=== PATIENT | female | born 1950 | race Caucasian/White ===

== ENCOUNTER 2018-07-02 11:46 | Inpatient (IN) ==
--- NOTE | 2018-07-02 12:27 | Emergency Department Note ---
Addendum entered and electronically signed by Reji Chopra DO 07/02/18 14:26: EKG #1 12:14 Heart rate 74 bpm, WI interval 132 ms, QRS duration 82 ms, QTC 44 ms, normal axi s. Sinus rhythm ventricular rate of 74 beats for minute. No evidence of any ischemic ST changes. Original Note: Disposition Clinical Impression: Anemia Qualifiers: Anemia type: unspecified type Qualified Code(s): D64.9 - Anemia, unspecified Disposition: Home, Self-Care Condition: Fair General Adult HPI - General Chief complaint: ED Recheck/Abnormal Lab/Rx Stated complaint: Low Hemoglobin Time Seen by Provider: 07/02/18 12:01 Source: patient Mode of arrival: ambulatory Limitations: no limitations Nursing Notes Reviewed: Yes Vital Signs Reviewed: Yes - History of Present Illness HPI Narrative: 67-year-old female presents emergency department with concern for low hemoglobin. Patient states that she has had recent blood transfusion last few months. She is following oncology for low hemoglobin. Was told by her physician to come into the emergency department as her hemoglobin was low. Patient reporting weakness. Reporting any bleeding. Denies any chest pain, pressure, tightness, nausea, vomiting. Pain Scale: 0 - Related Data Home Medications Medication Instructions Recorded Confirmed Levothyroxine [Synthroid] 50 mcg PO DAILY 09/04/15 05/04/18 Aspirin [Lo-Dose Aspirin EC] 81 mg PO DAILY 10/20/17 05/04/18 Atorvastatin Calcium [Lipitor] 80 mg PO HS 10/20/17 05/04/18 Cholecalciferol (Vitamin D3) 2,000 unit PO DAILY 10/20/17 05/04/18 [Vitamin D3] Metoprolol Succinate [Toprol Xl] 25 mg PO DAILY 01/26/18 05/04/18 Nitroglycerin [Nitrostat] 0.4 mg SL PRN PRN 05/04/18 05/04/18 Previous Rx's Medication Instructions Recorded Pyridoxine (B-6) [Vitamin B-6] 50 mg PO DAILY #30 tablet 05/04/18 Allergies Allergy/AdvReac Type Severity Reaction Status Date / Time No Known Allergies Allergy Verified 05/04/18 09:24 All systems ED: reviewed and negative except as stated. Review of Systems: As Per HPI Constitutional: Denies: fever Cardiovascular: Denies: chest pain, palpitations, syncope Respiratory: Denies: cough, dyspnea, hemoptysis Gastrointestinal: Denies: abdominal pain, nausea, vomiting, hematemesis, melena, hematochezia Genitourinary: Denies: hematuria Musculoskeletal: Denies: back pain Neurological: Reports: weakness Hematological/Lymphatic: Denies: easy bleeding Past Medical History - Past Medical History Medical history: Reports: thyroid disease Surgical history: Reports: cataract Psychiatric history: Reports: depression - Social History Smoking Status: Current every day smoker Smokeless Tobacco Status: No Alcohol use: Reports: none Drug use: Reports: none Physical Exam - General Limitations: no limitations General appearance: alert, in no apparent distress - Head Head exam: normocephalic - Eye Eye exam: Present: other (Conjunctival pallor) - ENT ENT exam: mucous membranes moist - Neck Neck exam: Present: trachea midline - Chest Chest inspection: Present: symmetric chest wall rise - Respiratory Respiratory exam: Present: normal lung sounds bilaterally. Absent: respiratory distress, accessory muscle use - Cardiovascular Cardiovascular exam: Present: regular rate, normal rhythm, normal heart sounds - Abdominal Exam Abdominal exam: Present: soft, Non-Tender. Absent: distention, guarding - Extremities Exam Extremities exam: Present: normal capillary refill - Back Exam Back exam: Present: full ROM - Neurological Exam Neurological exam: Present: alert, oriented X3 - Psychiatric Psychiatric exam: Present: normal affect, normal mood - Skin Skin exam: Present: warm, dry, intact, pallor. Absent: rash Course Vital Signs Temperature 98.6 F 07/02/18 11:52 Pulse Rate 90 07/02/18 11:52 Respiratory Rate 16 07/02/18 11:52 Blood Pressure 107/52 07/02/18 11:52 O2 Sat by Pulse Oximetry 100 07/02/18 11:52 Temperature 98.6 F 07/02/18 11:52 Pulse Rate 90 07/02/18 11:52 Respiratory Rate 16 07/02/18 11:52 Blood Pressure 107/52 07/02/18 11:52 O2 Sat by Pulse Oximetry 100 07/02/18 11:52 Oxygen Delivery Oxygen Delivery Room Air Medical Decision Making - MDM Narrative Medical decision making narrative: 67-year-old female presented to emergency department with concern for anemia. On physical exam, patient conjunctival pallor, was pale. She was reporting weakness as her symptoms. Hemoglobin here 4.4. I spoke with the shake feeder oncologist, Dr. Trinidad. He requested that I place an LDH, haptoglobin, reticulo cyte count. These results are pending. Patient to be admitted. I ordered 3 units of blood. Spoke with the patient bedside she agrees with the plan. Patient currently even though severely anemic, is hemodynamically stable not in any acute distress. Vital Signs Temperature 98.6 F 07/02/18 11:52 Pulse Rate 90 07/02/18 11:52 Respiratory Rate 16 07/02/18 11:52 Blood Pressure 107/52 07/02/18 11:52 O2 Sat by Pulse Oximetry 100 07/02/18 11:52 Temperature 98.6 F 07/02/18 11:52 Pulse Rate 90 07/02/18 11:52 Respiratory Rate 16 07/02/18 11:52 Blood Pressure 107/52 07/02/18 11:52 O2 Sat by Pulse Oximetry 100 07/02/18 11:52 Oxygen Delivery Oxygen Delivery Room Air - Lab Data Result diagrams: 07/02/18 12:26 07/02/18 12:26 Lab Results 07/02/18 07/02/18 07/02/18 Range/Units 12:26 12:26 12:26 WBC 3.0 L (4.3-11.1) K/mcL RBC 1.23 L (3.82-4.97) M/mcL Hgb 4.4 L* (11.5-15.4) g/dL Hct 13.6 L* (35.3-44.9) % MCV 110.6 H (83.0-100.0) fL MCH 35.8 H (28.0-33.3) pg MCHC 32.4 (31.6-35.5) g/dL RDW TNP Plt Count 207 (140-400) K/mcL MPV 12.4 (9.4-12.4) fL Reticulocyte # (0.05-0.10) M/mcL Immature Gran % 0.7 (0-4) % Seg Neutrophils % 33.6 % Lymphocytes % 55.3 % Monocytes % 5.0 % Eosinophils % 4.7 % Basophils % 0.7 % Neutrophils # 1.0 L (1.6-8.9) K/mcL Lymphocytes # 1.7 (0.6-4.6) K/mcL Monocytes # 0.2 (0.0-1.3) K/mcL Eosinophils # 0.1 (0.0-0.6) K/mcL Basophils # 0.0 (0.0-0.2) K/mcL Nucleated RBCs/100 WBC 0.7 H (0) /100 WBC Percent Retic (1.6-2.8) % Immature Retic Fraction (11.0-38.0) % Retic Hgb Equivalent (28.61-36.33) pg PT 13.1 H (9.4-12.1) Seconds INR 1.2 APTT 26.8 (26.0-36.0) Seconds Sodium 135 L (136-145) mEq/L Potassium 4.0 (3.5-5.1) mEq/L Chloride 106 (98-107) mEq/L Carbon Dioxide 24 (23-29) mEq/L BUN 9 (8-23) mg/dL Creatinine 0.80 (0.60-1.20) mg/dL Est GFR ( Amer) > 60 (> 60) Est GFR (Non-Af Amer) > 60 (> 60) BUN/Creatinine Ratio 11 (6-26) Glucose 103 (70-105) mg/dL Calculated Osmolality 279 L (280-300) Calcium 9.2 (8.6-10.3) mg/dL Blood Type Antibody Screen Crossmatch 07/02/18 07/02/18 Range/Units 12:26 13:06 WBC (4.3-11.1) K/mcL RBC (3.82-4.97) M/mcL Hgb (11.5-15.4) g/dL Hct (35.3-44.9) % MCV (83.0-100.0) fL MCH (28.0-33.3) pg MCHC (31.6-35.5) g/dL RDW Plt Count (140-400) K/mcL MPV (9.4-12.4) fL Reticulocyte # 0.02 L (0.05-0.10) M/mcL Immature Gran % (0-4) % Seg Neutrophils % % Lymphocytes % % Monocytes % % Eosinophils % % Basophils % % Neutrophils # (1.6-8.9) K/mcL Lymphocytes # (0.6-4.6) K/mcL Monocytes # (0.0-1.3) K/mcL Eosinophils # (0.0-0.6) K/mcL Basophils # (0.0-0.2) K/mcL Nucleated RBCs/100 WBC (0) /100 WBC Percent Retic 1.7 (1.6-2.8) % Immature Retic Fraction 35.2 (11.0-38.0) % Retic Hgb Equivalent 39.9 H (28.61-36.33) pg PT (9.4-12.1) Seconds INR APTT (26.0-36.0) Seconds Sodium (136-145) mEq/L Potassium (3.5-5.1) mEq/L Chloride (98-107) mEq/L Carbon Dioxide (23-29) mEq/L BUN (8-23) mg/dL Creatinine (0.60-1.20) mg/dL Est GFR ( Amer) (> 60) Est GFR (Non-Af Amer) (> 60) BUN/Creatinine Ratio (6-26) Glucose (70-105) mg/dL Calculated Osmolality (280-300) Calcium (8.6-10.3) mg/dL Blood Type O POSITIVE Antibody Screen NEGATIVE Crossmatch See Detail Attestation Statement - Attestation Attestation: I, Rob Basurto, examined this patient and my medical decision-making was reviewed with the AUTO HIKER/PA/Advanced Practice Nurse/Resident Physician. I agree with the documented findings, disposition and treatment plan as described except to the extent set forth below. 67-year-old female presents emergency Department with concerns of possible anemia. Patient states she has a history of anemia and follows Dr. Raza for further evaluation. Patient states she has had multiple scans and biopsies looking for source of her anemia without obvious etiology. Patient has required multiple transfusions in the past. She is felt weak and fatigued over the past 4 days. Denies recent fevers, chest pain, syncope, hematochezia, melena. We will obtain CBC and type and screen. Patient will likely require transfusion as she is pale on exam. EKG showed normal sinus rhythm with a rate of 74 without evidence of STEMI or other dysrhythmia. Laboratory evaluation and disposition pending at this time.
[2018-07-02 12:40] LABS: Platelet Count 207 K/mcL (140-400)
[2018-07-02 12:42] LABS: Basophils % 0.7 %; Eosinophils # 0.1 K/mcL (0.0-0.6); Eosinophils % 4.7 %; Immature Granulocytes % 0.7 % (0-4); Lymphocytes # 1.7 K/mcL (0.6-4.6); Lymphocytes % 55.3 %; Mean Corpuscular HGB Conc 32.4 g/dL (31.6-35.5); Mean Corpuscular Hemoglobin 35.8 pg (28.0-33.3); Mean Corpuscular Volume 110.6 fL (83.0-100.0); Mean Platelet Volume 12.4 fL (9.4-12.4); Monocytes # 0.2 K/mcL (0.0-1.3); Nucleated Red Blood Cells 0.7 /100 WBC (0); Red Blood Count 1.23 M/mcL (3.82-4.97); Segmented Neutrophils % 33.6 %
[2018-07-02 12:50] LABS: Hemoglobin 4.4 g/dL (11.5-15.4)
[2018-07-02 12:51] LABS: Hematocrit 13.6 % (35.3-44.9)
[2018-07-02 12:55] LABS: INR 1.2; Prothrombin Time 13.1 Seconds (9.4-12.1)
[2018-07-02 12:56] LABS: BUN/Creatinine Ratio 11 (6-26); Blood Urea Nitrogen 9 mg/dL (8-23); Calcium 9.2 mg/dL (8.6-10.3); Carbon Dioxide 24 mEq/L (23-29); Chloride 106 mEq/L (98-107); Glucose 103 mg/dL (70-105); Osmolality,Calculated 279 (280-300); Sodium 135 mEq/L (136-145); eGFR For Non-African Americans > 60 (> 60)
[2018-07-02 12:57] LABS: Activated Partial Thrombo Time 26.8 Seconds (26.0-36.0)
[2018-07-02 13:26] LABS: Immature Reticulocyte % 35.2 % (11.0-38.0); Retculocyte # 0.02 M/mcL (0.05-0.10); Reticulocyte % 1.7 % (1.6-2.8)
--- NOTE | 2018-07-02 15:05 | Oncology Inp Consult Note ---
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 This is most clinically c/w MDS with ringed sideroblasts. In preparation for erythropoietin stimulating agents, will assess baseline erythropoietin level. Aranesp to be arranged as an outpatient pending insurance approval. Agree with transfusion of 3 U PRBC. Will repeat CBC in AM. [place] for H/H to be at a minimum of 7, preferably 8, at discharge. Will write for Lasix 40 mg po x 1 between unit 2 and 3 Will write for normal diet. May d/c tomorrow if H/H at goal. I will arrange f/u with Dr. Mendoza next week. - Data of Consult Patient: known to practice within the last 3 years Requesting Physician: Sushant Valencia MD Primary Care Provider: Marcela Gonsales MD - Consult Narrative Reason for consult: Anemia History of present illness: Ms. Olguin is a 67 year old female who is under the care of my partner, Dr. Bullock, with newly diagnosed MDS. She presented with worsening macrocytic anemia over the past year. Bone marrow aspirate and biopsy December 2016 revealed a normal cellular marrow with adequate iron. Cytogenetics were normal. Fish was not performed. Iron stores were adequate. Patient was hospitalized April 02 [id number] with a hemoglobin of 5. She received 2 units packed red blood cells. Hemoglobin was 8.4 at her last visit in this office May 04.. Repeat bone ma rrow aspirate and biopsy April 2018 revealed a normocellular bone marrow with increased ring sideroblasts, mild relative erythroid hyperplasia with mild megaloblastic/ megaloblastoid change. Aranesp was recommended but not approved by her insurance. Pyridoxine initiated. Molecular analysis shows an SF3B1 mutation. She presented emergency department with profound fatigue, REDDY and labs by Dr. Teran with a hemoglobin of 4.4, MCV 110.6, MCH 35.8, white blood cell count 3000 with 1000 neutrophils and platelet count of 207,000. 3 units of packed blood cells have been arranged by the emergency department attending. Currently, she feels well. No angina/chest pain or resting SOB. No lower extremity swelling. Just worn out and hungry. Denies any bleeding symptoms including epistaxis, hemoptysis, hematemesis, melena or hematochezia. Past Med Surg Social Fam HX - Past Medical History Medical history: thyroid disease, other Additional medical history: heart murmur. SMOKER. HIGH CHOLESTEROL. HYPOTHYROIDISM. MDS Psychiatric history: depression - Past Surgical History Surgical History: cataract Additional surgical history: BRAIN SURGERY. TUBAL LIGATION. D & C - Social History Smoking Status: Current every day smoker Smokeless Tobacco Status: No Alcohol use: none Drug use: none Medications and Allergies Levothyroxine [Synthroid] 50 mcg PO DAILY 09/04/15 [History] Aspirin [Lo-Dose Aspirin EC] 81 mg PO DAILY 10/20/17 [History] Atorvastatin Calcium [Lipitor] 80 mg PO HS 10/20/17 [History] Cholecalciferol (Vitamin D3) [Vitamin D3] 2,000 unit PO DAILY 10/20/17 [History] Metoprolol Succinate [Toprol Xl] 25 mg PO DAILY 01/26/18 [History] Nitroglycerin [Nitrostat] 0.4 mg SL PRN PRN 05/04/18 [History] Pyridoxine (B-6) [Vitamin B-6] 50 mg PO DAILY #30 tablet 05/04/18 [Rx] Allergy/AdvReac Type Severity Reaction Status Date / Time No Known Allergies Allergy Verified 05/04/18 09:24 All systems: reviewed and no additional remarkable complaints except as stated Constitutional: Present: fatigue, lethargy, malaise, weakness Eyes: Present: as per HPI Ears: Present: as per HPI Nose, mouth and throat: Present: as per HPI Cardiovascular: Present: dyspnea on exertion Respiratory: Present: as per HPI Gastrointestinal: Present: as per HPI Oncology - Exam - Constitutional Vitals: Temp Pulse Resp BP Pulse Ox 98.6 F 90 16 108/48 100 07/02/18 13:50 07/02/18 13:50 07/02/18 13:50 07/02/18 13:50 07/02/18 13:50 General appearance: average body habitus, no acute distress, thin - Head Head exam: Present: atraumatic, normal inspection, normocephalic - Eye Eye exam: Present: normal appearance, sclera anicteric Additional comments: Conjuctiva pale - ENT ENT exam: Present: mucous membranes moist, normal exam, normal oropharynx - Neck Neck exam: Present: full ROM, normal inspection - Respiratory Respiratory exam: Present: CTAB - Cardiovascular Cardiovascular exam: Present: RRR, systolic murmur - GI/Abdominal GI/Abdominal exam: Present: normal bowel sounds, soft - Extremities Exam Extremities exam: Present: normal inspection - Back Exam Back exam: Present: normal inspection - Neurological Exam Neurological exam: Present: alert, CN II-XII intact, normal gait, oriented X3, no focal deficits - Skin Skin exam: Present: pallor Oncology - Results Labs: 07/02/18 07/02/18 07/02/18 13:06 12:26 12:26 WBC RBC Hgb Hct MCV MCH MCHC RDW Plt Count MPV Reticulocyte # 0.02 L Immature Gran % Seg Neutrophils % Lymphocytes % Monocytes % Eosinophils % Basophils % Neutrophils # Lymphocytes # Monocytes # Eosinophils # Basophils # Nucleated RBCs/100 WBC Percent Retic 1.7 Immature Retic Fraction 35.2 Retic Hgb Equivalent 39.9 H PT INR APTT Sodium 135 L Potassium 4.0 Chloride 106 Carbon Dioxide 24 BUN 9 Creatinine 0.80 Est GFR ( Amer) > 60 Est GFR (Non-Af Amer) > 60 BUN/Creatinine Ratio 11 Glucose 103 Calculated Osmolality 279 L Calcium 9.2 Blood Type O POSITIVE Antibody Screen NEGATIVE Crossmatch See Detail 07/02/18 07/02/18 12:26 12:26 WBC 3.0 L RBC 1.23 L Hgb 4.4 L* Hct 13.6 L* MCV 110.6 H MCH 35.8 H MCHC 32.4 RDW TNP Plt Count 207 MPV 12.4 Reticulocyte # Immature Gran % 0.7 Seg Neutrophils % 33.6 Lymphocytes % 55.3 Monocytes % 5.0 Eosinophils % 4.7 Basophils % 0.7 Neutrophils # 1.0 L Lymphocytes # 1.7 Monocytes # 0.2 Eosinophils # 0.1 Basophils # 0.0 Nucleated RBCs/100 WBC 0.7 H Percent Retic Immature Retic Fraction Retic Hgb Equivalent PT 13.1 H INR 1.2 APTT 26.8 Sodium Potassium Chloride Carbon Dioxide BUN Creatinine Est GFR ( Amer) Est GFR (Non-Af Amer) BUN/Creatinine Ratio Glucose Calculated Osmolality Calcium Blood Type Antibody Screen Crossmatch Consult Discharge Plan - Plan Referrals: Marcela Gonsales MD [Primary Care Provider] - Inpatient Charges Provider: Dr. Radha Trinidad Consult - Observation: [id number]
[2018-07-02 15:29] LABS: Lactate Dehydrogenase 228 Units/L (140-271)
[2018-07-02] MEDS ORDERED: 0.9 % Sodium Chloride 250 ML ONE ×2 (17:26→21:40)
[2018-07-02] MEDS ORDERED: Naloxone 0.4 MG/ML INJ IVP PRN (18:34)
[2018-07-02] MEDS ORDERED: Nitroglycerin 0.4 MG TAB.SUBL SL PRN (18:39)
--- NOTE | 2018-07-02 18:41 | Internal Med History&Physical ---
Date of Encounter: 07/02/18 Time of Encounter: 18:41 Internal Medicine - H&P: HPI Chief complaint: I might have anemia Admitted From: Home Plans for Post Hospital Care: Home History of present illness: Ms. Olguin is a 67 year old female with PMH of HTN, HLD, Chronic anemia, MDS , tobacco abuse, who follows up with hematology and has had multiple admissions in the past She reports having gone to Dr. Teran for a regular follow up and complained of flu-like symptoms, and weakness and easy fatigability. Dr. Teran checked her Hb and called her from home to present to the ER due to anemia At my time of review, she has no new complains and is asynptomatic She had been ordered 3 units of blood and is currently receiving transfusion No angina/chest pain or resting SOB. No lower extremity swelling. Just worn out and hungry. Denies any bleeding symptoms including epistaxis, hemoptysis, hematemesis, melena or hematochezia. Sinus rhythm ventricular rate of 74 beats for minute. No evidence of any ischemic ST changes. Hb on arrival 4.4, PLT WNL, WBC 3.0, Coag panel WNL, Chem WNL, LDH 228, She is currently hemodynamically stable, and has been reviewed by oncology Past Med Surg Social Fam HX - Past Medical History Medical history: hypertension, thyroid disease, other Additional medical history: heart murmur. SMOKER. HIGH CHOLESTEROL. HYPOTHYROIDISM. MDS Psychiatric history: depression - Past Surgical History Surgical History: cataract Additional surgical history: BRAIN SURGERY. TUBAL LIGATION. D & C - Social History Smoking Status: Current every day smoker Smokeless Tobacco Status: No Alcohol use: none Drug use: none - Family History Mother Age: 79 Family Member Ethnicity: Non- Living Status: Age at : 79 Cause of : cancer Hx Family Cancer: Yes Internal Medicine - H&P: Meds Aspirin [Lo-Dose Aspirin EC] 81 mg PO DAILY 10/20/17 [History] Atorvastatin Calcium [Lipitor] 80 mg PO HS 10/20/17 [History] Cholecalciferol (Vitamin D3) [Vitamin D3] 2,000 unit PO DAILY 10/20/17 [History] Metoprolol Succinate [Toprol Xl] 25 mg PO DAILY 01/26/18 [History] Nitroglycerin [Nitrostat] 0.4 mg SL PRN PRN 05/04/18 [History] Pyridoxine (B-6) [Vitamin B-6] 50 mg PO DAILY #30 tablet 05/04/18 [Rx] Levothyroxine [Synthroid] 75 mcg PO QAM 07/02/18 [History] Allergy/AdvReac Type Severity Reaction Status Date / Time No Known Allergies Allergy Verified 05/04/18 09:24 All Systems PM: A 10-system review of systems was performed and is negative for pertinent findings except as documented above in the HPI. - Constitutional Constitutional: as per HPI, malaise, no chills, no fever(s), no night sweats - EENT Eyes: no change in vision, no discharge, no pain, no photophobia Ears: no ear discharge, no ear pain, no tinnitus Nose, mouth and throat: no dysphagia, no nasal discharge, no neck pain, no sore throat - Cardiovascular Cardiovascular ROS IM: no chest pain, no diaphoresis, no dyspnea, no lightheadedness, no palpitations, no syncope - Respiratory Respiratory: no cough, no dyspnea, no wheezing, no excessive phlegm production - Gastrointestinal Gastrointestinal: no abdominal pain, no diarrhea, no hematemesis, no hematochezia, no melena, no nausea, no vomiting - Genitourinary Genitourinary: no change in urinary stream, no dysuria, no flank pain, no hematuria - Musculoskeletal Musculoskeletal ROS IM: no numbness, no tingling - Integumentary Integumentary IM: no rash, no unusual bruising - Neurological Neurological ROS: no confusion, no convulsions, no focal weakness, no numbness, no tingling, no tremor(s) - Hematologic/Lymphatic Hematologic/Lymphatic: no easy bruising - Constitutional Vitals: Temp Pulse Resp BP Pulse Ox 98.4 F 79 16 92/46 100 07/02/18 17:50 07/02/18 17:50 07/02/18 17:50 07/02/18 17:50 07/02/18 17:35 General appearance: Present: A&O X 3, pleasant, no acute distress Exam: see below - Head Head exam: Present: atraumatic, normocephalic - Eye Eye exam: Present: PERRL, conjuntiva pink, sclera anicteric Pupils: Present: PERRL - Neck Neck exam general surgery: Present: supple, trachea midline. Absent: lymphadenopathy - Respiratory Respiratory exam: Present: CTAB. Absent: accessory muscle use, rales, rhonchi, wheezes - Cardiovascular Cardiovascular exam: Present: RRR, +S1, +S2, systolic murmur. Absent: diastolic murmur, gallop, rubs - GI/Abdominal GI/Abdominal exam: Present: normal bowel sounds, soft, no peritoneal signs. Absent: distended, tenderness - Extremities Exam Extremities exam: Present: warm, radial pulses palpable and symmetrical. Absent: calf tenderness, cyanotic, pedal edema - Neurological Exam Neurological exam: Present: CN II-XII intact, oriented X3, no focal deficits. Absent: pronater drift, facial droop, speech deficit - Skin Skin exam: Present: dry, intact Internal Med - H&P Results - Labs CBC & Chem 7: 07/02/18 12:26 07/02/18 12:26 Labs: Short CBC 07/02/18 Range/Units 12:26 WBC 3.0 L (4.3-11.1) K/mcL Hgb 4.4 L* (11.5-15.4) g/dL Hct 13.6 L* (35.3-44.9) % Plt Count 207 (140-400) K/mcL Neutrophils # 1.0 L (1.6-8.9) K/mcL BMP 07/02/18 12:26 Sodium 135 L Potassium 4.0 Chloride 106 Carbon Dioxide 24 BUN 9 Creatinine 0.80 Glucose 103 Calcium 9.2 - Assessment and plan (1) Anemia Current Visit: Yes Status: Acute Assessment and plan: Continue RBC transfusion X3 lasix inbetween doses Hold metoprolol, blood pressure is soft No evidence of bleeding Continue home multivitamins Onc eval noted Qualifiers: Anemia type: unspecified type Qualified Code(s): D64.9 - Anemia, unspecified (2) HTN (hypertension) Current Visit: Yes Status: Chronic Assessment and plan: Hold metoprolol Qualifiers: Hypertension type: essential hypertension Qualified Code(s): I10 - Essential (primary) hypertension (3) HLD (hyperlipidemia) Current Visit: Yes Status: Acute Qualifiers: Hyperlipidemia type: unspecified Qualified Code(s): E78.5 - Hyperlipidemia, unspecified (4) Myelodysplasia (myelodysplastic syndrome) Current Visit: Yes Status: Chronic Assessment and plan: Karl blevins noted, appreciated, follow recs (5) Tobacco abuse Current Visit: Yes Status: Chronic Assessment and plan: encourage cessation - Time Spent With Patient Total time spent is greater than 50% in coordination of care (as documented) at patient's floor/unit and/or counseling patient:
[2018-07-02] MEDS ORDERED: Furosemide 40 MG TABLET PO ONE (20:00)
[2018-07-03] MEDS ORDERED: 0.9 % Sodium Chloride 250 ML ONE (02:47)
[2018-07-03 06:50] LABS: Basophils # 0.1 K/mcL (0.0-0.2); Basophils % 1.9 %; Eosinophils # 0.2 K/mcL (0.0-0.6); Eosinophils % 5.2 %; Hematocrit 22.6 % (35.3-44.9); Hemoglobin 7.7 g/dL (11.5-15.4); Immature Granulocytes % 0.6 % (0-4); Lymphocytes # 1.6 K/mcL (0.6-4.6); Lymphocytes % 52.6 %; Mean Corpuscular HGB Conc 34.1 g/dL (31.6-35.5); Mean Corpuscular Hemoglobin 32.4 pg (28.0-33.3); Mean Platelet Volume 12.3 fL (9.4-12.4); Monocytes # 0.1 K/mcL (0.0-1.3); Monocytes % 4.5 %; Neutrophils # 1.1 K/mcL (1.6-8.9); Nucleated Red Blood Cells 0.6 /100 WBC (0); Platelet Count 170 K/mcL (140-400); Red Blood Count 2.38 M/mcL (3.82-4.97); Red Cell Distribution Width 22.9 % (11.5-14.5); Segmented Neutrophils % 35.2 %
[2018-07-03 07:10] LABS: Alanine Aminotransferase 12 Units/L (7-52); Albumin 3.7 g/dL (3.5-5.7); Albumin/Globulin Ratio 1.7 (1.1-2.2); Alkaline Phosphatase 67 Units/L (34-104); Aspartate Amino Transferase 18 Units/L (13-39); BUN/Creatinine Ratio 15 (6-26); Bilirubin,Total 2.7 mg/dL (0.3-1.0); Blood Urea Nitrogen 11 mg/dL (8-23); Calcium 8.9 mg/dL (8.6-10.3); Carbon Dioxide 22 mEq/L (23-29); Chloride 110 mEq/L (98-107); Globulin 2.2 g/dL (2.4-3.5); Glucose 88 mg/dL (70-105); Osmolality,Calculated 283 (280-300); Potassium 4.1 mEq/L (3.5-5.1); Sodium 137 mEq/L (136-145); Total Protein 5.9 g/dL (6.4-8.9); eGFR For Non-African Americans > 60 (> 60)
[2018-07-03 07:54] VITALS: BP 107/47
[2018-07-03] MEDS ORDERED: Aspirin Enteric Coated 81 MG Tablet PO SCH (09:00)
[2018-07-03] MEDS ORDERED: Cholecalciferol (D-3) 1,000 UNIT TABLET PO SCH (09:00)
[2018-07-03] MEDS ORDERED: Pyridoxine (B-6) 50 MG TABLET PO SCH (09:00)
[2018-07-03] MEDS ORDERED: Metoprolol XL (24 HR) Succ 25 MG TAB.ER.24H PO SCH (09:00)
--- NOTE | 2018-07-03 10:07 | Discharge Summary ---
- NOTES TO OUTPATIENT PROVIDER Notes to Outpatient Provider: 67 F with MDS who presented with symptomatic anemia due to progression of disease, no bleeding, Hb 4.4 on arrival, no source of bleeding, received 3 untis RBCs, Hb improved to 7.7 this a.m, patient is asymptomatic and hemodynamically stable. Blood pressure is low normal and patient's home dose of metoprolol has been decreased to 12.5mg daily. Oncology saw patient in admission and recommended follow up within the week. Smoking cessation encouraged. Plan of care discussed, verbalized understanding Orders not resulted at time of discharge: Pending orders 07/02/18 13:06 Haptoglobin Stat 07/03/18 06:23 Erythropoietin AM 0400 Date of Encounter: 07/03/18 Time of Encounter: 10:06 - Discharge Diagnosis (1) Anemia Priority: Primary Status: Acute Qualifiers: Anemia type: unspecified type Qualified Code(s): D64.9 - Anemia, unspecified (2) HTN (hypertension) Priority: Secondary Status: Chronic Qualifiers: Hypertension type: essential hypertension Qualified Code(s): I10 - Essential (primary) hypertension (3) HLD (hyperlipidemia) Priority: Secondary Status: Chronic Qualifiers: Hyperlipidemia type: unspecified Qualified Code(s): E78.5 - Hyperlipidemia, unspecified (4) Myelodysplasia (myelodysplastic syndrome) Priority: Secondary Status: Chronic (5) Tobacco abuse Priority: Secondary Status: Chronic Hospital course: Ms. Olguin is a 67 year old female with PMH of HTN, HLD, Chronic anemia, MDS , tobacco abuse, who follows up with hematology and has had multiple admissions in the past 67 F with MDS who presented with symptomatic anemia due to progression of disease, no bleeding, Hb 4.4 on arrival, no source of bleeding, No angina/chest pain or resting SOB. No lower extremity swelling. Just worn out and hungry. Denies any bleeding symptoms including epistaxis, hemoptysis, hematemesis, melena or hematochezia. Sinus rhythm ventricular rate of 74 beats for minute. No evidence of any ischemic ST changes. Hb on arrival 4.4, PLT WNL, WBC 3.0, Coag panel WNL, Chem WNL, LDH 228, She is currently hemodynamically stable, and has been reviewed by oncology She received 3 untis RBCs, Hb improved to 7.7 this a.m, patient is asymptomatic and hemodynamically stable. Blood pressure is low normal and patient's home dose of metoprolol has been decreased to 12.5mg daily. Oncology saw patient in admission and recommended follow up within the week. Also, patient has follow up with PCP 07/09 Smoking cessation encouraged, counselled for 3 mins Plan of care discussed, verbalized understanding Discharge discussed with: patient, nurse Time spent discussing smoking cessation with patient: 3 to 10 minutes - Time Spent with Patient Total time spent providing and/or coordinating discharge services: Less than 30 minutes - Discharge Medications Prescriptions: Metoprolol XL (24 HR) Succ [Toprol XL] 12.5 mg PO DAILY #30 tab.er.24h Home Medications: Aspirin [Lo-Dose Aspirin EC] 81 mg PO DAILY 10/20/17 [History] Atorvastatin Calcium [Lipitor] 80 mg PO HS 10/20/17 [History] Cholecalciferol (Vitamin D3) [Vitamin D3] 2,000 unit PO DAILY 10/20/17 [History] Nitroglycerin [Nitrostat] 0.4 mg SL PRN PRN 05/04/18 [History] Pyridoxine (B-6) [Vitamin B-6] 50 mg PO DAILY #30 tablet 05/04/18 [Rx] Levothyroxine [Synthroid] 75 mcg PO QAM 07/02/18 [History] Metoprolol XL (24 HR) Succ [Toprol XL] 12.5 mg PO DAILY #30 tab.er.24h 07/03/18 [Rx] Allergies/Adverse Reactions: Allergy/AdvReac Type Severity Reaction Status Date / Time No Known Allergies Allergy Verified 05/04/18 09:24 Date of admission: 07/02/18 19:09 Primary care physician: Marcela Gonsales MD Consults: 07/02/18 13:06 Consult to Oncology Hematology [CONS] Stat Consulting Provider: Mykel Trinidad Reason for Consult: hemoglobin 4.4 Time Notified: 13:07 Call Completed: Yes Discharging clinician: Rubio Cheng Anticipated date of discharge: 07/03/18 - Constitutional Vitals: Temp Pulse Resp BP Pulse Ox 98.1 F 67 16 107/47 96 07/03/18 07:52 07/03/18 07:52 07/03/18 07:52 07/03/18 07:52 07/03/18 07:52 General appearance: Present: A&O X 3, pleasant, no acute distress Exam: see below - Head Head exam: Present: atraumatic, normocephalic - Eye Eye exam: Present: PERRL, conjuntiva pink, sclera anicteric Pupils: Present: PERRL - Neck Neck exam general surgery: Present: supple, trachea midline. Absent: lymphadenopathy - Respiratory Respiratory exam: Present: CTAB. Absent: accessory muscle use, rales, rhonchi, wheezes - Cardiovascular Cardiovascular exam: Present: RRR, +S1, +S2, systolic murmur. Absent: diastolic murmur, gallop, rubs - GI/Abdominal GI/Abdominal exam: Present: normal bowel sounds, soft, no peritoneal signs. Absent: distended, tenderness - Extremities Exam Extremities exam: Present: warm, radial pulses palpable and symmetrical. Absent: calf tenderness, cyanotic, pedal edema - Neurological Exam Neurological exam: Present: CN II-XII intact, oriented X3, no focal deficits. Absent: pronater drift, facial droop, speech deficit - Skin Skin exam: Present: dry, intact - Patient Status Disposition: Home, Self-Care Condition: Fair Functional capacity at discharge: independent ambulation Overall status at discharge: patient is back to baseline - Discharge Instructions Follow Up With: Marcela Gonsales MD [Primary Care Provider] - - Diet and Activity Activity: resume usual activities as tolerated Diet: low fat, low cholesterol, low salt diet
--- NOTE | 2018-07-03 19:07 | Electrocardiograph Report ---
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
== END 2018-07-03 12:29 | disposition home or self-care (01) | DRG 812 ==
LOC: EMEROOARM 11:46 → 2NENU 11:46 → SUATTDRO 13:24 → 2NENU 14:36
PROVIDERS: ADMIT Internal Medicine; ATTEND Internal Medicine

== ENCOUNTER 2018-07-30 09:55 | Observation (INO) ==
[2018-07-30] MEDS ORDERED: 0.9 % Sodium Chloride 1,000 ML IVC ONE (10:12)
--- NOTE | 2018-07-30 10:51 | Emergency Department Note ---
Disposition Clinical Impression: Hypotension Qualifiers: Hypotension type: other hypotension type Qualified Code(s): I95.89 - Other hypotension Anemia Qualifiers: Anemia type: other cause Disposition: Still a Patient Condition: Fair Referrals: NONE,PCP [Primary Care Provider] - General Adult HPI - General Chief complaint: ED Weakness Stated complaint: "low BP sent from " Time Seen by Provider: 07/30/18 10:01 Nursing Notes Reviewed: Yes Vital Signs Reviewed: Yes - History of Present Illness HPI Narrative: ED ATTESTATION NOTE: I examined this patient and my medical decision-making was reviewed with the Resident Physician/MELTER SUPERVISOR/PA/Student. I have personally performed a face to face evaluation on this patient & I agree with the documented findings, disposition and treatment plan as described except to the extent set forth below. Patient was seen with emergency medicine resident Rhona Meza please see copy of her note for details of this encounter Briefly: 67-year-old female history of anemia in the past with a hemoglobin levels for comes in with low blood pressure lightheadedness she appears very pale including conjunctival paleness. Denies any black stools. Is not on blood thinners. Patient is getting IV fluids screening labs. Type and cross. Disposition pending with admission anticipated possibly transfusion. Providing 30 minutes critical care service this patient. Pain Scale: 0 - Related Data Home Medications Medication Instructions Recorded Confirmed Aspirin [Lo-Dose Aspirin EC] 81 mg PO DAILY 10/20/17 07/13/18 Atorvastatin Calcium [Lipitor] 80 mg PO HS 10/20/17 07/13/18 Cholecalciferol (Vitamin D3) 2,000 unit PO DAILY 10/20/17 07/13/18 [Vitamin D3] Nitroglycerin [Nitrostat] 0.4 mg SL PRN PRN 05/04/18 07/13/18 Levothyroxine [Synthroid] 75 mcg PO QAM 07/02/18 07/13/18 Previous Rx's Medication Instructions Recorded Pyridoxine (B-6) [Vitamin B-6] 50 mg PO DAILY #30 tablet 05/04/18 Metoprolol XL (24 HR) Succ [Toprol 12.5 mg PO DAILY #30 tab.er.24h 07/03/18 XL] Allergies Allergy/AdvReac Type Severity Reaction Status Date / Time No Known Allergies Allergy Verified 07/13/18 10:15 Past Medical History - Past Medical History Medical history: Reports: hypertension, thyroid disease, other Surgical history: Reports: cataract Psychiatric history: Reports: depression 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
[2018-07-30 11:23] LABS: Basophils # 0.1 K/mcL (0.0-0.2); Basophils % 2.1 %; Eosinophils # 0.2 K/mcL (0.0-0.6); Immature Granulocytes % 0.3 % (0-4); Lymphocytes # 1.5 K/mcL (0.6-4.6); Lymphocytes % 45.4 %; Mean Corpuscular HGB Conc 32.8 g/dL (31.6-35.5); Mean Corpuscular Hemoglobin 33.1 pg (28.0-33.3); Mean Corpuscular Volume 101.1 fL (83.0-100.0); Monocytes # 0.2 K/mcL (0.0-1.3); Monocytes % 4.8 %; Neutrophils # 1.4 K/mcL (1.6-8.9); Nucleated Red Blood Cells 0.6 /100 WBC (0); Platelet Count 185 K/mcL (140-400); Red Blood Count 1.78 M/mcL (3.82-4.97); Segmented Neutrophils % 41.4 %
[2018-07-30 11:35] LABS: Hemoglobin 5.9 g/dL (11.5-15.4)
[2018-07-30 11:42] LABS: Troponin I < 0.03 ng/mL (< 0.04)
[2018-07-30 11:44] LABS: Anisocytosis 2+ (Not Present); Macrocytosis Present (Not Present); Platelet Estimate Normal (Normal)
[2018-07-30 11:54] LABS: Alanine Aminotransferase 19 Units/L (7-52); Albumin 3.9 g/dL (3.5-5.7); Albumin/Globulin Ratio 1.6 (1.1-2.2); Alkaline Phosphatase 80 Units/L (34-104); Aspartate Amino Transferase 19 Units/L (13-39); BUN/Creatinine Ratio 16 (6-26); Bilirubin,Total 1.8 mg/dL (0.3-1.0); Blood Urea Nitrogen 11 mg/dL (8-23); Calcium 8.8 mg/dL (8.6-10.3); Carbon Dioxide 25 mEq/L (23-29); Chloride 109 mEq/L (98-107); Globulin 2.5 g/dL (2.4-3.5); Glucose 95 mg/dL (70-105); Osmolality,Calculated 287 (280-300); Potassium 4.2 mEq/L (3.5-5.1); Sodium 139 mEq/L (136-145); Total Protein 6.4 g/dL (6.4-8.9); eGFR For Non-African Americans > 60 (> 60)
--- NOTE | 2018-07-30 12:01 | Emergency Department Note ---
Disposition Clinical Impression: Hypotension Qualifiers: Hypotension type: other hypotension type Qualified Code(s): I95.89 - Other hypotension Anemia Qualifiers: Anemia type: other cause Other causes of anemia: other cause, not classified Qualified Code(s): D64.89 - Other specified anemias GI bleed Qualifiers: GI bleed type/associated pathology: unspecified gastrointestinal hemorrhage type Qualified Code(s): K92.2 - Gastrointestinal hemorrhage, unspecified Disposition: Admitted As Inpatient Condition: Fair Forms: ED Satisfaction Letter Time of Disposition: 12:49 General Adult HPI - General Chief complaint: ED Weakness Stated complaint: "low BP sent from " Time Seen by Provider: 07/30/18 10:01 Source: patient Mode of arrival: ambulatory Limitations: no limitations Nursing Notes Reviewed: Yes Vital Signs Reviewed: Yes - History of Present Illness HPI Narrative: 67-year-old female with significant past medical history of myelodysplastic syndrome presenting to the emergency department chief complaint of weakness and low blood pressure. Patient states for the past 2 days she has had worsening weakness and some increased shortness of breath. She denies any fevers, chest pain or abdominal pain. She states this feels similar to the last time she was seen and needed a blood transfusion. She also states her diastolic blood pressure has been low in the 40s. She spoke with her primary care physician today who was concerned and told her to come to the emergency department for further evaluation. Patient denies any rectal bleeding, hematuria or any obvious source of bleeding at this time. Pain Scale: 0 - Related Data Home Medications Medication Instructions Recorded Confirmed Aspirin [Lo-Dose Aspirin EC] 81 mg PO DAILY 10/20/17 07/13/18 Atorvastatin Calcium [Lipitor] 80 mg PO HS 10/20/17 07/13/18 Cholecalciferol (Vitamin D3) 2,000 unit PO DAILY 10/20/17 07/13/18 [Vitamin D3] Nitroglycerin [Nitrostat] 0.4 mg SL PRN PRN 05/04/18 07/13/18 Levothyroxine [Synthroid] 75 mcg PO QAM 07/02/18 07/13/18 Metoprolol XL (24 HR) Succ [Toprol 12.5 mg PO HS 07/30/18 07/30/18 XL] Previous Rx's Medication Instructions Recorded Pyridoxine (B-6) [Vitamin B-6] 50 mg PO DAILY #30 tablet 05/04/18 Allergies Allergy/AdvReac Type Severity Reaction Status Date / Time No Known Allergies Allergy Verified 07/30/18 12:34 All systems ED: reviewed and negative except as stated. Constitutional: Reports: weakness. Denies: fever, chills Eyes: Reports: as per HPI ENT ED: Reports: as per HPI Cardiovascular: Reports: dyspnea on exertion. Denies: chest pain, palpitations Respiratory: Reports: dyspnea. Denies: cough, wheezes, hemoptysis Gastrointestinal: Denies: abdominal pain, nausea, vomiting Genitourinary: Reports: as per HPI Musculoskeletal: Reports: as per HPI Integumentary: Reports: as per HPI Neurological: Reports: weakness. Denies: numbness, paresthesias Psychiatric: Reports: as per HPI Endocrine: Reports: as per HPI Hematological/Lymphatic: Reports: as per HPI Allergic/Immunologic: Reports: as per HPI Past Medical History - Past Medical History Attestation: Yes The following information was validated with the patient. 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 Absent: scleral icterus, conjunctival injection - ENT ENT exam: normal exam, mucous membranes moist - Neck Neck exam: Present: normal inspection, full ROM. Absent: tenderness, meningismus - Chest Chest inspection: Present: normal inspection, symmetric chest wall rise. Absent: tenderness, rash - Respiratory Respiratory exam: Present: normal lung sounds bilaterally. Absent: respiratory distress, wheezes - Cardiovascular Cardiovascular exam: Present: regular rate, normal rhythm, normal heart sounds - Abdominal Exam Abdominal exam: Present: soft, Non-Tender. Absent: distention, guarding, rebound - Extremities Exam Extremities exam: Present: normal inspection, full ROM - Neurological Exam Neurological exam: Present: alert, oriented X3 - Psychiatric Psychiatric exam: Present: normal affect, normal mood - Skin Skin exam: Present: pallor Course Course Narrative: 67-year-old female presenting for weakness. In the room patient is alert and oriented 3 and hemodynamically stable. Physical exam shows pallor but otherwise benign. At this time will perform basic laboratory analysis including CBC, BMP and type and cross. Concern for patient's anemia being symptomatic at this time. Disposition pending results. Patient agrees with this plan. - Reevaluation(s) Reevaluation #1: Patient's hemoglobin 5.9. At this time we will order 2 packed red blood cell units. Stool occult also positive. Concern for GI bleed leading to patient's worsening anemia. Patient has remained alert and oriented 3 and hemodynamically stable throughout her stay. At this time will plan to admit her for further evaluation. Patient agrees with this plan. I spoke with the hospitalist non destructive testing specialist Dr. Cheng who agrees to accept the patient at this time. Vital Signs Temperature 99.6 F 07/30/18 10:04 Pulse Rate 76 07/30/18 10:04 Respiratory Rate 16 07/30/18 10:04 Blood Pressure 102/57 07/30/18 10:04 O2 Sat by Pulse Oximetry 100 07/30/18 10:04 Temperature 99.6 F 07/30/18 10:45 Pulse Rate 91 07/30/18 10:57 Respiratory Rate 16 07/30/18 10:57 Blood Pressure 106/51 07/30/18 10:57 O2 Sat by Pulse Oximetry 100 07/30/18 10:57 Oxygen Delivery Oxygen Delivery Room Air Medical Decision Making - Lab Data Result diagrams: 07/30/18 11:09 07/30/18 11:09 Lab Results 07/30/18 07/30/18 07/30/18 Range/Units 11:02 11:09 11:09 WBC 3.4 L (4.3-11.1) K/mcL RBC 1.78 L (3.82-4.97) M/mcL Hgb 5.9 L* (11.5-15.4) g/dL Hct 18.0 L (35.3-44.9) % MCV 101.1 H D (83.0-100.0) fL MCH 33.1 (28.0-33.3) pg MCHC 32.8 (31.6-35.5) g/dL RDW 23.0 H (11.5-14.5) % Plt Count 185 (140-400) K/mcL MPV 12.0 (9.4-12.4) fL Immature Gran % 0.3 (0-4) % Seg Neutrophils % 41.4 % Lymphocytes % 45.4 % Monocytes % 4.8 % Eosinophils % 6.0 % Basophils % 2.1 % Neutrophils # 1.4 L (1.6-8.9) K/mcL Lymphocytes # 1.5 (0.6-4.6) K/mcL Monocytes # 0.2 (0.0-1.3) K/mcL Eosinophils # 0.2 (0.0-0.6) K/mcL Basophils # 0.1 (0.0-0.2) K/mcL Nucleated RBCs/100 WBC 0.6 H (0) /100 WBC Platelet Estimate Normal (Normal) Anisocytosis 2+ A (Not Present) Macrocytosis Present A (Not Present) Sodium 139 (136-145) mEq/L Potassium 4.2 (3.5-5.1) mEq/L Chloride 109 H (98-107) mEq/L Carbon Dioxide 25 (23-29) mEq/L BUN 11 (8-23) mg/dL Creatinine 0.67 (0.60-1.20) mg/dL Est GFR ( Amer) > 60 (> 60) Est GFR (Non-Af Amer) > 60 (> 60) BUN/Creatinine Ratio 16 (6-26) Glucose 95 (70-105) mg/dL Calculated Osmolality 287 (280-300) Calcium 8.8 (8.6-10.3) mg/dL Total Bilirubin 1.8 H (0.3-1.0) mg/dL AST 19 (13-39) Units/L ALT 19 (7-52) Units/L Alkaline Phosphatase 80 (34-104) Units/L Troponin I < 0.03 (< 0.04) ng/mL Serum Total Protein 6.4 (6.4-8.9) g/dL Albumin 3.9 (3.5-5.7) g/dL Globulin 2.5 (2.4-3.5) g/dL Albumin/Globulin Ratio 1.6 (1.1-2.2) Stool Occult Bld Scrn Positive A (Negative) - EKG Data EKG #1 EKG attestation: Yes I reviewed and interpreted this EKG. EKG results narrative: Sinus rhythm. 72 beats for minute. MD interval 131, QRS 103, QTC 448. No sign of acute ST segment elevation or ischemia. Compared to previous EKG completed on 07/02/2018 no significant changes noted
[2018-07-30] MEDS ORDERED: Naloxone 0.4 MG/ML INJ IVP PRN (12:39)
[2018-07-30] MEDS ORDERED: Nitroglycerin 0.4 MG TAB.SUBL SL PRN (12:58)
[2018-07-30] MEDS ORDERED: 0.9 % Sodium Chloride 250 ML ONE ×2 (13:12→16:11)
--- NOTE | 2018-07-30 13:27 | Internal Med History&Physical ---
Date of Encounter: 07/30/18 Time of Encounter: 13:22 Internal Medicine - H&P: HPI Chief complaint: Fatigue, low blood pressures Admitted From: Home Plans for Post Hospital Care: Home History of present illness: Ms. Olguin is a 67 year old female with PMH of HTN, HLD, Chronic anemia, MDS , tobacco abuse, who follows up with hematology and has had multiple admissions in the past for anemia, most recent admission 06/2018 during which she was given blood transfusion She reports she had been in her usual state of health 6till about 2-3 days ago when she developed fatigue and generalized weakness. She also noted her blood pressure has been on the lower side, her diastolic blood pressure has been in the 40s. She denies nausea, vomiting, diarrhea, urinary symptoms, she denies SOB, Chest pain, leg edema, palpitations, dizziness, confusion or headaches. She has chronic cough due to tobacco abuse but this has not been above her baseline. She denies any changes in her stool color or consistency She has had no trauma and has no other symptoms She denies any changes to her medications since last admission. She is not on any blood thinners, but takes a baby ASA daily She smokes daily and has been doing so for >50 yrs, she denies illicit drug use Work up in the ER showed a myoglobin of 5.9, chronic stable leukopenia, platelet count is within normal limits, chemistry LFT are unremarkable. Physical cord blood test was positive. CXR was unremarkable She has no advance directives and is full code Past Med Surg Social Fam HX - Past Medical History Medical history: hypertension, thyroid disease, other Additional medical history: heart murmur. SMOKER. HIGH CHOLESTEROL. HYPOTHYROIDISM. ANEMIA. MDS Psychiatric history: depression - Past Surgical History Surgical History: cataract Additional surgical history: BRAIN SURGERY. TUBAL LIGATION. D & C - Social History Smoking Status: Current every day smoker Smokeless Tobacco Status: No Alcohol use: none Drug use: none - Family History Mother Family Member Ethnicity: Non- Living Status: Hx Family Cancer: Yes Internal Medicine - H&P: Meds Aspirin [Lo-Dose Aspirin EC] 81 mg PO HS 10/20/17 [History] Atorvastatin Calcium [Lipitor] 80 mg PO HS 10/20/17 [History] Cholecalciferol (Vitamin D3) [Vitamin D3] 2,000 unit PO DAILY 10/20/17 [History] Nitroglycerin [Nitrostat] 0.4 mg SL Q5M PRN 05/04/18 [History] Pyridoxine (B-6) [Vitamin B-6] 50 mg PO DAILY #30 tablet 05/04/18 [Rx] Levothyroxine [Synthroid] 75 mcg PO QAM 07/02/18 [History] Metoprolol XL (24 HR) Succ [Toprol XL] 12.5 mg PO HS 07/30/18 [History] Allergy/AdvReac Type Severity Reaction Status Date / Time No Known Allergies Allergy Verified 07/30/18 12:34 All Systems PM: A 10-system review of systems was performed and is negative for pertinent findings except as documented above in the HPI. - Constitutional Constitutional: as per HPI - EENT Eyes: as per HPI Ears: as per HPI Nose, mouth and throat: as per HPI - Cardiovascular Cardiovascular ROS IM: as per HPI - Respiratory Respiratory: as per HPI - Gastrointestinal Gastrointestinal: as per HPI - Genitourinary Genitourinary: as per HPI - Musculoskeletal Musculoskeletal ROS IM: as per HPI - Integumentary Integumentary IM: as per HPI - Neurological Neurological ROS: as per HPI - Hematologic/Lymphatic Hematologic/Lymphatic: as per HPI - Constitutional Vitals: Temp Pulse Resp BP Pulse Ox 98.3 F 73 15 121/70 98 07/30/18 12:57 07/30/18 12:57 07/30/18 12:57 07/30/18 12:57 07/30/18 12:57 General appearance: Present: A&O X 3, pleasant, no acute distress Exam: See below - Head Head exam: Present: atraumatic, normocephalic - Eye Eye exam: Present: PERRL, sclera anicteric. Absent: conjuntiva pink (clinically pale looking) Pupils: Present: PERRL - Neck Neck exam general surgery: Present: supple, trachea midline. Absent: lymphadenopathy - Respiratory Respiratory exam: Present: CTAB. Absent: accessory muscle use, rales, rhonchi, wheezes - Cardiovascular Cardiovascular exam: Present: RRR, +S1, +S2. Absent: diastolic murmur, gallop, rubs, systolic murmur - GI/Abdominal GI/Abdominal exam: Present: normal bowel sounds, soft, no peritoneal signs. Absent: distended, tenderness - Extremities Exam Extremities exam: Present: warm, radial pulses palpable and symmetrical. Absent: calf tenderness, cyanotic, pedal edema - Neurological Exam Neurological exam: Present: CN II-XII intact, oriented X3, no focal deficits. Absent: pronater drift, facial droop, speech deficit - Skin Skin exam: Present: dry, intact Internal Med - H&P Results - Labs CBC & Chem 7: 07/30/18 11:09 07/30/18 11:09 Labs: Short CBC 07/30/18 Range/Units 11:09 WBC 3.4 L (4.3-11.1) K/mcL Hgb 5.9 L* (11.5-15.4) g/dL Hct 18.0 L (35.3-44.9) % Plt Count 185 (140-400) K/mcL Neutrophils # 1.4 L (1.6-8.9) K/mcL BMP 07/30/18 11:09 Sodium 139 Potassium 4.2 Chloride 109 H Carbon Dioxide 25 BUN 11 Creatinine 0.67 Glucose 95 Calcium 8.8 Cardiac Enzymes 07/30/18 Range/Units 11:09 Troponin I < 0.03 (< 0.04) ng/mL Liver Function 07/30/18 Range/Units 11:09 Total Bilirubin 1.8 H (0.3-1.0) mg/dL AST 19 (13-39) Units/L ALT 19 (7-52) Units/L Alkaline Phosphatase 80 (34-104) Units/L Albumin 3.9 (3.5-5.7) g/dL - Impressions ITS Impressions Chest X-Ray 07/30/18 10:12 IMPRESSION: Emphysema without acute cardiopulmonary process. D/ / Scott Rawls MD / Scott Rawls MD Interpreting Provider: Scott Rawls MD - Assessment and plan (1) Anemia Current Visit: Yes Status: Acute Assessment and plan: Patient with suspected MDS, following up with oncology, unable to get erythropoietin due to insurance issues Patient has had multiple episodes of anemia in the past requiring transfusion This time, she presents with dizziness and fatigue and hemoglobin is 5.9. She is currently hemodynamically stable. Colonoscopy done in 2014 showed diverticulosis in the sigmoid and descending colon, and polyps that where resected. EGD done in June 2015 was unremarkable for any evidence of bleeding, no gross lesions were noted in the entire esophagus stomach or duodenum. She also had a capsular endoscopy which was done in this facility and was reported as a normal study. It was on 07/04/2015. FOBT is positive this time Surgery has been consulted for possible endoscopy NPO except medications and clear liquid diet Transfused 2 units of blood Repeat hemoglobin p.m. every 12 hours Hold home aspirin and hold her metoprolol. Qualifiers: Anemia type: other cause Other causes of anemia: other cause, not classified Qualified Code(s): D64.89 - Other specified anemias (2) GI bleed Current Visit: Yes Status: Suspected Assessment and plan: Suspected Prior endoscopies in 2014-EGD/Colonosocpy and Capsule endoscopy were unremarkable for source of bleed Qualifiers: GI bleed type/associated pathology: unspecified gastrointestinal hemorrhage type Qualified Code(s): K92.2 - Gastrointestinal hemorrhage, unspecified (3) HLD (hyperlipidemia) Current Visit: Yes Status: Chronic Assessment and plan: continue home meds Qualifiers: Hyperlipidemia type: unspecified Qualified Code(s): E78.5 - Hyperlipidemia, unspecified (4) HTN (hypertension) Current Visit: Yes Status: Chronic Assessment and plan: Hold home metoprolol for now Qualifiers: Hypertension type: essential hypertension Qualified Code(s): I10 - Essential (primary) hypertension (5) Myelodysplasia (myelodysplastic syndrome) Current Visit: Yes Status: Chronic Assessment and plan: Per Oncology Most recently discharged oncology 07/13/2018 Follow up with Oncology as out-patient Continue Pyridoxine (6) Tobacco abuse Current Visit: Yes Status: Chronic Assessment and plan: Encouraged cessation Declined NRT - Time Spent With Patient Total time spent is greater than 50% in coordination of care (as documented) at patient's floor/unit and/or counseling patient:
[2018-07-30 14:15] LABS: Bilirubin,Urine Negative (Negative); Blood,Urine Negative (Negative); Clarity,Urine Clear (Clear); Color,Urine Yellow (Yellow); Glucose,Urine (UA) Normal (Normal); Ketones,Urine Negative (Negative); Leukocyte Esterase,Urine Negative (Negative); Nitrite,Urine Negative (Negative); Protein,Urine Negative (Neg-Trace); Specific Gravity,Urine < 1.005 (1.010-1.025); Urobilinogen,Urine Normal (Normal)
--- NOTE | 2018-07-30 16:45 | Electrocardiograph Report ---
[employer] Test Date: 2018-07-30 Pat Name: Karina Olguin Department: EXAM10 Room: 2A11 Gender: F Hat Marker: : 1950 Requested By: Zheng Hopkins Order Number: [id number] Reading MD: Mak Costa Measurements Intervals [place] Rate: 72 P: 49 MT: 131 QRS: 25 QRSD: 103 T: -1 QT: 409 QTc: 448 Interpretive Statements Sinus rhythm Low voltage, precordial leads Borderline T abnormalities, anterior leads Electronically Signed On 07-30-2018 16:43:55 EST by Mak Costa
--- NOTE | 2018-07-30 18:22 | General Surgery Consult Note ---
Date of Encounter: 07/30/18 Time of Encounter: 17:00 History of Present Illness Consult date: 07/30/18 Requesting physician: Rubio Cheng History of present illness: General Surgery - GI coverage 67-year-old female referred by Dr. Cheng for further evaluation and treatment of recurrent anemia. The patient has a known history of myelodysplastic disorder with recurring anemia requiring repeated hospitalization and transfusions. The patient describes most recent transfusion of 2 units packed red blood cells 07/03/18, after presenting to the emergency department with a hemoglobin of 4.4, hematocrit 13.6. The patient also describes are going EGD, colonoscopy, and capsule endoscopy by Dr Perales [facility], 06/2017. The patient reported no significant findings. Patient returns to the emergency department today with a hemoglobin of 5.9, hematocrit 18. The patient describes feeling somewhat weak and dizzy in the prior 24 hours consistent with this severe anemia. Additional past medical history: Hypertension, hyperlipidemia, and long-standing tobacco use - up to 1-1/2 packs a day for 45 years. Surgical history: Includes herniotomy for a meningioma, tubal ligation and D&C. Allergies: No known drug allergies Medications: Aspirin 81 mg by mouth every 6 hours per historical data dated 10/20/17 Atorvastatin 80 mg by mouth daily at bedtime per historical data dated 10/20/17 Cholecalciferol 2000 units by mouth daily per historical data dated 10/20/17 Nitroglycerin 0.4 mg sublingually every 5 minutes as needed for chest pain per historical detail 05/04/18 Pyridoxine 50 mg by mouth daily per historical data 05/04/18 Levothyroxine 75 g every morning per data from 11/02/17 Metoprolol 12.5 mg by mouth daily at bedtime per data 07/30/18. The patient denies any abdominal pain, nausea, vomiting, or diarrhea. Patient has detected no blood per rectum nor did noted any melena. Hemoccult positive stool is reported. On physical examination The patient appears older than her stated age but no acute distress Skin is warm without obvious jaundice Lungs are clear to auscultation; no obvious abdominal pain with deep inspiration Abdomen soft, nontender. No detected intra-abdominal masses or obvious he patosplenomegaly. No rebound. Normal bowel sounds. Impression: 67-year-old female with a known history of myelodysplastic disorder returns to [facility] with recurrent anemia, hemoglobin 5.9, hematocrit 18. She is presently undergoing transfusion. The patient describes a pending appointment with Dr Perales 08/09/2018. She expressed a preference to see him again and it may be possible to move that appointment to 08/02/2018. I have discussed this extensively with the patient and and will honor her preference. The patient is aware that if the GI blood losses increase her become much more severe, I will be available until Dr Perales is available to assume care. Recommendation: Transfuse 4 units of blood (packed red blood cells) rather than 2. Contact Dr Perales to see patient 08/02/2018. I will be available should the need arise. Call as needed. Past Med Surg Social Fam HX - Past Medical History Medical history: hypertension, thyroid disease, other Additional medical history: heart murmur. SMOKER. HIGH CHOLESTEROL. HYPOTHYROIDISM. ANEMIA. MDS Psychiatric history: depression - Past Surgical History Surgical History: cataract Additional surgical history: BRAIN SURGERY. TUBAL LIGATION. D & C - Social History Smoking Status: Current every day smoker Packs per day: 1/2 Smokeless Tobacco Status: No Alcohol use: none Drug use: none - Family History Mother History Unknown: Yes Name: Joi Johnson Age: 79 Family Member Ethnicity: Non- Living Status: Age at : 79 Cause of : Widespread cancer Hx Family Cardiac Disorders: No Hx Family Respiratory Disorders: No Hx Family Cancer: Yes Hx Family GI Disorders: No Hx Family Genitourinary Disorders: No Hx Family Endocrine Disorder: Yes (diabetes) Hx Family Musculoskeletal Disorders: No Hx Family Neuromuscular Disorders: No Hx Family Neurologic Disorders: No Hx Family HEENT Disorders: No Hx Family Autoimmune Disorders: No Hx Family Reproductive Disorders: Yes (71 full hysterectomy) Hx Family Psychosocial Disorders: No Hx Family Medical Disorders: No Medications and Allergies Aspirin [Lo-Dose Aspirin EC] 81 mg PO HS 10/20/17 [History] Atorvastatin Calcium [Lipitor] 80 mg PO HS 10/20/17 [History] Cholecalciferol (Vitamin D3) [Vitamin D3] 2,000 unit PO DAILY 10/20/17 [History] Nitroglycerin [Nitrostat] 0.4 mg SL Q5M PRN 05/04/18 [History] Pyridoxine (B-6) [Vitamin B-6] 50 mg PO DAILY #30 tablet 05/04/18 [Rx] Levothyroxine [Synthroid] 75 mcg PO QAM 07/02/18 [History] Metoprolol XL (24 HR) Succ [Toprol XL] 12.5 mg PO HS 07/30/18 [History] Allergy/AdvReac Type Severity Reaction Status Date / Time No Known Allergies Allergy Verified 07/30/18 12:34 Review of Systems All systems PM: The remainder of the systems were reviewed and are negative General Surgery Exam Initial Vital Signs Temp Pulse Resp BP Pulse Ox 99.6 F 76 16 102/57 100 07/30/18 10:04 07/30/18 10:04 07/30/18 10:04 07/30/18 10:04 07/30/18 10:04 Exam Initial Vital Signs Temp Pulse Resp BP Pulse Ox 99.6 F 76 16 102/57 100 07/30/18 10:04 07/30/18 10:04 07/30/18 10:04 07/30/18 10:04 07/30/18 10:04 Results - Labs 07/30/18 11:09 07/30/18 11:09 Abnormal lab results WBC 3.4 K/mcL (4.3-11.1) L 07/30/18 11:09 RBC 1.78 M/mcL (3.82-4.97) L 07/30/18 11:09 Hgb 5.9 g/dL (11.5-15.4) L* 07/30/18 11:09 Hct 18.0 % (35.3-44.9) L 07/30/18 11:09 MCV 101.1 fL (83.0-100.0) H D 07/30/18 11:09 RDW 23.0 % (11.5-14.5) H 07/30/18 11:09 Neutrophils # 1.4 K/mcL (1.6-8.9) L 07/30/18 11:09 Nucleated RBCs/100 WBC 0.6 /100 WBC (0) H 07/30/18 11:09 Anisocytosis 2+ (Not Present) A 07/30/18 11:09 Macrocytosis Present (Not Present) A 07/30/18 11:09 Chloride 109 mEq/L (98-107) H 07/30/18 11:09 Total Bilirubin 1.8 mg/dL (0.3-1.0) H 07/30/18 11:09 Ur Specific [place] < 1.005 (1.010-1.025) L 07/30/18 14:00 Stool Occult Bld Scrn Positive (Negative) A 07/30/18 11:02 Diabetes panel 07/30/18 Range/Units 11:09 Sodium 139 (136-145) mEq/L Potassium 4.2 (3.5-5.1) mEq/L Chloride 109 H (98-107) mEq/L Carbon Dioxide 25 (23-29) mEq/L BUN 11 (8-23) mg/dL Creatinine 0.67 (0.60-1.20) mg/dL Glucose 95 (70-105) mg/dL Calcium 8.8 (8.6-10.3) mg/dL AST 19 (13-39) Units/L ALT 19 (7-52) Units/L Alkaline Phosphatase 80 (34-104) Units/L Albumin 3.9 (3.5-5.7) g/dL Calcium panel 07/30/18 Range/Units 11:09 Calcium 8.8 (8.6-10.3) mg/dL Albumin 3.9 (3.5-5.7) g/dL Pituitary panel 07/30/18 Range/Units 11:09 Sodium 139 (136-145) mEq/L Potassium 4.2 (3.5-5.1) mEq/L Chloride 109 H (98-107) mEq/L Carbon Dioxide 25 (23-29) mEq/L BUN 11 (8-23) mg/dL Creatinine 0.67 (0.60-1.20) mg/dL Glucose 95 (70-105) mg/dL Calcium 8.8 (8.6-10.3) mg/dL Adrenal panel 07/30/18 Range/Units 11:09 Sodium 139 (136-145) mEq/L Potassium 4.2 (3.5-5.1) mEq/L Chloride 109 H (98-107) mEq/L Carbon Dioxide 25 (23-29) mEq/L BUN 11 (8-23) mg/dL Creatinine 0.67 (0.60-1.20) mg/dL Glucose 95 (70-105) mg/dL Calcium 8.8 (8.6-10.3) mg/dL Total Bilirubin 1.8 H (0.3-1.0) mg/dL AST 19 (13-39) Units/L ALT 19 (7-52) Units/L Alkaline Phosphatase 80 (34-104) Units/L Albumin 3.9 (3.5-5.7) g/dL All other labs normal. Consult Discharge Plan - Plan Referrals: NONE,PCP [Primary Care Provider] -
[2018-07-30] MEDS ORDERED: Metoprolol XL (24 HR) Succ 25 MG TAB.ER.24H PO SCH (21:00)
[2018-07-30 21:41] LABS: Hematocrit 24.1 % (35.3-44.9)
[2018-07-30 21:45] LABS: Hemoglobin 7.9 g/dL (11.5-15.4)
[2018-07-30 21:48] LABS: INR 1.2; Prothrombin Time 13.2 Seconds (9.4-12.1)
[2018-07-31 05:30] LABS: Basophils # 0.1 K/mcL (0.0-0.2); Basophils % 2.4 %; Eosinophils # 0.3 K/mcL (0.0-0.6); Eosinophils % 6.2 %; Hematocrit 25.3 % (35.3-44.9); Hemoglobin 8.2 g/dL (11.5-15.4); Immature Granulocytes % 0.5 % (0-4); Lymphocytes # 1.9 K/mcL (0.6-4.6); Lymphocytes % 44.5 %; Mean Corpuscular HGB Conc 32.4 g/dL (31.6-35.5); Mean Corpuscular Hemoglobin 31.5 pg (28.0-33.3); Mean Corpuscular Volume 97.3 fL (83.0-100.0); Mean Platelet Volume 11.5 fL (9.4-12.4); Monocytes # 0.3 K/mcL (0.0-1.3); Monocytes % 5.9 %; Neutrophils # 1.7 K/mcL (1.6-8.9); Nucleated Red Blood Cells 0.5 /100 WBC (0); Platelet Count 157 K/mcL (140-400); Red Cell Distribution Width 19.8 % (11.5-14.5); Segmented Neutrophils % 40.5 %
[2018-07-31 05:57] LABS: BUN/Creatinine Ratio 14 (6-26); Blood Urea Nitrogen 10 mg/dL (8-23); Carbon Dioxide 24 mEq/L (23-29); Chloride 111 mEq/L (98-107); Glucose 87 mg/dL (70-105); Osmolality,Calculated 290 (280-300); Sodium 141 mEq/L (136-145); eGFR For Non-African Americans > 60 (> 60)
[2018-07-31] MEDS ORDERED: Pyridoxine (B-6) 50 MG TABLET PO SCH (09:00)
[2018-07-31] MEDS ORDERED: Cholecalciferol (D-3) 1,000 UNIT TABLET PO SCH (09:00)
[2018-07-31] MEDS ORDERED: 0.9 % Sodium Chloride 250 ML ONE ×2 (10:18→13:49)
--- NOTE | 2018-07-31 11:25 | Discharge Summary ---
- NOTES TO OUTPATIENT PROVIDER Notes to Outpatient Provider: She was known history of MDS was admitted for symptomatic anemia. Hb 5.9 with FOBT +ve. Transfused 2U with appropriate Hb response to 8.2. Surgery evaluated the patient and was recommended to follow up with Dr. Perales earlier than her scheduled date. Additional 2U of pRBC was given along with the script for CBC on Thursday. ASA to remain on hold till GI eval. Orders not resulted at time of discharge: Pending orders 07/30/18 11:09 Hold Sample For Possible T&C [BBK] Stat Red Blood Cells [BBK] Stat Type and Screen [BBK] Stat Date of Encounter: 07/31/18 Time of Encounter: 08:00 - Discharge Diagnosis (1) Anemia Priority: Primary Status: Acute Qualifiers: Anemia type: other cause Other causes of anemia: other cause, not classified Qualified Code(s): D64.89 - Other specified anemias (2) Myelodysplasia (myelodysplastic syndrome) Priority: Secondary Status: Chronic (3) HTN (hypertension) Priority: Secondary Status: Chronic Qualifiers: Hypertension type: essential hypertension Qualified Code(s): I10 - Essential (primary) hypertension (4) HLD (hyperlipidemia) Priority: Secondary Status: Chronic Qualifiers: Hyperlipidemia type: unspecified Qualified Code(s): E78.5 - Hyperlipidemia, unspecified (5) Tobacco abuse Priority: Secondary Status: Chronic (6) GI bleed Priority: Secondary Status: Suspected Qualifiers: GI bleed type/associated pathology: unspecified gastrointestinal hemorrhage type Qualified Code(s): K92.2 - Gastrointestinal hemorrhage, unspecified Hospital course: Ms. Olguin is a 67 year old female with known history of MDS requiring frequent transfusion was admitted for symptomatic anemia. Hb 5.9 with FOBT +ve. Transfused 2U with appropriate Hb response to 8.2 and remained hemodynamically stable throughout her stay. Surgery evaluated the patient and was recommended to follow up with Dr. Perales earlier than her scheduled date. She was expressed her clear wish to return home wth close GI follow-up. Additional 2U of pRBC was given along with the script for CBC on Thursday. ASA to remain on hold till GI eval. Discharge discussed with: patient, family, nurse - Time Spent with Patient Total time spent providing and/or coordinating discharge services: 32 mins - Discharge Medications Home Medications: Atorvastatin Calcium [Lipitor] 80 mg PO HS 10/20/17 [History] Cholecalciferol (Vitamin D3) [Vitamin D3] 2,000 unit PO DAILY 10/20/17 [History] Nitroglycerin [Nitrostat] 0.4 mg SL Q5M PRN 05/04/18 [History] Pyridoxine (B-6) [Vitamin B-6] 50 mg PO DAILY #30 tablet 05/04/18 [Rx] Levothyroxine [Synthroid] 75 mcg PO QAM 07/02/18 [History] Metoprolol XL (24 HR) Succ [Toprol Xl] 12.5 mg PO HS 07/30/18 [History] Allergies/Adverse Reactions: Allergy/AdvReac Type Severity Reaction Status Date / Time No Known Allergies Allergy Verified 07/30/18 12:34 Date of admission: 07/30/18 12:06 Primary care physician: PCP NONE Consults: 07/30/18 12:57 Consult to Surgery [CONS] Routine Consulting Provider: Surgery [facility] Reason for Consult: acute on chronic anemia, with positive occult blood Call Completed: Yes - Constitutional Vitals: Temp Pulse Resp BP Pulse Ox 98.2 F 70 16 103/52 97 07/31/18 11:02 07/31/18 11:02 07/31/18 11:02 07/31/18 11:02 07/31/18 11:02 General appearance: Present: A&O X 3, pleasant, no acute distress Exam: General: Alert and oriented, not in acute distress. Cardiovascular:Normal S1 & S2, No JVD. Pulse regular. Lungs: clear to auscultation, no wheezes/rales Abdomen:Soft, non-tender, no rigidity. Extremities:No deformity or swelling Neurological:Normal cognition and motor skills. Non-focal - Patient Status Disposition: Home, Self-Care Condition: Fair Functional capacity at discharge: independent ambulation Overall status at discharge: patient is progressing back to baseline - Discharge Instructions Instructions: Anemia (GEN), Chronic Hypertension (DC) Follow Up With: NONE,PCP [Primary Care Provider] - Chuck Perales MD [Partnered Physician] - Additional Instructions: Follow up on 08/02/2018 H&H on Thursday - Diet and Activity Activity: resume usual activities as tolerated Diet: advance to your usual diet
[2018-07-31 16:20] VITALS: BP 131/59
== END 2018-07-31 17:16 | disposition home or self-care (01) ==
LOC: EMEROOARM 09:55 → 2ANU 09:55 → SUATTDRO 12:06 → 2ANU 12:26
PROVIDERS: ADMIT Internal Medicine; ATTEND Internal Medicine

== ENCOUNTER 2018-10-14 10:13 | Observation (INO) ==
--- NOTE | 2018-10-14 10:41 | Anesthesia Evaluation PreOp ---
Date of Encounter: 10/14/18 Time of Encounter: 10:38 - Past History Planned Operation: push enteroscopy Cardiac History: HTN, Hyperlipidemia, Other (anemia Hgb 5.1 and now s/p 2 units PRBC, carotid stenosis) Pulmonary History: Smoker (1 ppd) FR[employer]CH LECT[employer]ER History: Denies Any Significant HX Other Medical History: Thyroid (hypo) Anesthesia History: No Prior Anesthetic Complications, Past Anesthesia : No Alcohol Use: none Drug use: none Medications and Allergies Atorvastatin Calcium [Lipitor] 80 mg PO HS 10/20/17 [History] Cholecalciferol (Vitamin D3) [Vitamin D3] 2,000 unit PO DAILY 10/20/17 [History] Nitroglycerin [Nitrostat] 0.4 mg SL Q5M PRN 05/04/18 [History] Pyridoxine (B-6) [Vitamin B-6] 50 mg PO DAILY #30 tablet 05/04/18 [Rx] Levothyroxine [Synthroid] 75 mcg PO QAM 07/02/18 [History] Metoprolol XL (24 HR) Succ [Toprol Xl] 12.5 mg PO HS 07/30/18 [History] Allergy/AdvReac Type Severity Reaction Status Date / Time No Known Allergies Allergy Verified 10/08/18 08:57 - Meds/Allergy Pre-op Review Medications Reviewed: Yes Allergies Reviewed: Yes Beta Blockers on Current Med List: Yes (metoprolol) If Beta Blockers taken, Date/Time (Last Dose taken): 10/13/2018 Anesthesia Results - Labs Laboratory Tests 10/08/18 08:49 WBC 2.7 L Hgb 5.1 L* Hct 15.7 L Plt Count 164 - Imaging EKG: report reviewed Additional studies: echo 09/2018 Impressions: LVEF 70%. Normal LV chamber size, wall thickness and function. Moderate left ventricular diastolic dysfunction. Normal right ventricular structure and function. No evidence of pulmonary hypertension. No significant valvular dysfunction. stress test 09/2017 Impression: Perfusion imaging was negative for ischemia or infarct. Pharmacologic stress ECG is non diagnostic for ischemia due to baseline non-specific ST and T changes. Gated EF > 70%. Carotid U/S Impressions: Findings: Right proximal ICA has a severe, 60-79% stenosis. Findings: Left distal ICA has a severe, 60-79% stenosis. Anesthesia Exam BP 115/46 HR 84 RR 18 spO2 99% Weight: 64 kg NPO (# of Hours): > 8 hr - HEENT Pupil (Motor): Pupils equal Mallampati: II Teeth: Edentulous - [employer]ER LOC: Oriented [employer]ER Motor: Normal RUE, Normal LUE, Normal RLE, Normal LLE, Normal Face [employer]ER Sensory: Normal: RUE, LUE, RLE, LLE, Face - Cardiac Rhythm: Regular Murmur: None - Pulmonary Breath Sounds: bilateral Clear Respiratory Effort: Symmetrical Anesthesia Assess/Plan ASA Score: 3 Level of consciousness: Cooperative, Oriented Anesthetic Plan: MAC Monitoring Plan: Standard Monitors Recovery Plan: PACU
[2018-10-14] MEDS: 0.9 % Sodium Chloride 1,000 ML IVC SCH (11:20)
[2018-10-14] MEDS ORDERED: *HR* EPINEPHrine 1 MG/10 ML SYRINGE INTRATRACH PRN (11:47)
[2018-10-14] MEDS ORDERED: *HR* EPINEPHrine 1 MG/10 ML SYRINGE ONE (11:47)
--- NOTE | 2018-10-14 12:32 | Anesthesia Evaluation Post Op ---
Date of Encounter: 10/14/18 Time of Encounter: 14:54 - Discharge PostOp Status: Discharge Patient to home (Patient's vital signs have been reviewed. Patient is stable postoperatively and has adequately recovered from anesthesia. Patient is determined to have stable airway patency and respiratory function including respiratory rate and oxygen saturation. Patient has a stable heart rate, blood pressure and adequate hydration. Patients mental status is acceptable. Patients temperature is appropriate. Pain and nausea are adequately controlled.)
[2018-10-14 13:33] LABS: Basophils % 0.3 %; Eosinophils # 0.1 K/mcL (0.0-0.6); Eosinophils % 1.6 %; Hematocrit 22.5 % (35.3-44.9); Hemoglobin 7.2 g/dL (11.5-15.4); Immature Granulocytes % 0.6 % (0-4); Lymphocytes # 0.9 K/mcL (0.6-4.6); Lymphocytes % 14.6 %; Mean Platelet Volume 12.9 fL (9.4-12.4); Monocytes # 0.2 K/mcL (0.0-1.3); Monocytes % 2.7 %; Neutrophils # 5.1 K/mcL (1.6-8.9); Nucleated Red Blood Cells 0.3 /100 WBC (0); Platelet Count 163 K/mcL (140-400); Red Blood Count 2.25 M/mcL (3.82-4.97); Red Cell Distribution Width 20.9 % (11.5-14.5); Segmented Neutrophils % 80.2 %
[2018-10-14] MEDS ORDERED: Naloxone 0.4 MG/ML INJ IVP PRN (16:02)
--- NOTE | 2018-10-14 16:06 | Internal Med History&Physical ---
Date of Encounter: 10/14/18 Time of Encounter: 15:10 Internal Medicine - H&P: HPI Chief complaint: anemia, s/p duodenal polyp removal Admitted From: Direct Admit History of present illness: Ms. Olguin is a 68 year old female with past medical history of hypothyroidism, myelodysplastic syndrome, hypertension, was directly admitted to the floor post EGD/small bowel enteroscopy. Patient has long-standing history of transfusion dependent anemia. Patient reports that she had capsule endoscopy previously which showed multiple AVMs and was scheduled for EGD/small bowel enteroscopy today. During the procedure today, she was found to have single duodenal, sessile polyp in the 3rd portion of duodenum with active oozing. Removed using a hot snare and 4 hemostatic clips were placed. Also injected with epinephrine. Hb post-procedure was 7.2 and she was admitted for pRBC transfusion as well as post-procedural monitoring. Currently complains of bloatedness but otherwise no nausea/vomiting or abdominal pain. Denies chest pain, shortness of breath, palpitation, or lightheadedness. She has appointment with oncology tomorrow afternoon for Procrit infusion. On arrival to the floor, she was afebrile and hemodynamically stable. Past Med Surg Social Fam HX - Past Medical History Medical history: hyperlipidemia, hypertension, thyroid disease, other Additional medical history: heart murmur. SMOKER. HIGH CHOLESTEROL. HYPOTHYROIDISM. ANEMIA. diverticulosis. MDS Psychiatric history: depression - Past Surgical History Surgical History: cataract Additional surgical history: BRAIN SURGERY. TUBAL LIGATION. D & C. colonoscopy - egd - Social History Smoking Status: Never smoker Smokeless Tobacco Status: No Alcohol use: none Drug use: none - Family History Mother Family Member Ethnicity: Non- Living Status: Hx Family Cardiac Disorders: No Hx Family Respiratory Disorders: No Hx Family Cancer: Yes Hx Family GI Disorders: No Hx Family Endocrine Disorder: Yes (diabetes) Hx Family Neuromuscular Disorders: No Hx Family Neurologic Disorders: No Hx Family HEENT Disorders: No Hx Family Autoimmune Disorders: No Internal Medicine - H&P: Meds Atorvastatin Calcium [Lipitor] 80 mg PO HS 10/20/17 [History] Cholecalciferol (Vitamin D3) [Vitamin D3] 2,000 unit PO DAILY 10/20/17 [History] Nitroglycerin [Nitrostat] 0.4 mg SL Q5M PRN 05/04/18 [History] Pyridoxine (B-6) [Vitamin B-6] 50 mg PO DAILY #30 tablet 05/04/18 [Rx] Levothyroxine [Synthroid] 75 mcg PO QAM 07/02/18 [History] Metoprolol XL (24 HR) Succ [Toprol Xl] 12.5 mg PO HS 07/30/18 [History] 3 Allergy/AdvReac Type Severity Reaction Status Date / Time No Known Allergies Allergy Verified 10/08/18 08:57 All Systems PM: A 10-system review of systems was performed and is negative for pertinent findings except as documented above in the HPI. - Constitutional Vitals: Temp Pulse Resp BP Pulse Ox 97.8 F 88 16 105/43 97 10/14/18 12:22 10/14/18 12:22 10/14/18 12:22 10/14/18 12:22 10/14/18 12:22 Exam: General: Alert and oriented, not in acute distress. HEENT:EOMI, pupils equal, round and reactive. Cardiovascular:Normal S1 & S2, No JVD. Pulse regular. Lungs: clear to auscultation, no wheezes/rales Abdomen:Soft, non-tender, no rebound/guarding/rigidity Extremities:No deformity or swelling Neurological:Normal cognition and motor skills. Non-focal Skin:Normal color, no rash, no lesions. Pulses:Carotid and radial pulses normal +2. Rest of the physical exam is non contributory Internal Med - H&P Results - Labs CBC & Chem 7: 10/14/18 12:31 Labs: Short CBC 10/14/18 Range/Units 12:31 WBC 6.3 D (4.3-11.1) K/mcL Hgb 7.2 L D (11.5-15.4) g/dL Hct 22.5 L (35.3-44.9) % Plt Count 163 (140-400) K/mcL Neutrophils # 5.1 (1.6-8.9) K/mcL - Assessment and plan (1) GI bleed Current Visit: Yes Status: Acute Assessment and plan: Chronic history of transfusion-dependent anemia with myelodysplastic syndrome Underwent capsule endoscopy recently which reportedly showed mutiple AVMs had EGD/small bowel enterscopy today. 1 duodenal polyp in D3 s/p hot snare removal. 4 clips placed and EP injection as well Post-op Hb 7.2 transfuse 1U pRBC, monitor H&H Qualifiers: GI bleed type/associated pathology: unspecified gastrointestinal hemorrhage type Qualified Code(s): K92.2 - Gastrointestinal hemorrhage, unspecified (2) Hypothyroidism Current Visit: Yes Status: Chronic Assessment and plan: Resume home meds once reconciled Qualifiers: Hypothyroidism type: unspecified Qualified Code(s): E03.9 - Hypothyroidism, unspecified (3) HLD (hyperlipidemia) Current Visit: No Status: Chronic Assessment and plan: Resume home meds once reconciled Qualifiers: Hyperlipidemia type: unspecified Qualified Code(s): E78.5 - Hyperlipidemia, unspecified (4) HTN (hypertension) Current Visit: No Status: Chronic Assessment and plan: hold off on bb Qualifiers: Hypertension type: essential hypertension Qualified Code(s): I10 - Essential (primary) hypertension (5) Myelodysplasia (myelodysplastic syndrome) Current Visit: No Status: Chronic Assessment and plan: mx for anemia as above Resume home meds once reconciled (6) DVT prophylaxis Current Visit: Yes Status: Acute Assessment and plan: EPCD - Time Spent With Patient Total time spent is greater than 50% in coordination of care (as documented) at patient's floor/unit and/or counseling patient:
[2018-10-14] MEDS ORDERED: Lidocaine 2% Syringe 100 MG/5 ML IV ONE (16:11)
[2018-10-14] MEDS ORDERED: *HR* Propofol 500 MG/50 ML BOTTLE IVC ONE (16:11)
[2018-10-14] MEDS ORDERED: 0.9 % Sodium Chloride 500 ML ONE (19:39)
[2018-10-15 01:28] LABS: Hematocrit 21.5 % (35.3-44.9); Hemoglobin 7.1 g/dL (11.5-15.4)
[2018-10-15] MEDS: 0.9 % Sodium Chloride 1,000 ML IVC SCH (04:47)
[2018-10-15 05:46] LABS: Hematocrit 21.6 % (35.3-44.9); Hemoglobin 7.3 g/dL (11.5-15.4)
--- NOTE | 2018-10-15 10:27 | Discharge Summary ---
- NOTES TO OUTPATIENT PROVIDER Notes to Outpatient Provider: Pt with known MDS, hypothyrodism, was directly admitted after EGD/small bowel enteroscopy during wich she had a removal of duodenal polyp, hemostatic clip placement, and EP injection. Received 2U pRBC and discharged home after overnight monitoring. To follow up with GI and h ematology as scheduled. Orders not resulted at time of discharge: Pending orders 10/14/18 12:02 Surgical Pathology [PTH] Routine 10/14/18 16:15 Red Blood Cells [BBK] Stat Type and Screen [BBK] Stat Date of Encounter: 10/15/18 Time of Encounter: 08:30 - Discharge Diagnosis (1) GI bleed Priority: Primary Status: Acute Qualifiers: GI bleed type/associated pathology: unspecified gastrointestinal hemorrhage type Qualified Code(s): K92.2 - Gastrointestinal hemorrhage, unspecified (2) Hypothyroidism Priority: Secondary Status: Chronic Qualifiers: Hypothyroidism type: unspecified Qualified Code(s): E03.9 - Hypothyroidism, unspecified (3) HLD (hyperlipidemia) Priority: Secondary Status: Chronic Qualifiers: Hyperlipidemia type: unspecified Qualified Code(s): E78.5 - Hyperlipidemia, unspecified (4) HTN (hypertension) Priority: Secondary Status: Chronic Qualifiers: Hypertension type: essential hypertension Qualified Code(s): I10 - Essential (primary) hypertension (5) Myelodysplasia (myelodysplastic syndrome) Priority: Secondary Status: Chronic (6) DVT prophylaxis Priority: Secondary (c) Status: Acute Hospital course: Ms. Olguin is a 68 year old female with known MDS, hypothyrodism, who was directly admitted after EGD/small bowel enteroscopy during wich she had a removal of duodenal polyp, hemostatic clip placement, and EP injection. Received 2U pRBC and discharged home after overnight monitoring. To follow up with GI and hematology as scheduled. Discharge discussed with: patient, nurse - Time Spent with Patient Total time spent providing and/or coordinating discharge services: 23 mins - Discharge Medications Home Medications: Atorvastatin Calcium [Lipitor] 80 mg PO QPM 10/20/17 [History] Cholecalciferol (Vitamin D3) [Vitamin D3] 2,000 unit PO Q48H 10/20/17 [History] Nitroglycerin [Nitrostat] 0.4 mg SL Q5M PRN 05/04/18 [History] Pyridoxine (B-6) [Vitamin B-6] 50 mg PO DAILY #30 tablet 05/04/18 [Rx] Levothyroxine [Synthroid] 75 mcg PO DAILY 07/02/18 [History] Metoprolol XL (24 HR) Succ [Toprol Xl] 12.5 mg PO HS 07/30/18 [History] Allergies/Adverse Reactions: Allergy/AdvReac Type Severity Reaction Status Date / Time No Known Allergies Allergy Verified 10/15/18 08:45 Date of admission: 10/14/18 15:39 Primary care physician: Dennys Sabillon DO - Constitutional Vitals: Temp Pulse Resp BP Pulse Ox 98.2 F 72 15 91/51 96 10/15/18 10:19 10/15/18 10:19 10/15/18 10:19 10/15/18 10:19 10/15/18 10:19 Exam: General: Alert and oriented, not in acute distress. Cardiovascular:Normal S1 & S2, No JVD. Pulse regular. Lungs: clear to auscultation, no wheezes/rales Abdomen:Soft, non-tender, no rebound/guarding/rigidity Extremities:No deformity or swelling Neurological:Normal cognition and motor skills. Non-focal - Patient Status Disposition: Home, Self-Care Condition: Fair Functional capacity at discharge: independent ambulation Overall status at discharge: patient is back to baseline - Discharge Instructions Instructions: Hypothyroidism (DC), Anemia (GEN) Follow Up With: Dennys Sabillon DO [Primary Care Provider] - Additional Instructions: Follow up with GI and Hematology as scheduled - Diet and Activity Activity: resume usual activities as tolerated Diet: advance to your usual diet
[2018-10-15] MEDS ORDERED: 0.9 % Sodium Chloride 250 ML ONE (10:34)
[2018-10-15 11:45] VITALS: BP 107/62
[2018-10-15] MEDS ORDERED: Epoetin Alfa 40,000 UNIT/ML VIAL SQ ONE (14:51)
== END 2018-10-15 16:12 | disposition home or self-care (01) ==
LOC: ENDPAV 10:13 → 3ANU 10:13 → ENDPAV 14:54 → SUATTDRO 15:39
PROVIDERS: ADMIT Student in an Organized Health Care Education/Training Program; ATTEND Internal Medicine

== ENCOUNTER 2019-01-13 09:59 | Inpatient (IN) ==
[2019-01-13 11:11] LABS: Lymphocytes # 0.5 K/mcL (0.6-4.6); Mean Corpuscular HGB Conc 33.6 g/dL (31.6-35.5); Mean Corpuscular Hemoglobin 29.6 pg (28.0-33.3); Mean Corpuscular Volume 88.2 fL (83.0-100.0); Mean Platelet Volume 14.1 fL (9.4-12.4); Red Blood Count 1.69 M/mcL (3.82-4.97); Red Cell Distribution Width 14.2 % (11.5-14.5)
[2019-01-13 11:17] LABS: Hematocrit 14.9 % (35.3-44.9); Platelet Count 26 K/mcL (140-400)
[2019-01-13 11:20] LABS: Albumin 2.7 g/dL (3.5-5.7); Albumin/Globulin Ratio 0.8 (1.1-2.2); Calcium 7.7 mg/dL (8.6-10.3); Globulin 3.2 g/dL (2.4-3.5); INR 1.3; Potassium 3.6 mEq/L (3.5-5.1); Prothrombin Time 15.1 Seconds (9.4-12.1); Total Protein 5.9 g/dL (6.4-8.9)
[2019-01-13 11:23] LABS: Activated Partial Thrombo Time 30.9 Seconds (26.0-36.0)
[2019-01-13 11:36] LABS: Platelet Estimate Marked Decrease (Normal)
[2019-01-13 11:37] LABS: Anisocytosis 1+ (Not Present); Large Platelets Present (Not Present); Poikilocytosis 1+ (Not Present)
--- NOTE | 2019-01-13 11:48 | Emergency Department Note ---
Disposition Clinical Impression: Myelodysplasia (myelodysplastic syndrome), Anemia Disposition: Admitted As Inpatient Condition: Fair Referrals: Dennys Sabillon DO [Primary Care Provider] - Time of Disposition: 11:48 General Adult HPI - General Chief complaint: ED Recheck/Abnormal Lab/Rx Stated complaint: low Hgb Time Seen by Provider: 01/13/19 10:18 Source: patient, family Limitations: no limitations - History of Present Illness HPI Narrative: Patient is a 68-year-old female with history of myelodysplasia disorder that presents to the emergency department with chief complaint of anemia. Patient reports that they checked her hemoglobin today was 4.7. The patient states she is feeling weak and tired and run down. The patient states on 426 she had a hemoglobin of 6.7. The patient has been transfused in the last week with 2 units. The patient denies fever. The patient was sent to the emergency department by her oncologist for transfusion. Pain Scale: 0 - Related Data Home Medications Medication Instructions Recorded Confirmed Atorvastatin Calcium [Lipitor] 80 mg PO QPM 10/20/17 12/20/18 Cholecalciferol (Vitamin D3) 2,000 unit PO Q48H 10/20/17 12/20/18 [Vitamin D3] Nitroglycerin [Nitrostat] 0.4 mg SL Q5M PRN 05/04/18 12/20/18 Levothyroxine [Synthroid] 75 mcg PO DAILY 07/02/18 12/20/18 Metoprolol XL (24 HR) Succ [Toprol 12.5 mg PO HS 07/30/18 12/20/18 Xl] Previous Rx's Medication Instructions Recorded Pyridoxine (B-6) [Vitamin B-6] 50 mg PO DAILY #30 tablet 05/04/18 Ciprofloxacin [Cipro] 500 mg PO BID #10 tablet 12/27/18 Magic Mouthwash [Magic Mouthwash 10 ml PO QID PRN #240 ml 01/11/19 BLM] Allergies Allergy/AdvReac Type Severity Reaction Status Date / Time No Known Allergies Allergy Verified 12/20/18 13:36 All systems ED: reviewed and negative except as stated. Past Medical History - Past Medical History Attestation: Yes The following information was validated with the patient. 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 Head: Normocephalic/atraumatic Eyes:PERRLA, EOMI, no conjunctivitis Nares: Without d/c. Ears: No erythema or d/c noted. Oralpharnyx: P&MMM noted, Neck: Supple, no JVD or DIRECTOR OF INFECTION CONTROL noted. Cardovascular: regular rate and rhythm without murmur, brisk capillary refill, no peripheral edema. Lungs: Clear to ascultation bilaterally, non-labored Abd: Soft nontender, Non Distended, no guarding, no rebound. : Defered Extremities: moves all extremities equally Neuro: AOx3, no obvious gross neuro deficit Psych: Normal Affect Derm: No rash noted there is pallor and mild icteric nature to the skin - General Limitations: no limitations General appearance: alert, in no apparent distress Course Vital Signs Temperature 98.4 F 01/13/19 10:01 Pulse Rate 124 01/13/19 10:01 Respiratory Rate 18 01/13/19 10:01 Blood Pressure 99/63 01/13/19 10:01 O2 Sat by Pulse Oximetry 96 01/13/19 10:01 Temperature 98.4 F 01/13/19 10:15 Pulse Rate 115 01/13/19 11:09 Respiratory Rate 18 01/13/19 11:09 Blood Pressure 105/47 01/13/19 11:09 O2 Sat by Pulse Oximetry 100 01/13/19 11:09 Oxygen Delivery Oxygen Delivery Room Air Medical Decision Making - Lab Data Result diagrams: 01/13/19 10:26 01/13/19 10:26 Lab Results 01/13/19 01/13/19 01/13/19 Range/Units 10:26 10:26 10:26 WBC 0.5 L* (4.3-11.1) K/mcL RBC 1.69 L (3.82-4.97) M/mcL Hgb 5.0 L* (11.5-15.4) g/dL Hct 14.9 L* (35.3-44.9) % MCV 88.2 (83.0-100.0) fL MCH 29.6 (28.0-33.3) pg MCHC 33.6 (31.6-35.5) g/dL RDW 14.2 (11.5-14.5) % Plt Count 26 L* (140-400) K/mcL MPV 14.1 H (9.4-12.4) fL Immature Gran % 0.0 (0-4) % Seg Neutrophils % 4.0 % Lymphocytes % 92.0 % Monocytes % 4.0 % Eosinophils % 0.0 % Basophils % 0.0 % Neutrophils # 0.0 L (1.6-8.9) K/mcL Lymphocytes # 0.5 L (0.6-4.6) K/mcL Monocytes # 0.0 (0.0-1.3) K/mcL Eosinophils # 0.0 (0.0-0.6) K/mcL Basophils # 0.0 (0.0-0.2) K/mcL Platelet Estimate Marked Decrease L (Normal) Large Platelets Present A (Not Present) Poikilocytosis 1+ A (Not Present) Anisocytosis 1+ A (Not Present) PT 15.1 H (9.4-12.1) Seconds INR 1.3 APTT 30.9 (26.0-36.0) Seconds Sodium (136-145) mEq/L Potassium (3.5-5.1) mEq/L Chloride (98-107) mEq/L Carbon Dioxide (23-29) mEq/L BUN (8-23) mg/dL Creatinine (0.60-1.20) mg/dL Est GFR ( Amer) (> 60) Est GFR (Non-Af Amer) (> 60) BUN/Creatinine Ratio (6-26) Glucose (70-105) mg/dL Calculated Osmolality (280-300) Calcium (8.6-10.3) mg/dL Total Bilirubin (0.3-1.0) mg/dL AST (13-39) Units/L ALT (7-52) Units/L Alkaline Phosphatase (34-104) Units/L Serum Total Protein (6.4-8.9) g/dL Albumin (3.5-5.7) g/dL Globulin (2.4-3.5) g/dL Albumin/Globulin Ratio (1.1-2.2) Blood Type O POSITIVE Antibody Screen POSITIVE 01/13/19 Range/Units 10:26 WBC (4.3-11.1) K/mcL RBC (3.82-4.97) M/mcL Hgb (11.5-15.4) g/dL Hct (35.3-44.9) % MCV (83.0-100.0) fL MCH (28.0-33.3) pg MCHC (31.6-35.5) g/dL RDW (11.5-14.5) % Plt Count (140-400) K/mcL MPV (9.4-12.4) fL Immature Gran % (0-4) % Seg Neutrophils % % Lymphocytes % % Monocytes % % Eosinophils % % Basophils % % Neutrophils # (1.6-8.9) K/mcL Lymphocytes # (0.6-4.6) K/mcL Monocytes # (0.0-1.3) K/mcL Eosinophils # (0.0-0.6) K/mcL Basophils # (0.0-0.2) K/mcL Platelet Estimate (Normal) Large Platelets (Not Present) Poikilocytosis (Not Present) Anisocytosis (Not Present) PT (9.4-12.1) Seconds INR APTT (26.0-36.0) Seconds Sodium 134 L (136-145) mEq/L Potassium 3.6 (3.5-5.1) mEq/L Chloride 103 (98-107) mEq/L Carbon Dioxide 19 L (23-29) mEq/L BUN 41 H (8-23) mg/dL Creatinine 1.25 H (0.60-1.20) mg/dL Est GFR ( Amer) 52 L (> 60) Est GFR (Non-Af Amer) 43 L (> 60) BUN/Creatinine Ratio 33 H (6-26) Glucose 238 H (70-105) mg/dL Calculated Osmolality 296 (280-300) Calcium 7.7 L (8.6-10.3) mg/dL Total Bilirubin 1.0 (0.3-1.0) mg/dL AST 38 (13-39) Units/L ALT 40 (7-52) Units/L Alkaline Phosphatase 60 (34-104) Units/L Serum Total Protein 5.9 L (6.4-8.9) g/dL Albumin 2.7 L (3.5-5.7) g/dL Globulin 3.2 (2.4-3.5) g/dL Albumin/Globulin Ratio 0.8 L (1.1-2.2) Blood Type Antibody Screen
[2019-01-13 12:38] LABS: % Iron Saturation 34 % (15-50); Bilirubin,Direct 0.3 mg/dL (0.0-0.2); Bilirubin,Indirect 0.5 mg/dL (0.0-1.2); Bilirubin,Total 0.8 mg/dL (0.3-1.0); Iron 44 mcg/dL (50-170); Lactate Dehydrogenase 139 Units/L (140-271); Transferrin 92 mg/dL (203-362)
[2019-01-13 12:57] LABS: Ferritin > 1500 ng/mL (10-120)
--- NOTE | 2019-01-13 13:19 | Internal Med History&Physical ---
<Vince Frias - Last Filed: 01/13/19 15:55> Date of Encounter: 01/13/19 Time of Encounter: 14:12 Internal Medicine - H&P: HPI Chief complaint: Abnormal labs Admitted From: Emergency Dept Plans for Post Hospital Care: Home History of present illness: Ms. Olguin is a 68 year old female with PMH of HTN, HLD, MDS, former tobacco abuse, who follows up with [facility] and has had multiple admissions in the past for anemia, most recent admission 07/2018, when she received 4 units. Patient was at [facility] today and her Hcg is 4.7. She was feeling weak and tired and [facility] sent her here for blood transfusion. The patient states on 01/07 she had a hemoglobin of 6.7 and she received 3 units of blood and 2 units of platelets. Her fatigue and weakness did not improve with the transfusion. She also received Epogen therapy in 10/2018 without improvement. She did test weakly positive for direct antiglob test. The patient denies fever, chills, nausea or vomiting. Denies noticing any blood per rectum. Denies hematuria, hematochezia or melena. Denies hemoptysis. Past Med Surg Social Fam HX - Past Medical History Medical history: hyperlipidemia, hypertension, thyroid disease, other Additional medical history: heart murmur. SMOKER. HIGH CHOLESTEROL. HYPOTHYROIDISM. ANEMIA. diverticulosis. MDS Psychiatric history: depression - Past Surgical History Surgical History: cataract Additional surgical history: BRAIN SURGERY. TUBAL LIGATION. D & C. colonoscopy - egd - Social History Smoking Status: Former smoker Smokeless Tobacco Status: No Alcohol use: none Drug use: none - Family History Mother Family Member Ethnicity: Non- Living Status: Hx Family Cardiac Disorders: No Hx Family Respiratory Disorders: No Hx Family Cancer: Yes Hx Family GI Disorders: No Hx Family Endocrine Disorder: Yes (diabetes) Hx Family Neuromuscular Disorders: No Hx Family Neurologic Disorders: No Hx Family HEENT Disorders: No Hx Family Autoimmune Disorders: No Internal Medicine - H&P: Meds Atorvastatin Calcium [Lipitor] 80 mg PO QPM 10/20/17 [History] Cholecalciferol (Vitamin D3) [Vitamin D3] 2,000 unit PO Q48H 10/20/17 [History] Nitroglycerin [Nitrostat] 0.4 mg SL Q5M PRN 05/04/18 [History] Pyridoxine (B-6) [Vitamin B-6] 50 mg PO DAILY #30 tablet 05/04/18 [Rx] Levothyroxine [Synthroid] 75 mcg PO QAM 07/02/18 [History] Metoprolol XL (24 HR) Succ [Toprol Xl] 12.5 mg PO HS 07/30/18 [History] Magic Mouthwash [Magic Mouthwash BLM] 10 ml PO QID PRN #240 ml 01/11/19 [Rx] Allergy/AdvReac Type Severity Reaction Status Date / Time No Known Allergies Allergy Verified 01/13/19 17:39 All Systems PM: A 10-system review of systems was performed and is negative for pertinent findings except as documented above in the HPI. - Constitutional Constitutional: anorexia, weakness, no chills, no fever(s), no night sweats - EENT Eyes: no change in vision, no discharge, no pain, no photophobia Ears: no ear discharge, no ear pain, no tinnitus Nose, mouth and throat: no dysphagia, no nasal discharge, no neck pain, no sore throat - Cardiovascular Cardiovascular ROS IM: no chest pain, no diaphoresis, no dyspnea, no lightheadedness, no palpitations, no syncope - Respiratory Respiratory: no cough, no wheezing, no excessive phlegm production - Gastrointestinal Gastrointestinal: no abdominal pain, no diarrhea, no hematemesis, no hematochezia, no melena, no nausea, no vomiting - Genitourinary Genitourinary: no change in urinary stream, no dysuria, no flank pain, no hematuria - Musculoskeletal Musculoskeletal ROS IM: no numbness, no tingling - Integumentary Integumentary IM: no rash, no unusual bruising - Neurological Neurological ROS: no confusion, no convulsions, no focal weakness, no numbness, no tingling, no tremor(s) - Hematologic/Lymphatic Hematologic/Lymphatic: no easy bruising - Constitutional Vitals: Temp Pulse Resp BP Pulse Ox 98.4 F 109 18 107/52 100 01/13/19 10:15 01/13/19 12:36 01/13/19 12:36 01/13/19 12:36 01/13/19 12:36 General appearance: Present: A&O X 3 Exam: as below - Head Head exam: Present: atraumatic, normocephalic - Eye Eye exam: Present: PERRL, scleral icterus Pupils: Present: PERRL - Neck Neck exam general surgery: Present: supple, trachea midline. Absent: lymphadenopathy - Respiratory Respiratory exam: Present: CTAB. Absent: accessory muscle use, rales, rhonchi, wheezes Additional comments: decreased breath sounds - Cardiovascular Cardiovascular exam: Present: +S1, +S2, tachycardia. Absent: diastolic murmur, gallop, rubs, systolic murmur - GI/Abdominal GI/Abdominal exam: Present: hypoactive bowel sounds, soft, no peritoneal signs. Absent: distended, tenderness - Extremities Exam Extremities exam: Present: warm, radial pulses palpable and symmetrical. Abs ent: calf tenderness, cyanotic, pedal edema - Neurological Exam Neurological exam: Present: oriented X3, no focal deficits. Absent: pronater drift, facial droop, speech deficit - Skin Skin exam: Present: dry, intact Additional comments: jaundice Internal Med - H&P Results - Labs CBC & Chem 7: 01/13/19 10:26 01/13/19 10:26 Labs: Short CBC 01/13/19 Range/Units 10:26 WBC 0.5 L* (4.3-11.1) K/mcL Hgb 5.0 L* (11.5-15.4) g/dL Hct 14.9 L* (35.3-44.9) % Plt Count 26 L* (140-400) K/mcL Neutrophils # 0.0 L (1.6-8.9) K/mcL BMP 01/13/19 10:26 Sodium 134 L Potassium 3.6 Chloride 103 Carbon Dioxide 19 L BUN 41 H Creatinine 1.25 H Glucose 238 H Calcium 7.7 L Liver Function 01/13/19 01/13/19 Range/Units 10:26 12:05 Total Bilirubin 1.0 0.8 (0.3-1.0) mg/dL Direct Bilirubin 0.3 H (0.0-0.2) mg/dL AST 38 (13-39) Units/L ALT 40 (7-52) Units/L Alkaline Phosphatase 60 (34-104) Units/L Albumin 2.7 L (3.5-5.7) g/dL - Assessment and Plan (1) Anemia Current Visit: Yes Status: Acute Assessment and plan: 68F with known MDS presents from [facility] for hcg < 5.0. Multiple blood transfusions in the last 3 months. Last transfusion was last week. Anemia of chronic disease Katiana Zuniga CNP, consulted. Recommendations appreciated. Bili total and indirect are unremarkable Ferritin > 1500, transferrin 92, Fe 44 suggest anemia of chronic disease, MDS Lactate dehydogenase unremarkable Pending blood smear Vitamin B12 low, Folate WNL. likely macrocytic anemia is contributing to her anemia from vitamin B12 deficiency. Will supplement with Vitamin B12 Recheck CBC tomorrow morning. H/H check q8 hours after her 4 units RBCs Qualifiers: Anemia type: B12 deficiency Vitamin B12 deficiency anemia type: unspecified B12 deficiency Qualified Code(s): D51.9 - Vitamin B12 deficiency anemia, unspecified (2) Myelodysplasia (myelodysplastic syndrome) Current Visit: Yes Status: Chronic Assessment and plan: pancytopenia and severe neutropenia in the setting of myelodysplastic syndrome Will screen for acute infection Pending RIP, strep throat culture, UA CXR with RYAN consolidation. Will obtain CT chest. Continue management for anemia per above. Hemoch recommendations appreciated. (3) Severe neutropenia Current Visit: Yes Status: Acute Assessment and plan: Treat per above (4) Hypotension Current Visit: No Status: Acute Assessment and plan: Hold BP medications for now. IVFs and Blood transfusion. Expect this to improve Qualifiers: Hypotension type: other hypotension type Qualified Code(s): I95.89 - Other hypotension (5) Hypothyroidism Current Visit: No Status: Chronic Assessment and plan: Recheck TSH tomorrow morning. Continue with home synthroid. Qualifiers: Hypothyroidism type: unspecified Qualified Code(s): E03.9 - Hypothyroidism, unspecified (6) Tobacco abuse Current Visit: No Status: Chronic Assessment and plan: Consider nicoderm patches. (7) DVT prophylaxis Current Visit: No Status: Acute Assessment and plan: SCDs (8) Tachycardia Current Visit: Yes Status: Acute - Time Spent With Patient Total time spent is greater than 50% in coordination of care (as documented) at patient's floor/unit and/or counseling patient: Greater than 35 minutes <Jadon French - Last Filed: 01/14/19 08:37> Date of Encounter: 01/13/19 Internal Medicine - H&P: HPI History of present illness: Ms. Olguin is a 68 year old female All Systems PM: A 10-system review of systems was performed and is negative for pertinent findings except as documented above in the HPI. - Constitutional Vitals: Temp Pulse Resp BP Pulse Ox 99.5 F 112 16 91/53 94 01/13/19 13:59 01/13/19 13:59 01/13/19 13:59 01/13/19 13:59 01/13/19 13:59 Internal Med - H&P Results - Labs CBC & Chem 7: 01/14/19 00:24 01/14/19 00:24 Labs: Short CBC 01/13/19 Range/Units 10:26 WBC 0.5 L* (4.3-11.1) K/mcL Hgb 5.0 L* (11.5-15.4) g/dL Hct 14.9 L* (35.3-44.9) % Plt Count 26 L* (140-400) K/mcL Neutrophils # 0.0 L (1.6-8.9) K/mcL BMP 01/13/19 10:26 Sodium 134 L Potassium 3.6 Chloride 103 Carbon Dioxide 19 L BUN 41 H Creatinine 1.25 H Glucose 238 H Calcium 7.7 L Liver Function 01/13/19 01/13/19 Range/Units 10:26 12:05 Total Bilirubin 1.0 0.8 (0.3-1.0) mg/dL Direct Bilirubin 0.3 H (0.0-0.2) mg/dL AST 38 (13-39) Units/L ALT 40 (7-52) Units/L Alkaline Phosphatase 60 (34-104) Units/L Albumin 2.7 L (3.5-5.7) g/dL - Impressions ITS Impressions Chest X-Ray 01/13/19 14:35 IMPRESSION: Left upper lobe consolidation. RECOMMENDATION: Follow-up imaging to ensure resolution and exclude pulmonary mass. D/ / 01/13/2019 14:59:14 Duane Jorgensen MD / [facility] Interpreting Provider: Duane Jorgensen MD - Time Spent With Patient Total time spent is greater than 50% in coordination of care (as documented) at patient's floor/unit and/or counseling patient: - Attending Attestation I examined this patient and my medical decision-making was reviewed with the Resident Physician Dr. Frias. I agree with the documented findings, disposition and treatment plan as described except to the extent set forth below. Ms. Olguin is a 68 y/o F with known PMH of MDS, Severe anemia, thrombocytopenia and pancytopenia who gets frequent blood transfusion and platelet transfusion from [facility] now she was sent to our ER for worsening anemia with Hb @ 4.7. She also c/o SOB and REDDY. Pt looks very pale and lethargic. She denied any GI bleed. Denied any fever / chills. She did c/o sore throat. Gen: very pale.. A, A, O x 4 Chest: Diminished BS b/l, No crackles, no rales Heart: S1S2+ Tachycardia, No murmur a/p 1. Acute sever symptomatic anemia due to MDS 2. Severe neutropenia 3. Severe thrombocytopenia 4. Pancytopenia due to MDS 5. Sore throat admit the pt into tele Blood transfusions PRBC x 2 now and hold 2 more close monitoring of H/H IV hydration CXR and UA to r.o inf Neutropenia precautions Heme Onc consulted check resp viral panel, strep PNA
[2019-01-13 14:37] LABS: Folate 11.3 ng/mL (3.0-16.0)
--- NOTE | 2019-01-13 14:42 | Oncology Inp Consult Note ---
<Vince Frias - Last Filed: 01/13/19 15:01> Date of Encounter: 01/13/19 Time of Encounter: 15:01 - Data of Consult Requesting Physician: Caryn Luna MD Primary Care Provider: Dennys Sabillon DO Medications and Allergies Atorvastatin Calcium [Lipitor] 80 mg PO QPM 10/20/17 [History] Cholecalciferol (Vitamin D3) [Vitamin D3] 2,000 unit PO Q48H 10/20/17 [History] Nitroglycerin [Nitrostat] 0.4 mg SL Q5M PRN 05/04/18 [History] Pyridoxine (B-6) [Vitamin B-6] 50 mg PO DAILY #30 tablet 05/04/18 [Rx] Levothyroxine [Synthroid] 75 mcg PO QAM 07/02/18 [History] Metoprolol XL (24 HR) Succ [Toprol Xl] 12.5 mg PO HS 07/30/18 [History] Magic Mouthwash [Magic Mouthwash BLM] 10 ml PO QID PRN #240 ml 01/11/19 [Rx] Allergy/AdvReac Type Severity Reaction Status Date / Time No Known Allergies Allergy Verified 01/13/19 17:39 Consult Discharge Plan - Plan Referrals: Dennys Sabillon DO [Primary Care Provider] - <Katiana Zuniga - Last Filed: 01/14/19 11:56> Date of Encounter: 01/13/19 Assessment and Plan (1) Anemia Status: Acute Assessment and plan: Normocytic,Normochromic anemia in the setting of MDS s/p decitabine Not responding well to outpatient PRBC transfusion Denies s/s bleeding No evidence of hemolysis given low LDH and normal indirect bili, apple 1+ B12 severely deficient at 105, s/p B12, started oral supplementation Folate/Iron replete Plan: PRBC x4 units ordered Monitor for response to PRBC Blood smear pending Qualifiers: Anemia type: B12 deficiency Vitamin B12 deficiency anemia type: unspecified B12 deficiency Qualified Code(s): D51.9 - Vitamin B12 deficiency anemia, unspecified (2) Myelodysplasia (myelodysplastic syndrome) Status: Chronic Assessment and plan: Anemia, macrocytosis ringed sideroblasts, suspected MDS. Progressive pancytopenia, started decitabine, d1-d5 q 28 day schedule start C1 12/20/18 (3) Severe neutropenia Status: Acute Assessment and plan: ANC 0 Plan: CXR/Chest CT/Panculture Monitor for sepsis/fever Panculture for fever, maintain high suspicion for infection Neutropenic precautions - Data of Consult Patient: known to practice within the last 3 years Consult date: 01/13/19 Requesting Physician: Caryn Luna MD Primary Care Provider: Dennys Sabillon, - Consult Narrative Reason for consult: MDS History of present illness: This is a 68-year-old female with medical history significant for hypothyroidism hypercholesterolemia who underwent workup for anemia. patient had ferritin drawn which is around 297 in March 2015, within normal limits. Thyroid function is being closely monitored as she is on levothyroxine and has been within normal limits. She had hematuria and had undergone a cystoscopy by urology as well as a CT scan of abdomen and pelvis to look at the kidneys which showed atherosclerosis otherwise negative study. She had also undergone colonoscopy and endoscopy capsule study which colonoscopy showed polyps hyperplastic Patient had needed repeated transfusions support. Her iron was low which was replenished. Bone marrow x 12/29--normocellular marrow with adequate iron store. Dyspoesis. Cyto nl, FISH not sent. She underwent a repeat bone marrow aspiration biopsy April 2018 which showed a normocellular bone marrow with increased ring sideroblasts mild relative erythroid hyperplasia with mild megaloblastic and megaloblastoid change. Unclear if she has refractory anemia with ringed sideroblasts. She had developed progressive cytopenia and decision was made to start decitabine cycle 1 on 12/20/2018. Ms. Olguin was asked to present to ER after appointment today with Dr. Mendoza with symptomatic anemia Hgb 4.7. She denies any s/s bleeding. She has been admitted for PRBC transfusion support. Past Med Surg Social Fam HX - Past Medical History Medical history: hyperlipidemia, hypertension, thyroid disease, other Additional medical history: heart murmur. SMOKER. HIGH CHOLESTEROL. HYPOTHYROIDISM. ANEMIA. diverticulosis. MDS Psychiatric history: depression - Past Surgical History Surgical History: cataract Additional surgical history: BRAIN SURGERY. TUBAL LIGATION. D & C. colonoscopy - egd - Social History Smoking Status: Former smoker Packs per day: less than 1/2 pack Smokeless Tobacco Status: No Alcohol use: none Drug use: none - Family History Mother Family Member Ethnicity: Non- Living Status: Hx Family Cardiac Disorders: No Hx Family Respiratory Disorders: No Hx Family Cancer: Yes Hx Family GI Disorders: No Hx Family Endocrine Disorder: Yes (diabetes) Hx Family Neuromuscular Disorders: No Hx Family Neurologic Disorders: No Hx Family HEENT Disorders: No Hx Family Autoimmune Disorders: No Oncology - Exam - Constitutional General appearance: cooperative, no acute distress, thin, no febrile - Head Head exam: Present: atraumatic - ENT ENT exam: Present: mucous membranes moist, normal oropharynx - Respiratory Respiratory exam: Present: decreased breath sounds, wheezes. Absent: respiratory distress - Cardiovascular Cardiovascular exam: Present: RRR, tachycardia - GI/Abdominal GI/Abdominal exam: Present: normal bowel sounds, soft. Absent: tenderness - Extremities Exam Extremities exam: Present: normal inspection. Absent: calf tenderness - Neurological Exam Neurological exam: Present: alert, oriented X3, no focal deficits, strengths equal and symetr throughout - Psychiatric Psychiatric exam: Present: normal affect, normal mood - Skin Skin exam: Present: dry, intact, pallor, warm Inpatient Charges Provider: Dr. Radha Duenas <Anca Duenas - Last Filed: 01/14/19 15:20> Date of Encounter: 01/14/19 - Data of Consult Requesting Physician: Caryn Luna MD Primary Care Provider: Dennys Sabillon DO - Attending Attestation Weakness, pallor. Hemoglobin was reported to be at 4.7 patient denied any bleeding she was hospitalized for blood transfusion. Patient was seen yesterday in the hospital. Lab data reviewed no signs of hemolysis, bleeding. She has a cough with some congestion phlegm production. Her sore throat is improving. She denied any pain. Myelodysplastic syndrome status post first cycle of decitabine with pancytopenia possibly related to MDS, treatment, status post platelet transfusion, PRBC 2 days before indicating refractoriness to transfusion. Inpatient records reviewed she has gram negative rods and CT finding showing possible pneumonia. She is moving to intensive care unit for hypotension/sepsis when she developed overnight. On Omnicef/ceftazidine. I examined this patient and my medical decision-making was reviewed with the Advanced Practice Nurse, Katiana Zuniga CNP. I agree with the documented findings, disposition and treatment plan as described except to the extent set forth below. Inpatient Charges Provider: Dr. Radha Duenas Consult - Inpatient: [id number]
[2019-01-13] MEDS ORDERED: Cyanocobalamin (B-12) 1,000 MCG/ML VIAL IM ONE (15:08)
[2019-01-13] MEDS ORDERED: Nitroglycerin 0.4 MG TAB.SUBL SL PRN (15:22)
[2019-01-13] MEDS ORDERED: 0.9 % Sodium Chloride 1,000 ML IVC ONE (15:44)
[2019-01-13 16:39] LABS: Hematocrit 14.2 % (35.3-44.9); Hemoglobin 4.8 g/dL (11.5-15.4)
[2019-01-13] MEDS ORDERED: 0.9 % Sodium Chloride 250 ML ONE ×2 (17:12→19:55)
[2019-01-13] MEDS ORDERED: CEFTAZIDIME IVP SCH (18:00)
[2019-01-13] MEDS ORDERED: WATER FOR INJ IVP SCH (18:00)
[2019-01-13] MEDS ORDERED: Acetaminophen 325 MG TABLET PO PRN (18:20)
[2019-01-13] MEDS ORDERED: 0.9 % Sodium Chloride 250 ML IVC ONE (19:51)
[2019-01-13] MEDS ORDERED: Cefdinir 300 MG CAPSULE PO SCH (21:00)
[2019-01-13] MEDS ORDERED: 0.9 % Sodium Chloride 500 ML IVC ONE ×2 (21:03→22:32)
[2019-01-13] MEDS ORDERED: Levofloxacin 500 MG/100 ML 500 MG/100 ML BAG IVPB SCH (23:45)
[2019-01-14 00:15] LABS: Bilirubin,Urine Small (Negative); Blood,Urine Trace (Negative); Clarity,Urine Turbid (Clear); Color,Urine Dark Yellow (Yellow); Glucose,Urine (UA) Normal (Normal); Ketones,Urine Negative (Negative); Leukocyte Esterase,Urine Negative (Negative); Nitrite,Urine Negative (Negative); Protein,Urine 30 mg/dL (Neg-Trace); Specific Gravity,Urine 1.017 (1.010-1.025); Urobilinogen,Urine Normal (Normal)
[2019-01-14 00:16] LABS: RBC,Urine 0-3 per hpf (0-3); Squamous Epithelial Cell,Urine Many per lpf (None-Few)
--- NOTE | 2019-01-14 00:18 | Event Note ---
Date of Encounter: 01/13/19 Time of Encounter: 19:36 Notified by nurse of patient transferring from after spiking fever during blood transfusion. Day team ordered tylenol for fever. Heart rate elevated and hypotensive on arrival to . Repeat type and screen being performed and blood from transfusion being tested prior to continuing additional transfusions. 250ml bolus ordered due to history of CHF. Unclear if reaction to blood or sepsis. Blood cultures and antibiotics started by day team, UA pending. Heart rate improved, fever improved, blood pressure remained same. Second bolus ordered, 500ml. Heart rate and fever continued to improve, blood pressure slightly improved, lung sounds remained clear. Third bolus ordered, 500ml, prior to administration patient developed respiratory distress with decreased oxygen saturations suspected fluid overload, placed on oxygen mask and chest xray ordered. Blood pressure and pulse ox initially improved, to 105 systolic, saturations in low 90's on 15lpm, and then started to drop again. Briefly seen at bedside with Dr Tran, will facilitate transfer to higher level of care. Antibiotic coverage broadened, repeat labs ordered, UA obtained by straight cath and pending. Transferring to ICU.
[2019-01-14 00:26] LABS: Amorphous Sediment,Urine Many (Few); Bacteria,Urine Moderate per hpf (None-Few)
[2019-01-14 00:35] LABS: Immature Granulocytes % 4.3 % (0-4); Lymphocytes # 0.2 K/mcL (0.6-4.6); Lymphocytes % 78.3 %; Mean Corpuscular HGB Conc 34.1 g/dL (31.6-35.5); Mean Corpuscular Hemoglobin 29.9 pg (28.0-33.3); Mean Corpuscular Volume 87.5 fL (83.0-100.0); Mean Platelet Volume 13.6 fL (9.4-12.4); Monocytes % 8.7 %; Red Blood Count 1.44 M/mcL (3.82-4.97); Red Cell Distribution Width 14.2 % (11.5-14.5); Segmented Neutrophils % 8.7 %
[2019-01-14 00:38] LABS: Hematocrit 12.6 % (35.3-44.9); Hemoglobin 4.3 g/dL (11.5-15.4); Platelet Count 24 K/mcL (140-400)
[2019-01-14 00:44] LABS: INR 1.6; Prothrombin Time 18.1 Seconds (9.4-12.1)
[2019-01-14] MEDS ORDERED: Acetaminophen 325 MG TABLET PO PRN (00:51)
[2019-01-14] MEDS ORDERED: Nitroglycerin 0.4 MG TAB.SUBL SL PRN (00:51)
[2019-01-14 00:54] LABS: Albumin 2.3 g/dL (3.5-5.7); Albumin/Globulin Ratio 0.7 (1.1-2.2); Calcium 7.3 mg/dL (8.6-10.3); Globulin 3.1 g/dL (2.4-3.5); Potassium 3.5 mEq/L (3.5-5.1); Total Protein 5.4 g/dL (6.4-8.9)
[2019-01-14 01:10] LABS: Clarity,Urine Turbid (Clear); Color,Urine Dark Yellow (Yellow); Glucose,Urine (UA) Normal (Normal)
[2019-01-14 01:11] LABS: Bilirubin,Urine Small (Negative); Blood,Urine Trace (Negative); Ketones,Urine Negative (Negative); Specific Gravity,Urine 1.017 (1.010-1.025)
[2019-01-14 01:12] LABS: Protein,Urine 30 mg/dL (Neg-Trace)
[2019-01-14 01:13] LABS: Leukocyte Esterase,Urine Negative (Negative); Nitrite,Urine Negative (Negative); RBC,Urine 0-3 per hpf (0-3); Urobilinogen,Urine Normal (Normal)
[2019-01-14 01:14] LABS: Amorphous Sediment,Urine Many (Few); Bacteria,Urine Moderate per hpf (None-Few); Squamous Epithelial Cell,Urine Many per lpf (None-Few)
[2019-01-14 01:39] LABS: Hypochromasia Present (Not Present); Large Platelets Present (Not Present); Platelet Estimate Marked Decrease (Normal)
[2019-01-14 01:40] LABS: Burr Cells 1+ (Not Present)
[2019-01-14] MEDS ORDERED: Lidocaine -MPF 2% 5 ML VIAL ONE (01:41)
[2019-01-14] MEDS: Piperacillin/Tazobactam 3.375 GM in 0.9 % Sodium Chloride Mini Bag 100 ML IVPB SCH ×3 (01:56→20:26)
--- NOTE | 2019-01-14 02:02 | Procedure Note ---
Date of procedure: 01/14/19 Pre-op diagnosis: septic shock Post-op diagnosis: same Procedure: Right Femoral CVC After obtaining informed consent from patient verbally and as witnessed by her primary nurse, I prepped and draped her right femoral groin area in sterile fashion. After appropriate timeout procedure, I proceeded to locally anesthetize her right groin area with 1% lidocaine. Using Seldinger technique, I proceeded to successfully aspirate and cannulate the femoral vein on the first attempt. I threaded the guidewire through large-bore needle and then removed the needle. I made a small incision at the skin site and then used the dilator over the guidewire to dilate the skin and femoral vein. I removed the dilator then. At that point, I threaded the triple-lumen catheter over the guidewire and removed the guidewire intact. All 3 ports were successfully aspirated of blood and flushed all 3 ports with normal saline. I then sutured the triple lumen catheter in place with the provided silk suture. I use an Arrows 20 cm triple lumen CVC kit for the procedure and use the provided supplies within the kit. Patient tolerated procedure well with minimal blood loss of roughly 2 mL. Indication for CVC was septic shock with need for pressure support, rapid blood product transfusion, and further hemodynamic stabilization. Anesthesia: local Surgeon: Julio Morales Was there an zoning assistant present: No Estimated blood loss (cc): 2 Specimen: none Pathology: none sent Condition: critical Disposition: ICU
[2019-01-14] MEDS: Norepinephrine 4 MG in D5% in Water 250 ML IVC SCH ×2 (03:08→08:20)
[2019-01-14 04:02] LABS: Adenovirus Not Detected (Not Detect); Bordetella Pertussis Not Detected (Not Detect); Chlamydophila pneumoniae Not Detected (Not Detect); Coronavirus 229E Not Detected (Not Detect); Coronavirus HKU1 Not Detected (Not Detect); Coronavirus NL63 Not Detected (Not Detect); Coronavirus OC43 Not Detected (Not Detect); Human Metapneumovirus Not Detected (Not Detect); Human Rhinovirus/Enterovirus Not Detected (Not Detect); Influenza A Subtype 2009 H1 Not Detected (Not Detect); Influenza A Untypeable Not Detected (Not Detect); Influenza B Not Detected (Not Detect); Mycoplasma pneumoniae Not Detected (Not Detect); Parainfluenza Virus 1 Not Detected (Not Detect); Parainfluenza Virus 2 Not Detected (Not Detect); Parainfluenza Virus 3 Not Detected (Not Detect); Parainfluenza Virus 4 Not Detected (Not Detect); Respiratory Syncytial Virus Not Detected (Not Detect)
--- NOTE | 2019-01-14 07:18 | Pulmonology Consult Note ---
<Jimmy Newberry - Last Filed: 01/14/19 10:31> Date of Encounter: 01/14/19 Time of Encounter: 07:18 Assessment and Plan (1) Septic shock Current Visit: Yes Status: Acute Patient has evidence of septic shock requiring pressor support. Patient is on 20 of Levophed. Patient's blood culture positive for Escherichia coli. Patient will be switched from Zosyn to meropenem. We will continue the vancomycin and Levaquin at this time. Patient's antibiotic regimen will be re-addressed tomorrow. We will continue to monitor the patient's vital signs and respiratory status. Should the patient's respiratory status continued to worsen she has s tated that she does not want to be on BiPAP. Patient is okay with being intubated. Patient will require intubation if her respiratory status does decline. Patient is currently on an oxygen mask. (2) Anemia Current Visit: Yes Status: Acute Patient has a profound anemia of 4.3 on this morning's lab and improved to 7.0. Patient has been transfused with 1 platelets and 2.5 PRBC. Patient will recieve an additional 1 unit prbc. Patient's hemoglobin will be trended and will be transfused as necessary. Oncology has been consult and is following the patient. Qualifiers: Anemia type: B12 deficiency Vitamin B12 deficiency anemia type: unspecified B12 deficiency Qualified Code(s): D51.9 - Vitamin B12 deficiency anemia, unspecified (3) Myelodysplasia (myelodysplastic syndrome) Current Visit: Yes Status: Chronic Patient has a history of myelodysplastic syndrome and follows with oncology. Patient is pancytopenic. Patient's white blood cell count was 0.2, hemoglobin 4 .3, hematocrit 12.6, white count 24 and neutrophil# 0.0. The patient has been transfused with platelets and PRBCs. We will continue to monitor the patient's blood cell counts and transfuse as appropriate. (4) Hypotension Current Visit: Yes Status: Acute Patient has had significant hypertension. This is likely secondary to her anemia. Patient has required pressors. Patient is on 20 of Levophed. We will continue to monitor the patient's blood pressure for any acute changes and for any requirements of increased vasopressor support. Qualifiers: Hypotension type: other hypotension type Qualified Code(s): I95.89 - Other hypotension (5) Hypothyroidism Current Visit: No Status: Chronic Continue the patient's Synthroid. TSH was 2.802. Qualifiers: Hypothyroidism type: unspecified Qualified Code(s): E03.9 - Hypothyroidism, unspecified (6) Severe neutropenia Current Visit: Yes Status: Acute Patient has a white blood cell count of 0.2. Neutrophil# 0.0. Oncology has been consult and is following the patient. (7) DVT prophylaxis Current Visit: No Status: Acute SCDs have been ordered for DVT prophylaxis. History of Present Illness Consult date: 01/14/19 Requesting physician: Tanner Tran Reason for consult: other (Anemia) Chief complaint: Anemia History of present illness: Patient is a 68-year-old female that was admitted due to a low hemoglobin. 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 Patient was symptomatic feeling weak and tired patient was then sent to the emergency department for admission for blood transfusion. Patient has a chronic anemia due to myelodysplastic syndrome. Patient has had multiple transfusions and deep region in the past. Patient had denied any fevers chills nausea or vomiting. Patient denies any blood in her stool or vomiting any blood. Patient just states that she feels weak and tired. Oncology was consult and is following the patient. Past Med Surg Social Fam HX - Past Medical History Medical history: hyperlipidemia, hypertension, thyroid disease, other Additional medical history: heart murmur. SMOKER. HIGH CHOLESTEROL. HYPOTHYROIDISM. ANEMIA. diverticulosis. MDS Psychiatric history: depression - Past Surgical History Surgical History: cataract Additional surgical history: BRAIN SURGERY. TUBAL LIGATION. D & C. colonoscopy - egd - Social History Smoking Status: Former smoker Packs per day: less than 1/2 pack Smokeless Tobacco Status: No Alcohol use: none Drug use: none - Family History Mother Family Member Ethnicity: Non- Living Status: Hx Family Cardiac Disorders: No Hx Family Respiratory Disorders: No Hx Family Cancer: Yes Hx Family GI Disorders: No Hx Family Endocrine Disorder: Yes (diabetes) Hx Family Neuromuscular Disorders: No Hx Family Neurologic Disorders: No Hx Family HEENT Disorders: No Hx Family Autoimmune Disorders: No Medications and Allergies Atorvastatin Calcium [Lipitor] 80 mg PO QPM 10/20/17 [History] Cholecalciferol (Vitamin D3) [Vitamin D3] 2,000 unit PO Q48H 10/20/17 [History] Nitroglycerin [Nitrostat] 0.4 mg SL Q5M PRN 05/04/18 [History] Pyridoxine (B-6) [Vitamin B-6] 50 mg PO DAILY #30 tablet 05/04/18 [Rx] Levothyroxine [Synthroid] 75 mcg PO QAM 07/02/18 [History] Metoprolol XL (24 HR) Succ [Toprol Xl] 12.5 mg PO HS 07/30/18 [History] Magic Mouthwash [Magic Mouthwash BLM] 10 ml PO QID PRN #240 ml 01/11/19 [Rx] Allergy/AdvReac Type Severity Reaction Status Date / Time No Known Allergies Allergy Verified 01/13/19 17:39 All Systems: The remainder of the systems were reviewed and are negative - Constitutional Constitutional: fatigue - Cardiovascular Cardiovascular: no chest pain - Respiratory Respiratory: dyspnea - Gastrointestinal Gastrointestinal: no hematochezia, no melena Physical Examination Vital Signs: Vital Signs, Last 4 Hours Temp Pulse Resp BP Pulse Ox 01/14/19 06:00 129 31 86/52 91 01/14/19 05:20 97.6 F 129 31 86/52 91 01/14/19 05:05 97.6 F 125 26 82/46 96 01/14/19 05:01 97.6 F 125 82/46 01/14/19 05:00 129 26 92/50 86 01/14/19 04:00 125 26 82/46 96 General appearance: other (Patient appears to be fatigued. Wearing oxygen mask resting in bed. Patient is pale in appearance.) Eyes: nonicteric ENT: oropharynx moist Neck: supple Effort: mildly labored Auscultation: bilateral: other (Course breath sounds worse in the left) Cardiovascular: other (Patient is regular but tachycardic) Gastrointestinal: normoactive bowel sounds, soft, non-tender, non-distended Integumentary: normal Extremities: edema (Trace), other (Patient appears pale) Musculoskeletal: no deformities normal mental status, non-focal exam other (Patient appears fatigued with a flat affect) Results - Laboratory Findings CBC and BMP: 01/14/19 08:50 01/14/19 08:50 PT/INR, D-dimer PT 18.1 Seconds (9.4-12.1) H 01/14/19 00:24 Abnormal lab findings: Abnormal lab results WBC 0.2 K/mcL (4.3-11.1) L* D 01/14/19 00:24 RBC 1.44 M/mcL (3.82-4.97) L 01/14/19 00:24 Hgb 4.3 g/dL (11.5-15.4) L* 01/14/19 00:24 Hct 12.6 % (35.3-44.9) L* 01/14/19 00:24 Plt Count 24 K/mcL (140-400) L* 01/14/19 00:24 MPV 13.6 fL (9.4-12.4) H 01/14/19 00:24 Immature Gran % 4.3 % (0-4) H 01/14/19 00:24 0.0 K/mcL (1.6-8.9) L 01/14/19 00:24 0.2 K/mcL (0.6-4.6) L 01/14/19 00:24 Marked Decrease (Normal) L 01/14/19 00:24 Present (Not Present) A 01/14/19 00:24 Present (Not Present) A 01/14/19 00:24 1+ (Not Present) A 01/13/19 10:26 1+ (Not Present) A 01/13/19 10:26 1+ (Not Present) A 01/14/19 00:24 PT 18.1 Seconds (9.4-12.1) H 01/14/19 00:24 Sodium 134 mEq/L (136-145) L 01/13/19 10:26 Chloride 109 mEq/L (98-107) H 01/14/19 00:24 Carbon Dioxide 14 mEq/L (23-29) L 01/14/19 00:24 BUN 53 mg/dL (8-23) H 01/14/19 00:24 1.50 mg/dL (0.60-1.20) H 01/14/19 00:24 Est GFR ( Amer) 42 (> 60) L 01/14/19 00:24 Est GFR (Non-Af Amer) 35 (> 60) L 01/14/19 00:24 35 (6-26) H 01/14/19 00:24 Glucose 131 mg/dL (70-105) H 01/14/19 00:24 POC Glucose 170 mg/dL (70-99) H 01/14/19 00:17 Lactic Acid 3.3 mmol/L (0.5-2.2) H 01/14/19 05:00 Calcium 7.3 mg/dL (8.6-10.3) L 01/14/19 00:24 Iron 44 mcg/dL (50-170) L 01/13/19 12:05 92 mg/dL (203-362) L 01/13/19 12:05 > 1500 ng/mL (10-120) H 01/13/19 12:05 0.3 mg/dL (0.0-0.2) H 01/13/19 12:05 AST 45 Units/L (13-39) H 01/14/19 00:24 139 Units/L (140-271) L 01/13/19 12:05 5.4 g/dL (6.4-8.9) L 01/14/19 00:24 2.3 g/dL (3.5-5.7) L 01/14/19 00:24 0.7 (1.1-2.2) L 01/14/19 00:24 Vitamin B12 105 pg/mL (250-1100) L 01/13/19 12:05 Turbid (Clear) A 01/13/19 23:41 30 mg/dL (Neg-Trace) H 01/13/19 23:41 Trace (Negative) H 01/13/19 23:41 Small (Negative) H 01/13/19 23:41 5-15 per hpf (0-3) H 01/13/19 23:41 Ur Squamous Epith Cells Many per lpf (None-Few) H 01/13/19 23:41 Amorphous Sediment Many (Few) H 01/13/19 23:41 Moderate per hpf (None-Few) H 01/13/19 23:41 Ur Culture Indicated? YES (NO) A 01/13/19 23:41 Direct Antiglob Test +/- Weak Positive (Negative) A 01/13/19 12:05 MTS Gel Crossmatch See Detail 01/13/19 12:05 - Microbiology Findings Microbiology Findings: Microbiology, Last 48 Hours 01/13/19 23:41 Urine Culture - Preliminary Urine,Clean Catch Culture is incubating. 01/13/19 19:27 Blood Culture - Preliminary Peripheral Venipuncture Culture is incubating and being continuously monitored for growth. Final report to follow. 01/13/19 19:26 Blood Culture - Preliminary Peripheral Venipuncture Culture is incubating and being continuously monitored for growth. Final report to follow. - Clinical Findings Intake & Output: Intake & Output 01/13/19 01/13/19 01/14/19 15:59 23:59 07:59 Intake Total 1360 / 1360 2170 / 2170 Output Total 200 / 200 Balance 1360 / 1360 1969 / 1969 Weight 62.596 kg 61.7 kg Consult Discharge Plan - Plan Referrals: Dennys Sabillon DO [Primary Care Provider] - <Tyler Vann - Last Filed: 01/14/19 16:51> Date of Encounter: 01/14/19 All Systems: The remainder of the systems were reviewed and are negative Physical Examination Vital Signs: Vital Signs, Last 4 Hours Temp Pulse Resp BP Pulse Ox 01/14/19 09:00 120 31 83/49 91 01/14/19 08:00 128 26 96/53 91 01/14/19 07:38 97.8 F 128 28 90/53 89 01/14/19 07:10 98.8 F 01/14/19 07:00 129 32 96/53 90 01/14/19 06:00 129 31 86/52 91 Results - Laboratory Findings CBC and BMP: 01/14/19 08:50 01/14/19 08:50 PT/INR, D-dimer PT 18.1 Seconds (9.4-12.1) H 01/14/19 00:24 Abnormal lab findings: Abnormal lab results WBC 0.5 K/mcL (4.3-11.1) L* D 01/14/19 08:50 RBC 2.39 M/mcL (3.82-4.97) L 01/14/19 08:50 Hgb 7.0 g/dL (11.5-15.4) L D 01/14/19 08:50 Hct 20.4 % (35.3-44.9) L 01/14/19 08:50 Plt Count 25 K/mcL (140-400) L* 01/14/19 08:50 MPV 13.9 fL (9.4-12.4) H 01/14/19 08:50 Immature Gran % 4.3 % (0-4) H 01/14/19 00:24 0.0 K/mcL (1.6-8.9) L 01/14/19 08:50 0.4 K/mcL (0.6-4.6) L 01/14/19 08:50 Marked Decrease (Normal) L 01/14/19 08:50 Present (Not Present) A 01/14/19 08:50 Present (Not Present) A 01/14/19 00:24 1+ (Not Present) A 01/13/19 10:26 1+ (Not Present) A 01/13/19 10:26 1+ (Not Present) A 01/14/19 00:24 PT 18.1 Seconds (9.4-12.1) H 01/14/19 00:24 Sodium 134 mEq/L (136-145) L 01/13/19 10:26 Potassium 3.0 mEq/L (3.5-5.1) L 01/14/19 08:50 Chloride 109 mEq/L (98-107) H 01/14/19 00:24 Carbon Dioxide 18 mEq/L (23-29) L 01/14/19 08:50 BUN 50 mg/dL (8-23) H 01/14/19 08:50 1.40 mg/dL (0.60-1.20) H 01/14/19 08:50 Est GFR ( Amer) 45 (> 60) L 01/14/19 08:50 Est GFR (Non-Af Amer) 38 (> 60) L 01/14/19 08:50 36 (6-26) H 01/14/19 08:50 Glucose 180 mg/dL (70-105) H 01/14/19 08:50 POC Glucose 170 mg/dL (70-99) H 01/14/19 00:17 Lactic Acid 2.9 mmol/L (0.5-2.2) H 01/14/19 08:50 Calcium 7.1 mg/dL (8.6-10.3) L 01/14/19 08:50 Iron 44 mcg/dL (50-170) L 01/13/19 12:05 92 mg/dL (203-362) L 01/13/19 12:05 > 1500 ng/mL (10-120) H 01/13/19 12:05 0.3 mg/dL (0.0-0.2) H 01/13/19 12:05 AST 45 Units/L (13-39) H 01/14/19 00:24 139 Units/L (140-271) L 01/13/19 12:05 5.4 g/dL (6.4-8.9) L 01/14/19 00:24 2.3 g/dL (3.5-5.7) L 01/14/19 00:24 0.7 (1.1-2.2) L 01/14/19 00:24 Vitamin B12 105 pg/mL (250-1100) L 01/13/19 12:05 Turbid (Clear) A 01/13/19 23:41 30 mg/dL (Neg-Trace) H 01/13/19 23:41 Trace (Negative) H 01/13/19 23:41 Small (Negative) H 01/13/19 23:41 5-15 per hpf (0-3) H 01/13/19 23:41 Ur Squamous Epith Cells Many per lpf (None-Few) H 01/13/19 23:41 Amorphous Sediment Many (Few) H 01/13/19 23:41 Moderate per hpf (None-Few) H 01/13/19 23:41 Ur Culture Indicated? YES (NO) A 01/13/19 23:41 Enterobacteriac sp PCR DETECTED (Not Detect) A 01/13/19 19:27 E. coli (PCR) DETECTED (Not Detect) A 01/13/19 19:27 Direct Antiglob Test +/- Weak Positive (Negative) A 01/13/19 19:26 MTS Gel Crossmatch See Detail 01/13/19 12:05 - Microbiology Findings Microbiology Findings: Microbiology, Last 48 Hours 01/13/19 19:26 Blood Culture - Preliminary Peripheral Venipuncture Gram Negative To 01/13/19 19:27 Blood Culture - Preliminary Peripheral Venipuncture Gram Negative To 01/13/19 23:41 Urine Culture - Preliminary Urine,Clean Catch Culture is incubating. - Clinical Findings Intake & Output: Intake & Output 01/13/19 01/14/19 01/14/19 23:59 07:59 15:59 Intake Total 1360 / 1360 2520 / 2655 135 / 2655 Output Total 450 / 450 Balance 1360 / 1360 2070 / 2205 135 / 2205 Weight 61.7 kg - Attending Attestation I examined this patient and my medical decision-making was reviewed with the Resident Physician. I agree with the documented findings, disposition and treatment plan as described except to the extent set forth below. Patient seen and examined. Labs, radiology, chart personally reviewed. Agree with resident's history and physical, assessment, plan with following comments: [employer]: Patient follows commands, Pulmonary: Acceptable oxygenation and ventilation and possible pneumonia and her condition could deteriorate and I asked her about code status and she is full code. This is very concerning and ABG was done with evidence of respiratory alkalosis as well as significant hypoxia for that reason patient was placed on noninvasive ventilation and she accepted that and have explained to the family at the bedside as much as possible if she can tolerate this method of helping her hypoxia that would be preferable. Patient has thrombocytopenia and that is always risk of bleeding during intubation. Cardiovascular: Patient in shock and they suspect this could be multifactorial from anemia and also septic shock. Anemia most likely is chronic in nature. GI: Nutrition per dietary and GI prophylaxis per routine and patient is NPO because her respiratory status could deteriorate quickly. Heme: DVT prophylaxis per routine and hematology consulted and replacing blood products. ID: Continue antibiotics and plan to de-escalation and change to meropenum. Because of her immunocompromised condition infectious disease consultation requested. Will consider CT abdomen and pelvis for the source of infection. Renal; urine out put and renal funtion reviewed. She has received volume with blood transfusion and even though her blood pressure is low have diuresis in between. Her respiratory status is a limitation or fluid resuscitation for septic shock. Endorcine: blood glucose is monitored Lines: all lines checked and no evidence of infections Skin: skin care to prevent pressure ulcers per nursing routine care I spent 40 min of Critical Care time with this patient. It involved decision making of high complexity to assess, manipulate, and support vital organ system failure and/or to prevent further life threatening deterioration of the patient's condition. The time involved in the performance of separately reportable procedures was not counted toward critical care time.
[2019-01-14] MEDS ORDERED: Furosemide 40 MG/4 ML VIAL IVP ONE ×2 (07:19→10:24)
[2019-01-14] MEDS ORDERED: Ipratropium/Albuterol Neb 3 ML IH PRN (07:19)
[2019-01-14] MEDS: Pyridoxine (B-6) 50 MG TABLET PO SCH (07:56)
[2019-01-14] MEDS: Cyanocobalamin (B-12) 1,000 MCG TABLET PO SCH (07:56)
[2019-01-14] MEDS ORDERED: Piperacillin/Tazobactam 3.375 GM in 0.9 % Sodium Chloride Mini Bag 100 ML IVPB SCH (08:00)
[2019-01-14] MEDS ORDERED: Pyridoxine (B-6) 50 MG TABLET PO SCH (09:00)
[2019-01-14] MEDS ORDERED: Cyanocobalamin (B-12) 1,000 MCG TABLET PO SCH (09:00)
[2019-01-14 09:06] LABS: Lymphocytes # 0.4 K/mcL (0.6-4.6); Lymphocytes % 88.9 %; Mean Corpuscular Volume 85.4 fL (83.0-100.0)
[2019-01-14 09:07] LABS: Hematocrit 20.4 % (35.3-44.9); Mean Corpuscular HGB Conc 34.3 g/dL (31.6-35.5); Mean Corpuscular Hemoglobin 29.3 pg (28.0-33.3); Mean Platelet Volume 13.9 fL (9.4-12.4); Monocytes % 4.4 %; Red Blood Count 2.39 M/mcL (3.82-4.97); Red Cell Distribution Width 13.4 % (11.5-14.5); Segmented Neutrophils % 6.7 %
[2019-01-14 09:09] LABS: Acinetobacter baumannii by PCR Not Detected (Not Detect); Candida albicans by PCR Not Detected (Not Detect); Candida glabrata by PCR Not Detected (Not Detect); Candida krusei by PCR Not Detected (Not Detect); Candida parapsilosis by PCR Not Detected (Not Detect); Candida tropicalis by PCR Not Detected (Not Detect); Enterobacter cloacae Cmplx PCR Not Detected (Not Detect); Enterobacteriaceae by PCR DETECTED (Not Detect); Enterococcus by PCR Not Detected (Not Detect); Escherichia coli by PCR DETECTED (Not Detect); Klebsiella oxytoca by PCR Not Detected (Not Detect); Klebsiella pneumoniae by PCR Not Detected (Not Detect); Proteus by PCR Not Detected (Not Detect); Pseudomonas aeruginosa by PCR Not Detected (Not Detect); Serratia marcescens by PCR Not Detected (Not Detect); Staphylococcus aureus by PCR Not Detected (Not Detect); Staphylococcus by PCR Not Detected (Not Detect); Streptococcus agalactiae(B)PCR Not Detected (Not Detect); Streptococcus by PCR Not Detected (Not Detect); Streptococcus pneumoniae PCR Not Detected (Not Detect); Streptococcus pyogenes (A) PCR Not Detected (Not Detect); blaKPC Carbapenem-Resist Gene Not Detected (Not Detect)
[2019-01-14 09:12] LABS: Platelet Count 25 K/mcL (140-400)
[2019-01-14 09:32] LABS: Calcium 7.1 mg/dL (8.6-10.3)
[2019-01-14] MEDS ORDERED: 0.9 % Sodium Chloride 250 ML ONE (09:40)
[2019-01-14 09:47] LABS: Large Platelets Present (Not Present); Platelet Estimate Marked Decrease (Normal)
[2019-01-14] MEDS: Norepinephrine 8 MG in D5% in Water 250 ML IVC SCH ×2 (11:40→20:23)
--- NOTE | 2019-01-14 13:05 | Oncology Inp Progress Note ---
<Katiana Zuniga L - Last Filed: 01/14/19 16:44> Date of Encounter: 01/14/19 Time of Encounter: 12:30 (1) Anemia Current Visit: Yes Status: Acute Assessment and plan: Normocytic, Normochromic anemia in the setting of MDS s/p decitabine Not responding well to outpatient PRBC transfusion Denies s/s bleeding No evidence of hemolysis given low LDH and normal indirect bili, apple 1+ B12 severely deficient at 105, s/p B12, started oral supplementation (avoid IM/SQ with low plt count) Folate/Iron replete Plan: PRBC x4 units ordered--Hgb responding, 7 this AM with another unit to transfuse Monitor for response to PRBC Blood smear consistent with MDS Qualifiers: Anemia type: B12 deficiency Vitamin B12 deficiency anemia type: unspecified B12 deficiency Qualified Code(s): D51.9 - Vitamin B12 deficiency anemia, unspecified (2) Myelodysplasia (myelodysplastic syndrome) Current Visit: Yes Status: Chronic Assessment and plan: Anemia, macrocytosis ringed sideroblasts, suspected MDS. Progressive pancytopenia, started decitabine, d1-d5 q 28 day schedule start C1 12/20/18 (3) Severe neutropenia Current Visit: Yes Status: Acute Assessment and plan: ANC 0 Plan: In the setting of septic shock with E. Coli bacteremia Start neupogen 300 mcg daily until ANC >1.5k Neutropenic precautions (4) Septic shock Current Visit: Yes Status: Acute Assessment and plan: Patient developed septic shock overnight requiring transfer to ICU with levophed support Blood cultures x2 positive for E. coli, she has had prolonged neutropenia, UA + with culture pending ID recommendations appreciated, she will likely need abdominal imaging to assess for source Currently on Meropenum/Vanc/Levaquin--further recs per ID Oxymask 15L, tachypneic, O2 saturation 89%, patient wishes to remain full code Start neupogen 300 mcg daily until ANC >1.5k CT chest: Large masslike consolidation in the left upper lobe, mediastinal lymph node and several scattered spiculated nodules are highly suspicious for malignancy. Multifocal pneumonia remains a possibility but is considered less likely. Oncology: Subj Interval history: Ms. Olguin is resting in bed. Overnight, she developed acute fever during PRBC transfusion. She continued to be hypotensive and tachycardic. Following 3 boluses, patient developed respiratory distress. She was transferred to ICU and placed on levophed. Blood cultures x2 are showing E. Coli. Patient has daughter and son in law at bedside. She is conversant. She currently denies pain, SOB, nausea, vomiting, diarrhea or constipation. BP 98/56 on levophed. HR around 115. - Constitutional General appearance: cooperative, no acute distress, thin, no febrile - Head Head exam: Present: atraumatic - ENT ENT exam: Present: mucous membranes dry, normal oropharynx - Respiratory Respiratory exam: Present: wheezes. Absent: respiratory distress - Cardiovascular Cardiovascular exam: Present: RRR, tachycardia - GI/Abdominal GI/Abdominal exam: Present: normal bowel sounds, soft. Absent: tenderness - Additional comments: mc catheter with clear yellow urine - Extremities Exam Extremities exam: Present: normal inspection. Absent: calf tenderness - Neurological Exam Neurological exam: Present: alert, oriented X3, no focal deficits, strengths equal and symetr throughout - Psychiatric Psychiatric exam: Present: normal affect, normal mood - Skin Skin exam: Present: dry, warm Additional comments: multiple scattered bruises, pale/bennett skin color Oncology: Obj Data - Labs CBC & Chem 7: 01/14/19 08:50 01/14/19 08:50 Consult Discharge Plan - Plan Referrals: Dennys Sabillon DO [Primary Care Provider] - Inpatient Charges Provider: Dr. Radha Duenas <Anca Duenas - Last Filed: 01/14/19 17:15> Date of Encounter: 01/14/19 Oncology: Subj Interval history: Sepsis, hypotension needing pressors. E coli in cx. Neutropenia/fever episode during PRBC. Neupogen strated today. S/P PRBC Plan d.w patient. I examined this patient and my medical decision-making was reviewed with the Advanced Practice Nurse, Katiana Zuniga. I agree with the documented findings, disposition and treatment plan as described except to the extent set forth below. Oncology: Obj Data - Labs CBC & Chem 7: 01/14/19 08:50 01/14/19 08:50 Inpatient Charges Provider: Dr. Radha Duenas Follow up - Inpatient: [id number]
[2019-01-14 13:23] LABS: VBG Ionized Calcium 0.96 mmol/L (1.15-1.35)
[2019-01-14] MEDS: Potassium Chloride 40 MEQ/200 ML BAG IVPB PRN ×2 (13:29→20:28)
[2019-01-14 13:47] LABS: Magnesium 1.7 mg/dL (1.6-2.6); Phosphorous 3.6 mg/dL (2.7-4.5)
[2019-01-14 13:56] LABS: ABG Base Excess -3 mEq/L (-2 to 3); ABG HCO3 20 mEq/L (21-27); ABG PCO2 26 mmHg (35-45); ABG PH 7.49 pH Units (7.32-7.45); ABG PO2 < 17 mmHg (85-104); ABG TCO2 20 mEq/L (20-26)
[2019-01-14] MEDS ORDERED: 0.9 % Sodium Chloride 500 ML ONE (14:04)
[2019-01-14 14:23] LABS: ABG Base Excess -4 mEq/L (-2 to 3); ABG HCO3 18 mEq/L (21-27); ABG Oxygen Saturation 72 % (95-98); ABG PCO2 23 mmHg (35-45); ABG PH 7.51 pH Units (7.32-7.45); ABG PO2 33 mmHg (85-104); ABG TCO2 19 mEq/L (20-26)
--- NOTE | 2019-01-14 15:10 | Infectious Disease Consult ---
Infectious Disease-Consult - Encounter Date/Time Date of Encounter: 01/14/19 Time of Encounter: 15:04 - Data of Consult Patient: new to practice Reason for consult: septic shock/pneumonia in immunocompromised patient Consult date: 01/14/19 Requesting Physician: Caryn Luna MD Primary Care Provider: Dennys Sabillon, - HPI HPI: Patient is a 68-year-old woman who was directly admitted to the hospital for severe anemia 01/13/2019, we are consulted 01/14/2019 for septic shock and acute respiratory failure. Patient is a 68-year-old woman with past medical significant for hypertension, hyperlipidemia, myelodysplastic syndrome who follows up with hematology/oncology and has had multiple admissions in the past for anemia most recently in July 2018. Patient apparently was being seen with hematology as an outpatient and she was found to have a hemoglobin of 4.7. started decitabine, d1-d5 q 28 day schedule start C1 12/20/18 Since admission, patient became febrile with a MAXIMUM TEMPERATURE of 103.1 Fahrenheit tachycardic, tachypneic and hypotensive. Patient is now in the ICU requiring pressors. Labs revealed WBC of 0.2 with ANC of 0. Hemoglobin 4.3 and platelets of 24. Patient looks like she is going into acute kidney injury with a BUN of 50 creatinine 1.4. A urinalysis was obtained which showed some pyuria and culture has been started. Patient blood cultures on 01/13/2019 2 out of 2 sets positive for gram-negative rods PCR picked up Escherichia coli. A respiratory infectious panel was obtained which came back negative. A CT chest revealed large masslike consolidation in the left upper lobe mediastinal lymphadenopathy adenopathy and several scattered spiculated nodules I have is suspicious for malignancy. Multifocal pneumonia remains a possibility but is considered less likely. Currently patient requiring high FiO2 demands. Patient is on a BiPAP. She is also on pressors. Patient denies any chest pain or sputum production. No URI symptoms. No headaches no neck stiffness. Patient denies any urinary symptoms. Patient denies any abdominal pain but on physical exam she has significant guarding in the abdominal area especially left upper and left lower quadrant. No obvious perirectal abscess. No joint effusion. No rash. - ROS Review of Systems: 10 point review of systems done, negative other for what is mentioned in the history of present illness - Results CBC & Chem 7: 05/03/19 08:50 01/14/19 08:50 - Exam Vitals: Temp Pulse Resp BP Pulse Ox 98 F 120 30 99/51 88 01/14/19 14:28 01/14/19 14:28 01/14/19 14:28 01/14/19 14:28 01/14/19 14:28 Exam: Gen. patient appears toxic appears ill in significant distress requiring BiPAP on pressors HEAD: Normocephalic atraumatic EYES: PERRLA, EOMI, no conjunctival hemorrhage, sclera anicteric ENT: Mucous membranes dry, no oral thrush. No tooth abscess noted no oral lesions NECK: Supple. No meningeal signs. No masses LUNGS: Chest expanding symmetrically. Lungs sounds audible but course both lung gregorio. No wheezing, no rhonchi CV: RRR, S1S2, tachycardic ABDOMEN: Soft, tenderness left upper quadrant and left lower quadrant with some guarding no peritoneal signs hypoactive bowel sounds BACK: No CVA tenderness. Normal inspection. No tenderness over the spine EXTREMITY: Adequate perfusion. No joint effusion. SKIN: Normal color. No rash. But patient looks sandoval. I was concerned for jaundice but her bilirubin is fine NEURO: Awake alert oriented 3. No obvious focal deficit PSYCH: Anxious, in mild distress Atorvastatin Calcium [Lipitor] 80 mg PO QPM 10/20/17 [History] Cholecalciferol (Vitamin D3) [Vitamin D3] 2,000 unit PO Q48H 10/20/17 [History] Nitroglycerin [Nitrostat] 0.4 mg SL Q5M PRN 05/04/18 [History] Pyridoxine (B-6) [Vitamin B-6] 50 mg PO DAILY #30 tablet 05/04/18 [Rx] Levothyroxine [Synthroid] 75 mcg PO QAM 07/02/18 [History] Metoprolol XL (24 HR) Succ [Toprol Xl] 12.5 mg PO HS 07/30/18 [History] Magic Mouthwash [Magic Mouthwash BLM] 10 ml PO QID PRN #240 ml 01/11/19 [Rx] Allergy/AdvReac Type Severity Reaction Status Date / Time No Known Allergies Allergy Verified 01/13/19 17:39 - Assessment and Plan (1) Septic shock Current Visit: Yes Status: Acute Secondary to bacteremia with Escherichia coli and possible pneumonia SNOMED Code(s): 40587145 (2) E coli bacteremia Current Visit: Yes Status: Acute Blood cultures 2/2 sets positive 5/2; likely source neutropenic colitis Urinary is possible but less likely patient currently on levofloxacin Repeat blood cultures Get CT abdomen/pelvis with contrast Continue levofloxacin Continue vancomycin Start Zosyn; CrCl around 37 so no need to adjust the dosing. We will continue with every 8 hours dosing Duration of treatment depends on the clinical picture SNOMED Code(s): 741307928169 (3) Abdominal pain Current Visit: Yes Status: Acute Concern for neutropenic colitis/typhlitis Get CT abdomen and pelvis with oral contrast Consider starting antifungal clinically patient does not do well Continue Zosyn for now Qualifiers: Abdominal location: left upper quadrant Qualified Code(s): R10.12 - Left upper quadrant pain SNOMED Code(s): 08795299 (4) Acute respiratory failure Current Visit: Yes Status: Acute Etiology not clear Pneumonia versus malignancy versus atypical infection Patient is at high risk because she has myelodysplastic syndrome with ANC of 0 for almost a month now We will discuss with the pulmonary team if we need to get fungal serologies or if the [facility] her what the plan is We will treat as a HCAP for now with vanc/zosyn/levaquin Respiratory infectious panel was negative Check urine legionella and pneumococcal antigen Check crypto antigen Check histo antigen and galactomannan MRSA screen Qualifiers: Respiratory failure complication: hypoxia Qualified Code(s): J96.01 - Acute respiratory failure with hypoxia SNOMED Code(s): 42788189 (5) Severe neutropenia Current Visit: Yes Status: Acute ANC 0 since 01/07/2019 Neutropenia with ANC < 1500 since June 2018 Receiving Neupogen Hematology following; discussed with the hematology team SNOMED Code(s): 734061094 (6) Myelodysplasia (myelodysplastic syndrome) Current Visit: Yes Status: Chronic SNOMED Code(s): 811653169 (7) Pancytopenia Current Visit: Yes Status: Acute SNOMED Code(s): 222885695 Past Med Surg Social Fam HX - Past Medical History Medical history: hyperlipidemia, hypertension, thyroid disease, other Additional medical history: heart murmur. SMOKER. HIGH CHOLESTEROL. HYPOTHYROIDISM. ANEMIA. diverticulosis. MDS Psychiatric history: depression - Past Surgical History Surgical History: cataract Additional surgical history: BRAIN SURGERY. TUBAL LIGATION. D & C. colon oscopy - egd - Social History Smoking Status: Former smoker Packs per day: less than 1/2 pack Smokeless Tobacco Status: No Alcohol use: none Drug use: none - Family History Mother Family Member Ethnicity: Non- Living Status: Hx Family Cardiac Disorders: No Hx Family Respiratory Disorders: No Hx Family Cancer: Yes Hx Family GI Disorders: No Hx Family Endocrine Disorder: Yes (diabetes) Hx Family Neuromuscular Disorders: No Hx Family Neurologic Disorders: No Hx Family HEENT Disorders: No Hx Family Autoimmune Disorders: No Consult Discharge Plan - Plan Referrals: Dennys Sabillon DO [Primary Care Provider] -
[2019-01-14] MEDS ORDERED: Meropenem 1,000 MG in Water for inj. (sterile) 20 ML 10 ML IVP SCH (16:00)
[2019-01-14] MEDS ORDERED: Ondansetron 4 MG/2 ML VIAL ONE (17:23)
[2019-01-14] MEDS ORDERED: Ondansetron 4 MG/2 ML VIAL IVP PRN (17:23)
[2019-01-14] MEDS ORDERED: Vancomycin 500 MG in 0.9 % Sodium Chloride Mini Bag 100 ML IVPB SCH (19:00)
[2019-01-14 19:49] LABS: Hematocrit 23.7 % (35.3-44.9); Mean Corpuscular Volume 82.9 fL (83.0-100.0); Red Blood Count 2.86 M/mcL (3.82-4.97)
[2019-01-14 19:50] LABS: VBG Ionized Calcium 0.95 mmol/L (1.15-1.35)
[2019-01-14 19:52] LABS: Hemoglobin 8.4 g/dL (11.5-15.4); Lymphocytes # 0.3 K/mcL (0.6-4.6); Mean Corpuscular HGB Conc 35.4 g/dL (31.6-35.5); Mean Corpuscular Hemoglobin 29.4 pg (28.0-33.3); Mean Platelet Volume 14.3 fL (9.4-12.4); Monocytes % 3.3 %; Red Cell Distribution Width 13.4 % (11.5-14.5); Segmented Neutrophils % 6.7 %
[2019-01-14 20:08] LABS: Platelet Count 27 K/mcL (140-400)
[2019-01-14 20:17] LABS: Magnesium 2.4 mg/dL (1.6-2.6); Potassium 3.4 mEq/L (3.5-5.1)
[2019-01-14 20:37] LABS: Burr Cells 1+ (Not Present); Hypochromasia Present (Not Present); Large Platelets Present (Not Present); Platelet Estimate Marked Decrease (Normal)
[2019-01-14 20:38] LABS: Microcytosis Present (Not Present); Poikilocytosis 1+ (Not Present)
[2019-01-14 20:39] LABS: ABG Base Excess -6 mEq/L (-2 to 3); ABG HCO3 17 mEq/L (21-27); ABG Oxygen Saturation 96 % (95-98); ABG PCO2 21 mmHg (35-45); ABG PH 7.49 pH Units (7.32-7.45); ABG PO2 71 mmHg (85-104); ABG TCO2 17 mEq/L (20-26); Blood Gas PEEP 6 cm H2O
[2019-01-14] MEDS ORDERED: Sodium Bicarbonate 50 MEQ/50 ML VIAL IVP ONE (21:05)
[2019-01-14] MEDS: Levofloxacin 750 MG/150 ML 750 MG/150 ML BAG IVPB SCH (23:13)
[2019-01-14] MEDS ORDERED: Levofloxacin 500 MG/100 ML 500 MG/100 ML BAG IVPB SCH (23:45)
[2019-01-15] MEDS: Piperacillin/Tazobactam 3.375 GM in 0.9 % Sodium Chloride Mini Bag 100 ML IVPB SCH ×3 (03:28→21:18)
[2019-01-15 03:57] LABS: VBG Ionized Calcium 1.03 mmol/L (1.15-1.35)
[2019-01-15 03:58] LABS: Mean Corpuscular HGB Conc 35.8 g/dL (31.6-35.5); Red Blood Count 2.55 M/mcL (3.82-4.97)
[2019-01-15 04:00] LABS: Hematocrit 21.2 % (35.3-44.9); Hemoglobin 7.6 g/dL (11.5-15.4); Lymphocytes # 0.2 K/mcL (0.6-4.6); Lymphocytes % 91.7 %; Mean Corpuscular Hemoglobin 29.8 pg (28.0-33.3); Mean Corpuscular Volume 83.1 fL (83.0-100.0); Monocytes % 8.3 %; Red Cell Distribution Width 13.8 % (11.5-14.5)
[2019-01-15 04:02] LABS: Platelet Count 15 K/mcL (140-400)
[2019-01-15 04:18] LABS: Calcium 7.7 mg/dL (8.6-10.3); Potassium 3.6 mEq/L (3.5-5.1)
[2019-01-15 04:32] LABS: Anisocytosis 1+ (Not Present); Microcytosis Present (Not Present); Platelet Estimate Decreased (Normal); Poikilocytosis 1+ (Not Present)
[2019-01-15 05:00] LABS: Magnesium 2.3 mg/dL (1.6-2.6); Phosphorous 3.2 mg/dL (2.7-4.5)
[2019-01-15] MEDS: Norepinephrine 8 MG in D5% in Water 250 ML IVC SCH ×2 (05:20→17:02)
[2019-01-15] MEDS: Potassium Chloride 40 MEQ/200 ML BAG IVPB PRN ×3 (05:40→18:29)
[2019-01-15] MEDS: Magic Mouthwash 10 ML UD Cup PO SCH ×3 (07:42→15:13)
[2019-01-15] MEDS: Cyanocobalamin (B-12) 1,000 MCG TABLET PO SCH (07:42)
[2019-01-15] MEDS: Pyridoxine (B-6) 50 MG TABLET PO SCH (07:42)
--- NOTE | 2019-01-15 09:32 | Oncology Inp Progress Note ---
Date of Encounter: 01/15/19 Time of Encounter: 08:00 (1) Pancytopenia Current Visit: Yes Status: Acute Assessment and plan: MDS, with SF3B1 mutation (favorable prognosis), s/p decitabine C1 for anemia requiring frequent transfusion support, leucopenia and thrombocytopenia. She failed Epo/neupogen epogen in the past. Hospitalized for severe anemia, pancytopenia since 01/13/19. E coli spsis, pneumonia, possible pyelonephritis on levafloxacin/zosyn. Septic shock/respiratory failure on pressor support and BiPap. Labs AM reviewed. s/p 3PRBC, 1 plasma/2 plt Overnight. On B12 PO. Prognosis guarded. CT findings reviewed. Plan disscused with patient's /pt this AM Oncology: Subj Interval history: SOB, patient is tired from not getting good sleep. Denies pain - Constitutional Exam: respiratory distress on BiPap - Head Head exam: Present: atraumatic, normal inspection - Eye Eye exam: Present: sclera anicteric - ENT Additional comments: mucositis, soreness in the mouth - Neck Additional comments: no adenopathy/swelling - Respiratory Respiratory exam: Present: CTAB, respiratory distress - Cardiovascular Cardiovascular exam: Present: +S1, +S2, tachycardia - GI/Abdominal GI/Abdominal exam: Present: normal bowel sounds, soft - Extremities Exam Extremities exam: Present: normal inspection Oncology: Obj Data - Labs CBC & Chem 7: 01/15/19 03:40 01/15/19 03:40 Consult Discharge Plan - Plan Referrals: Dennsy Sabillon DO [Primary Care Provider] - Inpatient Charges Provider: Dr. Radha Duenas Follow up - Inpatient: [id number]
--- NOTE | 2019-01-15 09:56 | Pulmonology Progress Note ---
Date of Encounter: 01/15/19 Time of Encounter: 08:00 Assessment and Plan (1) Acute respiratory failure Current Visit: Yes Status: Acute Patient has severe hypoxic respiratory failure patient was alkalotic respiratory alkalosis contributing to the picture ration is acceptable oxygenation and ventilation will have a high threshold for intubation as patient is immunocompromised if that is worsening ventilation and perfusion mismatch will attempt noninvasive ventilation before endotracheal intubation. All questions were answered family was at bedside. Qualifiers: Respiratory failure complication: hypoxia Qualified Code(s): J96.01 - Acute respiratory failure with hypoxia (2) Septic shock Current Visit: Yes Status: Acute Patient septic shock slowly getting better patient's still on levophed for pressor support . Secondary to possible pyelonephritis for Escherichia coli bacteremia, possible pneumonia contributing to the picture waiting for fungal serologies. We will trend lactate. (3) E coli bacteremia Current Visit: Yes Status: Acute Most likely source is urinary tract infection. We will repeat blood cultures appreciate infectious disease input to continue the broad-spectrum antibiotics. (4) Pancytopenia Current Visit: Yes Status: Acute Secondary to myelodysplastic syndrome patient the same of blood products and platelets will repeat the labs is no evidence of active bleeding. (5) Myelodysplasia (myelodysplastic syndrome) Current Visit: Yes Status: Chronic Patient has myelodysplastic syndrome followed by oncology appreciate recommendations. (6) DVT prophylaxis Current Visit: No Status: Acute SCDs.. Subjective Principal diagnosis: Acute hypoxic respiratory failure with septic shock Interval history: Patient feels slightly better wants to go home i told her blood pressure is too low and she is dependent on this blood pressure medication will take at least 3- 4 days used before we can think about discharge provided the hospital course goes well without any complications. Patient denies any chest pain chest tightness denies any palpitation or syncope patient feels tired and fatigued. Objective PUL Vital signs: Last Vital Signs Temp 98.0 F 01/15/19 07:21 Pulse 118 01/15/19 09:00 Resp 24 01/15/19 09:00 BP 109/60 01/15/19 09:00 Pulse Ox 95 01/15/19 09:00 General appearance: alert Effort: mildly labored Auscultation: bilateral: rales (Bilateral scattered) Cardiovascular: regular rate and rhythm Gastrointestinal: normoactive bowel sounds Extremities: no edema Musculoskeletal: no deformities normal mental status, non-focal exam mood appropriate Results - Laboratory Findings CBC and BMP: 01/15/19 03:40 01/15/19 03:40 ABG ABG pH 7.49 pH Units (7.32-7.45) H 01/14/19 20:36 ABG pCO2 21 mmHg (35-45) L 01/14/19 20:36 ABG pO2 71 mmHg (85-104) L 01/14/19 20:36 ABG O2 Saturation 96 % (95-98) 01/14/19 20:36 PT/INR, D-dimer PT 18.1 Seconds (9.4-12.1) H 01/14/19 00:24 Abnormal lab findings: Abnormal lab results WBC 0.2 K/mcL (4.3-11.1) L* 01/15/19 03:40 RBC 2.55 M/mcL (3.82-4.97) L 01/15/19 03:40 Hgb 7.6 g/dL (11.5-15.4) L 01/15/19 03:40 Hct 21.2 % (35.3-44.9) L 01/15/19 03:40 MCV 82.9 fL (83.0-100.0) L 01/14/19 19:30 MCHC 35.8 g/dL (31.6-35.5) H 01/15/19 03:40 Plt Count 15 K/mcL (140-400) L* 01/15/19 03:40 MPV 14.3 fL (9.4-12.4) H 01/14/19 19:30 Immature Gran % 4.3 % (0-4) H 01/14/19 00:24 0.0 K/mcL (1.6-8.9) L 01/14/19 19:30 0.2 K/mcL (0.6-4.6) L 01/15/19 03:40 Decreased (Normal) L 01/15/19 03:40 Present (Not Present) A 01/14/19 19:30 Present (Not Present) A 01/14/19 19:30 1+ (Not Present) A 01/15/19 03:40 1+ (Not Present) A 01/15/19 03:40 Present (Not Present) A 01/15/19 03:40 1+ (Not Present) A 01/14/19 19:30 Acanthocytes (Spur) 1+ (Not Present) A 01/14/19 19:30 PT 18.1 Seconds (9.4-12.1) H 01/14/19 00:24 ABG pH 7.49 pH Units (7.32-7.45) H 01/14/19 20:36 ABG pCO2 21 mmHg (35-45) L 01/14/19 20:36 ABG pO2 71 mmHg (85-104) L 01/14/19 20:36 ABG HCO3 17 mEq/L (21-27) L 01/14/19 20:36 ABG Total CO2 17 mEq/L (20-26) L 01/14/19 20:36 ABG O2 Saturation 72 % (95-98) L 01/14/19 14:17 ABG Base Excess -6 mEq/L (-2 to 3) L 01/14/19 20:36 Sodium 134 mEq/L (136-145) L 01/13/19 10:26 Potassium 3.4 mEq/L (3.5-5.1) L 01/14/19 19:30 Chloride 109 mEq/L (98-107) H 01/14/19 00:24 Carbon Dioxide 22 mEq/L (23-29) L 01/15/19 03:40 BUN 42 mg/dL (8-23) H 01/15/19 03:40 1.24 mg/dL (0.60-1.20) H 01/15/19 03:40 Est GFR ( Amer) 52 (> 60) L 01/15/19 03:40 Est GFR (Non-Af Amer) 43 (> 60) L 01/15/19 03:40 34 (6-26) H 01/15/19 03:40 Glucose 127 mg/dL (70-105) H 01/15/19 03:40 POC Glucose 121 mg/dL (70-99) H 01/15/19 05:37 Lactic Acid 2.5 mmol/L (0.5-2.2) H 01/14/19 13:00 Calcium 7.7 mg/dL (8.6-10.3) L 01/15/19 03:40 Venous Ioniz Calcium 1.03 mmol/L (1.15-1.35) L 01/15/19 03:54 Iron 44 mcg/dL (50-170) L 01/13/19 12:05 92 mg/dL (203-362) L 01/13/19 12:05 > 1500 ng/mL (10-120) H 01/13/19 12:05 0.3 mg/dL (0.0-0.2) H 01/13/19 12:05 AST 45 Units/L (13-39) H 01/14/19 00:24 139 Units/L (140-271) L 01/13/19 12:05 5.4 g/dL (6.4-8.9) L 01/14/19 00:24 2.3 g/dL (3.5-5.7) L 01/14/19 00:24 0.7 (1.1-2.2) L 01/14/19 00:24 Vitamin B12 105 pg/mL (250-1100) L 01/13/19 12:05 Turbid (Clear) A 01/13/19 23:41 30 mg/dL (Neg-Trace) H 01/13/19 23:41 Trace (Negative) H 01/13/19 23:41 Small (Negative) H 01/13/19 23:41 5-15 per hpf (0-3) H 01/13/19 23:41 Ur Squamous Epith Cells Many per lpf (None-Few) H 01/13/19 23:41 Amorphous Sediment Many (Few) H 01/13/19 23:41 Moderate per hpf (None-Few) H 01/13/19 23:41 Ur Culture Indicated? YES (NO) A 01/13/19 23:41 Enterobacteriac sp PCR DETECTED (Not Detect) A 01/13/19 19: E. coli (PCR) DETECTED (Not Detect) A 01/13/19 19:27 Direct Antiglob Test +/- Weak Positive (Negative) A 01/13/19 19: MTS Gel Crossmatch See Detail 01/13/19 12:05 - Microbiology Findings Microbiology Findings: Microbiology, Last 48 Hours 01/13/19 23:41 Urine Culture - Final Urine,Clean Catch No growth. 01/13/19 19:26 Blood Culture - Preliminary Peripheral Venipuncture Gram Negative To 01/13/19 19:27 Blood Culture - Preliminary Peripheral Venipuncture Gram Negative To - Clinical Findings Intake & Output: Intake & Output 01/14/19 01/15/19 01/15/19 23:59 07:59 15:59 Intake Total 1268 / 4810 1118 / 1118 Output Total 350 / 4050 825 / 825 Balance 918 / 760 293 / 293 Weight 62.9 kg 62.9 kg Consult Discharge Plan - Plan Referrals: Dennys Sabillon DO [Primary Care Provider] -
[2019-01-15 12:03] LABS: VBG Ionized Calcium 1.11 mmol/L (1.15-1.35)
[2019-01-15 12:10] LABS: Hematocrit 20.9 % (35.3-44.9); Hemoglobin 7.4 g/dL (11.5-15.4); Immature Platelets 15.5 % (1.1-6.1); Mean Corpuscular HGB Conc 35.4 g/dL (31.6-35.5); Mean Corpuscular Hemoglobin 29.5 pg (28.0-33.3); Mean Corpuscular Volume 83.3 fL (83.0-100.0); Mean Platelet Volume 13.8 fL (9.4-12.4); Red Blood Count 2.51 M/mcL (3.82-4.97); Red Cell Distribution Width 13.9 % (11.5-14.5)
[2019-01-15 12:11] LABS: Lymphocytes # 0.3 K/mcL (0.6-4.6)
[2019-01-15 12:19] LABS: Platelet Count 15 K/mcL (140-400)
[2019-01-15 12:28] LABS: Platelet Estimate Marked Decrease (Normal)
[2019-01-15 12:29] LABS: Anisocytosis 1+ (Not Present); Macrocytosis Present (Not Present); Poikilocytosis 1+ (Not Present)
[2019-01-15] MEDS ORDERED: 0.9 % Sodium Chloride 500 ML ONE (14:38)
[2019-01-15 18:48] LABS: Hematocrit 20.4 % (35.3-44.9); Lymphocytes # 0.2 K/mcL (0.6-4.6); Lymphocytes % 90.5 %; Mean Corpuscular HGB Conc 34.3 g/dL (31.6-35.5); Mean Corpuscular Hemoglobin 29.3 pg (28.0-33.3); Mean Corpuscular Volume 85.4 fL (83.0-100.0); Mean Platelet Volume 12.7 fL (9.4-12.4); Monocytes % 9.5 %; Red Blood Count 2.39 M/mcL (3.82-4.97); Red Cell Distribution Width 14.1 % (11.5-14.5)
[2019-01-15 18:52] LABS: Platelet Count 15 K/mcL (140-400)
[2019-01-15 19:06] LABS: Burr Cells 1+ (Not Present); Hypochromasia Present (Not Present); Platelet Estimate Decreased (Normal)
[2019-01-15 19:07] LABS: Poikilocytosis 1+ (Not Present)
[2019-01-16] MEDS: Piperacillin/Tazobactam 3.375 GM in 0.9 % Sodium Chloride Mini Bag 100 ML IVPB SCH ×3 (03:24→18:04)
[2019-01-16] MEDS: Norepinephrine 8 MG in D5% in Water 250 ML IVC SCH ×2 (03:28→15:37)
[2019-01-16 03:52] LABS: Red Cell Distribution Width 14.5 % (11.5-14.5)
[2019-01-16 03:53] LABS: Hematocrit 20.3 % (35.3-44.9); Hemoglobin 6.9 g/dL (11.5-15.4); Lymphocytes # 0.3 K/mcL (0.6-4.6); Lymphocytes % 86.7 %; Mean Corpuscular Hemoglobin 29.4 pg (28.0-33.3); Mean Corpuscular Volume 86.4 fL (83.0-100.0); Mean Platelet Volume 14.4 fL (9.4-12.4); Monocytes % 6.7 %; Red Blood Count 2.35 M/mcL (3.82-4.97); Segmented Neutrophils % 6.6 %
[2019-01-16 04:11] LABS: BUN/Creatinine Ratio 33 (6-26); Blood Urea Nitrogen 31 mg/dL (8-23); Calcium 7.7 mg/dL (8.6-10.3); Carbon Dioxide 21 mEq/L (23-29); Chloride 107 mEq/L (98-107); Glucose 82 mg/dL (70-105); Magnesium 2.4 mg/dL (1.6-2.6); Osmolality,Calculated 288 (280-300); Phosphorous 3.2 mg/dL (2.7-4.5); Sodium 136 mEq/L (136-145); eGFR For Non-African Americans 59 (> 60)
[2019-01-16 04:15] LABS: Platelet Count 15 K/mcL (140-400)
[2019-01-16 04:16] LABS: Platelet Estimate Marked Decrease (Normal)
[2019-01-16] MEDS ORDERED: 0.9 % Sodium Chloride 250 ML ONE (05:27)
[2019-01-16 08:33] LABS: ABG Base Excess -3 mEq/L (-2 to 3); ABG HCO3 21 mEq/L (21-27); ABG Oxygen Saturation 87 % (95-98); ABG PCO2 32 mmHg (35-45); ABG PH 7.43 pH Units (7.32-7.45); ABG PO2 50 mmHg (85-104); ABG TCO2 22 mEq/L (20-26)
[2019-01-16] MEDS: Cyanocobalamin (B-12) 1,000 MCG TABLET PO SCH (08:42)
[2019-01-16] MEDS: Pyridoxine (B-6) 50 MG TABLET PO SCH (08:42)
--- NOTE | 2019-01-16 08:43 | Oncology Inp Progress Note ---
Date of Encounter: 01/16/19 Time of Encounter: 08:00 (1) Pancytopenia Current Visit: Yes Status: Acute Assessment and plan: MDS, with SF3B1 mutation (favorable prognosis), s/p decitabine C1 for anemia requiring frequent transfusion support, leucopenia and thrombocytopenia. Pancytopenia since 01/13/19. E coli spsis, pneumonia, possible pyelonephritis on levafloxacin/zosyn, vanc. Septic shock/respiratory failure on pressor support and BiPap, hypoxemia, resp alkalosis. Unable to wean off levophed. s/p PRBC, plt. No clinical bleeding. Blood pdts today. On neupogen Plan reviewed with ICU staff/patient bed side Oncology: Subj Interval history: Sob on oxygen, sat 95% - Constitutional General appearance: thin Exam: respiratory distress - Eye Eye exam: Present: sclera anicteric - ENT ENT exam: Present: mucous membranes dry - Respiratory Respiratory exam: Present: CTAB - Cardiovascular Cardiovascular exam: Present: +S1, +S2 - GI/Abdominal GI/Abdominal exam: Present: soft Additional comments: non tender - Extremities Exam Extremities exam: Present: normal inspection - Neurological Exam Neurological exam: Present: alert, oriented X3, no focal deficits - Skin Additional comments: left upper ext bruising, warmth Oncology: Obj Data - Labs CBC & Chem 7: 01/16/19 03:30 01/16/19 03:30 Consult Discharge Plan - Plan Referrals: Dennys Sabillon DO [Primary Care Provider] - Inpatient Charges Provider: Dr. Radha Duenas Follow up - Inpatient: [id number]
[2019-01-16] MEDS ORDERED: Dexmedetomidine HCl 400 MCG/100 ML MLS IVC ONE (09:00)
[2019-01-16] MEDS: Dexmedetomidine HCl 400 MCG/100 ML MLS IVC SCH (09:10)
[2019-01-16] MEDS: Magic Mouthwash 10 ML UD Cup PO SCH ×3 (09:17→19:56)
--- NOTE | 2019-01-16 15:32 | Pulmonology Progress Note ---
Date of Encounter: 01/16/19 Time of Encounter: 08:00 Assessment and Plan (1) Acute respiratory failure Current Visit: Yes Status: Acute Patient has severe hypoxic respiratory failure patient was alkalotic respiratory alkalosis contributing to the picture ration is acceptable oxygenation and ventilation will have a high threshold for intubation as patient is immunocompromised if that is worsening ventilation and perfusion mismatch will attempt noninvasive ventilation before endotracheal intubation. All questions were answered family was at bedside. 01/16 patient was not tolerating BiPAP and given option to continue with BiPAP versus mechanical ventilation patient opted for a trial of BiPAP patient has high risk for mechanical ventilation. Endotracheal intubation. Given her immunocompromised status with pneumonia we will give a trial of noninvasive ventilation before intubating her. Patient is stable on BiPAP with adequate gas exchange and oxygenation the blood gas looks mixed venous gas. Qualifiers: Respiratory failure complication: hypoxia Qualified Code(s): J96.01 - Acute respiratory failure with hypoxia (2) Septic shock Current Visit: Yes Status: Acute Patient septic shock slowly getting better patient's still on levophed for pressor support . Secondary to possible pyelonephritis for Escherichia coli bacteremia, possible pneumonia contributing to the picture waiting for fungal serologies. We will trend lactate. 01/16 lactate was normal patient is in septic shock levo fed requirements are stab le to continue supportive care. (3) E coli bacteremia Current Visit: Yes Status: Acute Most likely source is urinary tract infection. We will repeat blood cultures appreciate infectious disease input to continue the broad-spectrum antibiotics. (4) Pancytopenia Current Visit: Yes Status: Acute Secondary to myelodysplastic syndrome patient the same of blood products and platelets will repeat the labs is no evidence of active bleeding. 01/16 patient is on GM-CSF neupogen still not much bone marrow recovery oncology following. (5) Myelodysplasia (myelodysplastic syndrome) Current Visit: Yes Status: Chronic Patient has myelodysplastic syndrome followed by oncology appreciate recommenda tions. (6) DVT prophylaxis Current Visit: No Status: Acute SCDs.. Subjective Principal diagnosis: Acute hypoxic respiratory failure with septic shock Interval history: Patient feels slightly better wants to go home i told her blood pressure is too low and she is dependent on this blood pressure medication will take at least 3- 4 days used before we can think about discharge provided the hospital course goes well without any complications. Patient denies any chest pain chest tightness denies any palpitation or syncope patient feels tired and fatigued. 5/5 patient says she is feeling a lot better did not like her BiPAP therapy at told her if she does not tolerate BiPAP therapy we have no other choice but to intubate and mechanically ventilated patient agreed for a trial of noninvasive ventilation. Objective PUL Vital signs: Last Vital Signs Temp 99.0 F 01/16/19 15:00 Pulse 114 01/16/19 12:00 Resp 32 01/16/19 12:00 BP 103/51 01/16/19 12:00 Pulse Ox 95 01/16/19 12:00 Effort: mildly labored Auscultation: bilateral: other (bilateral scattered crackles ) Cardiovascular: regular rate and rhythm Extremities: edema normal mental status, non-focal exam, pupils equal and round, CN II-XII normal Results - Laboratory Findings CBC and BMP: 01/16/19 03:30 01/16/19 03:30 ABG ABG pH 7.43 pH Units (7.32-7.45) 01/16/19 08:25 ABG pCO2 32 mmHg (35-45) L 01/16/19 08:25 ABG pO2 50 mmHg (85-104) L* 01/16/19 08:25 ABG O2 Saturation 87 % (95-98) L 01/16/19 08:25 PT/INR, D-dimer PT 18.1 Seconds (9.4-12.1) H 01/14/19 00:24 Abnormal lab findings: Abnormal lab results WBC 0.3 K/mcL (4.3-11.1) L* 01/16/19 03:30 RBC 2.35 M/mcL (3.82-4.97) L 01/16/19 03:30 Hgb 6.9 g/dL (11.5-15.4) L 01/16/19 03:30 Hct 20.3 % (35.3-44.9) L 01/16/19 03:30 MCV 82.9 fL (83.0-100.0) L 01/14/19 19:30 MCHC 35.8 g/dL (31.6-35.5) H 01/15/19 03:40 Plt Count 15 K/mcL (140-400) L* 01/16/19 03:30 MPV 14.4 fL (9.4-12.4) H 01/16/19 03:30 Immature Gran % 4.3 % (0-4) H 01/14/19 00:24 0.0 K/mcL (1.6-8.9) L 01/16/19 03:30 0.3 K/mcL (0.6-4.6) L 01/16/19 03:30 Marked Decrease (Normal) L 01/16/19 03:30 Present (Not Present) A 01/14/19 19:30 Immature Plt Fraction 15.5 % (1.1-6.1) H 01/15/19 12:00 Present (Not Present) A 01/15/19 18:14 1+ (Not Present) A 01/15/19 18:14 1+ (Not Present) A 01/15/19 12:00 Present (Not Present) A 01/15/19 03:40 Present (Not Present) A 01/15/19 12:00 1+ (Not Present) A 01/15/19 18:14 Acanthocytes (Spur) 1+ (Not Present) A 01/15/19 12:00 PT 18.1 Seconds (9.4-12.1) H 01/14/19 00:24 869 mg/dL (169-393) H* 01/15/19 12:56 ABG pH 7.49 pH Units (7.32-7.45) H 01/14/19 20:36 ABG pCO2 32 mmHg (35-45) L 01/16/19 08:25 ABG pO2 50 mmHg (85-104) L* 01/16/19 08:25 ABG HCO3 17 mEq/L (21-27) L 01/14/19 20:36 ABG Total CO2 17 mEq/L (20-26) L 01/14/19 20:36 ABG O2 Saturation 87 % (95-98) L 01/16/19 08:25 ABG Base Excess -3 mEq/L (-2 to 3) L 01/16/19 08:25 Sodium 134 mEq/L (136-145) L 01/13/19 10:26 Potassium 3.4 mEq/L (3.5-5.1) L 01/14/19 19:30 Chloride 109 mEq/L (98-107) H 01/14/19 00:24 Carbon Dioxide 21 mEq/L (23-29) L 01/16/19 03:30 BUN 31 mg/dL (8-23) H 01/16/19 03:30 1.24 mg/dL (0.60-1.20) H 01/15/19 03:40 Est GFR ( Amer) 52 (> 60) L 01/15/19 03:40 Est GFR (Non-Af Amer) 59 (> 60) L 01/16/19 03:30 33 (6-26) H 01/16/19 03:30 Glucose 127 mg/dL (70-105) H 01/15/19 03:40 POC Glucose 121 mg/dL (70-99) H 01/15/19 05:37 Lactic Acid 2.5 mmol/L (0.5-2.2) H 01/14/19 13:00 Calcium 7.7 mg/dL (8.6-10.3) L 01/16/19 03:30 Venous Ioniz Calcium 1.10 mmol/L (1.15-1.35) L 01/16/19 03:49 Iron 44 mcg/dL (50-170) L 01/13/19 12:05 92 mg/dL (203-362) L 01/13/19 12:05 > 1500 ng/mL (10-120) H 01/13/19 12:05 0.3 mg/dL (0.0-0.2) H 01/13/19 12:05 AST 45 Units/L (13-39) H 01/14/19 00:24 139 Units/L (140-271) L 01/13/19 12:05 5.4 g/dL (6.4-8.9) L 01/14/19 00:24 2.3 g/dL (3.5-5.7) L 01/14/19 00:24 0.7 (1.1-2.2) L 01/14/19 00:24 Vitamin B12 105 pg/mL (250-1100) L 01/13/19 12:05 Turbid (Clear) A 01/13/19 23:41 30 mg/dL (Neg-Trace) H 01/13/19 23:41 Trace (Negative) H 01/13/19 23:41 Small (Negative) H 01/13/19 23:41 5-15 per hpf (0-3) H 01/13/19 23:41 Ur Squamous Epith Cells Many per lpf (None-Few) H 01/13/19 23:41 Amorphous Sediment Many (Few) H 01/13/19 23:41 Moderate per hpf (None-Few) H 01/13/19 23:41 Ur Culture Indicated? YES (NO) A 01/13/19 23:41 Enterobacteriac sp PCR DETECTED (Not Detect) A 01/13/19 19:27 E. coli (PCR) DETECTED (Not Detect) A 01/13/19 19:27 Direct Antiglob Test +/- Weak Positive (Negative) A 01/13/19 19:26 MTS Gel Crossmatch See Detail 01/13/19 19:26 - Microbiology Findings Microbiology Findings: Microbiology, Last 48 Hours 01/13/19 19:27 Blood Culture - Final Peripheral Venipuncture Escherichia coli 01/13/19 19:26 Blood Culture - Final Peripheral Venipuncture Escherichia coli 01/15/19 10:38 Sputum Culture - Preliminary Sputum 01/15/19 09:55 Blood Culture - Preliminary Peripheral Venipuncture Culture is incubating and being continuously mo nitored for growth. Final report to follow. 01/15/19 09:50 Blood Culture - Preliminary Peripheral Venipuncture Culture is incubating and being continuously monitored for growth. Final report to follow. 01/13/19 23:41 Urine Culture - Final Urine,Clean Catch No growth. - Clinical Findings Intake & Output: Intake & Output 01/15/19 01/16/19 01/16/19 23:59 07:59 15:59 Intake Total 1000 / 2536 440 / 890 450 / 890 Output Total 650 / 1775 400 / 650 250 / 650 Balance 350 / 761 40 / 240 200 / 240 Weight 66.3 kg Consult Discharge Plan - Plan Referrals: Dennys Sabillon DO [Primary Care Provider] - Critical Care Time Critical Care Time: Yes Total Critical Care Time: 40 Attestation: I saw and evaluated this patient and my medical decision-making was reviewed with the Resident Physician. I agree with the documented findings, disposition and treatment plan as described except to the extent set forth below. We independently had [id number] contact with the patient I spent 40 minutes of Critical Care time with this patient. It involved decision making of high complexity to assess, manipulate, and support vital organ system failure and/or to prevent further life threatening deterioration of the patient's condition. The time involved in the performance of separately reportable procedures was not counted toward critical care time.
[2019-01-16] MEDS: Levofloxacin 750 MG/150 ML 750 MG/150 ML BAG IVPB SCH (21:32)
[2019-01-17 03:12] LABS: A.galactomannan Ag Index 0.89
[2019-01-17] MEDS: Piperacillin/Tazobactam 3.375 GM in 0.9 % Sodium Chloride Mini Bag 100 ML IVPB SCH ×3 (03:44→18:06)
[2019-01-17 04:11] LABS: Hemoglobin 7.8 g/dL (11.5-15.4); Red Cell Distribution Width 15.3 % (11.5-14.5)
[2019-01-17 04:13] LABS: Hematocrit 22.6 % (35.3-44.9); Lymphocytes # 0.4 K/mcL (0.6-4.6); Mean Corpuscular HGB Conc 34.5 g/dL (31.6-35.5); Monocytes # 0.1 K/mcL (0.0-1.3); Monocytes % 11.3 %; Red Blood Count 2.69 M/mcL (3.82-4.97); Segmented Neutrophils % 5.7 %
[2019-01-17 04:17] LABS: Platelet Count 11 K/mcL (140-400)
[2019-01-17 04:27] LABS: Calcium 6.9 mg/dL (8.6-10.3); Magnesium 2.5 mg/dL (1.6-2.6); Phosphorous 4.3 mg/dL (2.7-4.5); Potassium 3.9 mEq/L (3.5-5.1)
[2019-01-17 04:39] LABS: Platelet Estimate Marked Decrease (Normal)
[2019-01-17] MEDS ORDERED: 0.9 % Sodium Chloride 250 ML ONE (04:50)
[2019-01-17] MEDS: Norepinephrine 8 MG in D5% in Water 250 ML IVC SCH ×5 (05:10→20:15)
[2019-01-17] MEDS ORDERED: Hydrocortisone Sodium Succ 100 MG/2 ML VIAL IVP ONE (05:24)
[2019-01-17] MEDS ORDERED: 0.9 % Sodium Chloride 250 ML IVC ONE (05:27)
--- NOTE | 2019-01-17 08:10 | Pulmonology Progress Note ---
<LaurenTyler more M - Last Filed: 01/17/19 10:07> Date of Encounter: 01/17/19 Objective PUL Vital signs: Last Vital Signs Temp 97.7 F 01/17/19 08:14 Pulse 110 01/17/19 09:00 Resp 26 01/17/19 09:00 BP 126/52 01/17/19 09:00 Pulse Ox 98 01/17/19 09:00 Results - Laboratory Findings CBC and BMP: 01/17/19 03:55 01/17/19 04:00 ABG ABG pH 7.43 pH Units (7.32-7.45) 01/16/19 08:25 ABG pCO2 32 mmHg (35-45) L 01/16/19 08:25 ABG pO2 50 mmHg (85-104) L* 01/16/19 08:25 ABG O2 Saturation 87 % (95-98) L 01/16/19 08:25 PT/INR, D-dimer PT 18.1 Seconds (9.4-12.1) H 01/14/19 00:24 Abnormal lab findings: Abnormal lab results WBC 0.5 K/mcL (4.3-11.1) L* D 01/17/19 03:55 RBC 2.69 M/mcL (3.82-4.97) L 01/17/19 03:55 Hgb 7.8 g/dL (11.5-15.4) L 01/17/19 03:55 Hct 22.6 % (35.3-44.9) L 01/17/19 03:55 MCV 82.9 fL (83.0-100.0) L 01/14/19 19:30 MCHC 35.8 g/dL (31.6-35.5) H 01/15/19 03:40 RDW 15.3 % (11.5-14.5) H 01/17/19 03:55 Plt Count 11 K/mcL (140-400) L* 01/17/19 03:55 MPV 14.4 fL (9.4-12.4) H 01/16/19 03:30 Immature Gran % 4.3 % (0-4) H 01/14/19 00:24 0.0 K/mcL (1.6-8.9) L 01/17/19 03:55 0.4 K/mcL (0.6-4.6) L 01/17/19 03:55 Marked Decrease (Normal) L 01/17/19 03:55 Present (Not Present) A 01/14/19 19:30 Immature Plt Fraction 15.5 % (1.1-6.1) H 01/15/19 12:00 Present (Not Present) A 01/15/19 18:14 1+ (Not Present) A 01/15/19 18:14 1+ (Not Present) A 01/15/19 12:00 Present (Not Present) A 01/15/19 03:40 Present (Not Present) A 01/15/19 12:00 1+ (Not Present) A 01/15/19 18:14 Acanthocytes (Spur) 1+ (Not Present) A 01/15/19 12:00 PT 18.1 Seconds (9.4-12.1) H 01/14/19 00:24 869 mg/dL (169-393) H* 01/15/19 12:56 ABG pH 7.49 pH Units (7.32-7.45) H 01/14/19 20:36 ABG pCO2 32 mmHg (35-45) L 01/16/19 08:25 ABG pO2 50 mmHg (85-104) L* 01/16/19 08:25 ABG HCO3 17 mEq/L (21-27) L 01/14/19 20:36 ABG Total CO2 17 mEq/L (20-26) L 01/14/19 20:36 ABG O2 Saturation 87 % (95-98) L 01/16/19 08:25 ABG Base Excess -3 mEq/L (-2 to 3) L 01/16/19 08:25 Sodium 132 mEq/L (136-145) L 01/17/19 04:00 Potassium 3.4 mEq/L (3.5-5.1) L 01/14/19 19:30 Chloride 109 mEq/L (98-107) H 01/14/19 00:24 Carbon Dioxide 19 mEq/L (23-29) L 01/17/19 04:00 BUN 40 mg/dL (8-23) H 01/17/19 04:00 1.24 mg/dL (0.60-1.20) H 01/15/19 03:40 Est GFR ( Amer) 54 (> 60) L 01/17/19 04:00 Est GFR (Non-Af Amer) 45 (> 60) L 01/17/19 04:00 33 (6-26) H 01/17/19 04:00 Glucose 120 mg/dL (70-105) H 01/17/19 04:00 POC Glucose 114 mg/dL (70-99) H 01/16/19 23:03 Lactic Acid 2.5 mmol/L (0.5-2.2) H 01/14/19 13:00 Calcium 6.9 mg/dL (8.6-10.3) L 01/17/19 04:00 Venous Ioniz Calcium 1.00 mmol/L (1.15-1.35) L 01/17/19 04:07 Iron 44 mcg/dL (50-170) L 01/13/19 12:05 92 mg/dL (203-362) L 01/13/19 12:05 > 1500 ng/mL (10-120) H 01/13/19 12:05 0.3 mg/dL (0.0-0.2) H 01/13/19 12:05 AST 45 Units/L (13-39) H 01/14/19 00:24 139 Units/L (140-271) L 01/13/19 12:05 5.4 g/dL (6.4-8.9) L 01/14/19 00:24 2.3 g/dL (3.5-5.7) L 01/14/19 00:24 0.7 (1.1-2.2) L 01/14/19 00:24 Vitamin B12 105 pg/mL (250-1100) L 01/13/19 12:05 Turbid (Clear) A 01/13/19 23:41 30 mg/dL (Neg-Trace) H 01/13/19 23:41 Trace (Negative) H 01/13/19 23:41 Small (Negative) H 01/13/19 23:41 5-15 per hpf (0-3) H 01/13/19 23:41 Ur Squamous Epith Cells Many per lpf (None-Few) H 01/13/19 23:41 Amorphous Sediment Many (Few) H 01/13/19 23:41 Moderate per hpf (None-Few) H 01/13/19 23:41 Ur Culture Indicated? YES (NO) A 01/13/19 23:41 Enterobacteriac sp PCR DETECTED (Not Detect) A 01/13/19 19:27 E. coli (PCR) DETECTED (Not Detect) A 01/13/19 19:27 Direct Antiglob Test +/- Weak Positive (Negative) A 01/13/19 19:26 MTS Gel Crossmatch See Detail 01/13/19 19:26 - Microbiology Findings Microbiology Findings: Microbiology, Last 48 Hours 01/13/19 19:27 Blood Culture - Final Peripheral Venipuncture Escherichia coli 01/13/19 19:26 Blood Culture - Final Peripheral Venipuncture Escherichia coli 01/15/19 10:38 Sputum Culture - Preliminary Sputum 01/15/19 09:55 Blood Culture - Preliminary Peripheral Venipuncture Culture is incubating and being continuously monitored for growth. Final report to follow. 01/15/19 09:50 Blood Culture - Preliminary Peripheral Venipuncture Culture is incubating and being continuously monitored for growth. Final report to follow. 01/13/19 23:41 Urine Culture - Final Urine,Clean Catch No growth. - Clinical Findings Intake & Output: Intake & Output 01/16/19 01/17/19 01/17/19 23:59 07:59 15:59 Intake Total 850.9 / 2050.1 370.3 / 984.2 613.9 / 984.2 Output Total 150 / 800 200 / 275 75 / 275 Balance 700.9 / 1250.1 170.3 / 709.2 538.9 / 709.2 Weight 65.7 kg Consult Discharge Plan - Plan Referrals: Dennys Sabillon DO [Primary Care Provider] - - Attending Attestation I examined this patient and my medical decision-making was reviewed with the Resident Physician. I agree with the documented findings, disposition and treatment plan as described except to the extent set forth below. Patient seen and examined. Labs, radiology, chart personally reviewed. Agree with resident's history and physical, assessment, plan with following comments: MANAGER BENEFIT: Patient follows commands, Pulmonary: Acceptable oxygenation and ventilation and transition to high flow FIO2 and will be gentle with hydration and IVF Cardiovascular: and she is in shock GI: Nutrition per dietary and GI prophylaxis per routine Heme: DVT prophylaxis per routine and need hematology regarding palliative ID: Continue antibiotics and plan to de-escalation and ID is following up Renal; urine out put and renal funtion reviewed Endorcine: blood glucose is monitored and start on steroid Lines: all lines checked and no evidence of infections Skin: skin care to prevent pressure ulcers per nursing routine care Prognosis is poor I spent 32 min of Critical Care time with this patient. It involved decision making of high complexity to assess, manipulate, and support vital organ system failure and/or to prevent further life threatening deterioration of the patient's condition. The time involved in the performance of separately reportable procedures was not counted toward critical care time. <Heather Graff N - Last Filed: 01/17/19 16:22> Date of Encounter: 01/17/19 Time of Encounter: 08:10 Assessment and Plan (1) Acute respiratory failure Current Visit: Yes Status: Acute Secondary to pneumonia. Patient has had worsening respiratory failure over the last several days, with increasing need for supplemental oxygen to maintain appropriate saturation. On evaluation, patient is on BiPAP therapy, with appropriate oxygenation and ventilation. Most recent ABG performed on 01/16/2019 demonstrated pH 7.43, PCO2 32, PO2 50, and HCO3 21. Chest x-ray performed this morning demonstrated pulmonary edema with interval progression of diffuse left lung airspace disease, favored to represent pneumonia, despite ongoing antimicrobial therapy. The patient is tolerating noninvasive ventilation with appropriate oxygen saturation, she continues to be high risk for continued decline, ultimately requiring intubation. Due to the severity of her disease and involvement of multiple organ systems, patient's overall prognosis is poor. CODE STATUS has been repeatedly discussed with the patient throughout her hospitalization, and she has maintained that she wishes to be full code. During discussion with oncology team, patient did state that she did not want intubation; however, she followed that with the statement "I want to live". - Continue noninvasive respiratory support, pressors, and antimicrobial therapy as detailed below. - Palliative care consult placed for goals of care discussion and assistance with CODE STATUS/resuscitation wishes. Qualifiers: Respiratory failure complication: hypoxia Qualified Code(s): J96.01 - Acute respiratory failure with hypoxia (2) Septic shock Current Visit: Yes Status: Acute Unclear etiology. Concern for possible pyelonephritis versus Escherichia coli bacteremia versus pneumonia. Patient did have an elevated lactic acid 5.9 on 01/14/2019, which has since resolved. She continues to be tachycardic, with heart rate 90-110bpm, and is continuing to require levofed for pressor support. - Continue pressor support with the Levophed, with weaning per protocol as tolerated. - Continue close clinical and telemetry monitoring. - Antimicrobial therapy as detailed below. (3) Pneumonia Current Visit: Yes Status: Acute Unknown infectious organism. Chest x-ray performed this morning is concerning for an for progression of diffuse left lung airspace disease favored to represent pneumonia. - Continue current antibiotic therapy of vancomycin, Levaquin, and Zosyn. - Legionella and strep pneumo urine antigens pending. - Appreciate infectious disease recommendations regarding this problem. Qualifiers: Pneumonia type: due to unspecified organism Laterality: unspecified laterality Lung location: unspecified part of lung Qualified Code(s): J18.9 - Pneumonia, unspecified organism (4) E coli bacteremia Current Visit: Yes Status: Acute Escherichia coli bacteremia as evidenced by 2/2 sets of blood cultures obtained on 01/13/2019. - Repeat blood cultures obtained on 01/15/2019 are negative to date. Continue to monitor until results are finalized. - Continue current antibiotic regimen per ID team. (5) Pancytopenia Current Visit: Yes Status: Acute Secondary to myelodysplastic syndrome. Patient has had progressive decline in platelets throughout her admission, with platelet count of 11 on morning laboratory studies. Patient does not have any apparent signs of bleeding at this time. - 1 unit platelets ordered and transfused this morning - Continue neupogen per heme/onc recommendations. - Neutropenic precautions. - Continue to monitor and trend daily laboratory studies. (6) Myelodysplasia (myelodysplastic syndrome) Current Visit: Yes Status: Chronic History of myelodysplasia, followed by hematology/oncology. Will continue management per their recommendations. (7) Hypothyroidism Current Visit: No Status: Chronic - Continue home medication of synthroid 75mcg daily. Qualifiers: Hypothyroidism type: unspecified Qualified Code(s): E03.9 - Hypothyroidism, unspecified (8) Tobacco abuse Current Visit: Yes Status: Chronic History of tobacco abuse. - Smoking cessation counselling provided. - Nicotine patch TD PRN cravings. (9) DVT prophylaxis Current Visit: Yes Status: Acute - SCDs. Subjective Principal diagnosis: Acute hypoxic respiratory failure with septic shock Interval history: Ms. Olguin was seen and evaluated at the bedside this morning. She states that she is feeling unwell in general, though she does feel better than she did yesterday. She states that she feels her breathing has improved a little. She does endorse pain in her "backside", which she attributes to her prolonged hospitalization. Nursing staff reports that she is continued to require high doses of Levophed to maintain appropriate blood pressure. Patient denies any acute complaints or concerns at this time. Objective PUL Vital signs: Last Vital Signs Temp 98.5 F 01/17/19 05:15 Pulse 104 01/17/19 07:00 Resp 23 01/17/19 07:00 BP 101/46 01/17/19 07:00 Pulse Ox 97 01/17/19 07:00 GENERAL: Ill-appearing adult female in no acute distress. HEENT: Atraumatic and normocephalic. BiPAP mask in place. CARDIOVASCULAR: Regular rate and rhythm. S1 and S2 present. RESPIRATORY: Diffusely decreased breath sounds bilaterally with increased work of breathing evident. GASTROINTESTINAL: Abdomen is soft with hypoactive bowel sounds. Patient expresses diffuse tenderness to abdominal palpation. EXTREMITIES: No clubbing, cyanosis, or edema. SKIN: Warm, dry, and intact. NEUROLOGIC: Alert and oriented x3. Patient is cooperative with exam and answers questions appropriately. No apparent focal deficits. PSYCHIATRIC: Appropriate mood and affect. Results - Laboratory Findings CBC and BMP: 01/17/19 03:55 01/17/19 04:00 ABG ABG pH 7.43 pH Units (7.32-7.45) 01/16/19 08:25 ABG pCO2 32 mmHg (35-45) L 01/16/19 08:25 ABG pO2 50 mmHg (85-104) L* 01/16/19 08:25 ABG O2 Saturation 87 % (95-98) L 01/16/19 08:25 PT/INR, D-dimer PT 18.1 Seconds (9.4-12.1) H 01/14/19 00:24 Abnormal lab findings: Abnormal lab results WBC 0.5 K/mcL (4.3-11.1) L* D 01/17/19 03:55 RBC 2.69 M/mcL (3.82-4.97) L 01/17/19 03:55 Hgb 7.8 g/dL (11.5-15.4) L 01/17/19 03:55 Hct 22.6 % (35.3-44.9) L 01/17/19 03:55 MCV 82.9 fL (83.0-100.0) L 01/14/19 19:30 MCHC 35.8 g/dL (31.6-35.5) H 01/15/19 03:40 RDW 15.3 % (11.5-14.5) H 01/17/19 03:55 Plt Count 11 K/mcL (140-400) L* 01/17/19 03:55 MPV 14.4 fL (9.4-12.4) H 01/16/19 03:30 Immature Gran % 4.3 % (0-4) H 01/14/19 00:24 0.0 K/mcL (1.6-8.9) L 01/17/19 03:55 0.4 K/mcL (0.6-4.6) L 01/17/19 03:55 Marked Decrease (Normal) L 01/17/19 03:55 Present (Not Present) A 01/14/19 19:30 Immature Plt Fraction 15.5 % (1.1-6.1) H 01/15/19 12:00 Present (Not Present) A 01/15/19 18:14 1+ (Not Present) A 01/15/19 18:14 1+ (Not Present) A 01/15/19 12:00 Present (Not Present) A 01/15/19 03:40 Present (Not Present) A 01/15/19 12:00 1+ (Not Present) A 01/15/19 18:14 Acanthocytes (Spur) 1+ (Not Present) A 01/15/19 12:00 PT 18.1 Seconds (9.4-12.1) H 01/14/19 00:24 869 mg/dL (169-393) H* 01/15/19 12:56 ABG pH 7.49 pH Units (7.32-7.45) H 01/14/19 20:36 ABG pCO2 32 mmHg (35-45) L 01/16/19 08:25 ABG pO2 50 mmHg (85-104) L* 01/16/19 08:25 ABG HCO3 17 mEq/L (21-27) L 01/14/19 20:36 ABG Total CO2 17 mEq/L (20-26) L 01/14/19 20:36 ABG O2 Saturation 87 % (95-98) L 01/16/19 08:25 ABG Base Excess -3 mEq/L (-2 to 3) L 01/16/19 08:25 Sodium 132 mEq/L (136-145) L 01/17/19 04:00 Potassium 3.4 mEq/L (3.5-5.1) L 01/14/19 19:30 Chloride 109 mEq/L (98-107) H 01/14/19 00:24 Carbon Dioxide 19 mEq/L (23-29) L 01/17/19 04:00 BUN 40 mg/dL (8-23) H 01/17/19 04:00 1.24 mg/dL (0.60-1.20) H 01/15/19 03:40 Est GFR ( Amer) 54 (> 60) L 01/17/19 04:00 Est GFR (Non-Af Amer) 45 (> 60) L 01/17/19 04:00 33 (6-26) H 01/17/19 04:00 Glucose 120 mg/dL (70-105) H 01/17/19 04:00 POC Glucose 114 mg/dL (70-99) H 01/16/19 23:03 Lactic Acid 2.5 mmol/L (0.5-2.2) H 01/14/19 13:00 Calcium 6.9 mg/dL (8.6-10.3) L 01/17/19 04:00 Venous Ioniz Calcium 1.00 mmol/L (1.15-1.35) L 01/17/19 04:07 Iron 44 mcg/dL (50-170) L 01/13/19 12:05 92 mg/dL (203-362) L 01/13/19 12:05 > 1500 ng/mL (10-120) H 01/13/19 12:05 0.3 mg/dL (0.0-0.2) H 01/13/19 12:05 AST 45 Units/L (13-39) H 01/14/19 00:24 139 Units/L (140-271) L 01/13/19 12:05 5.4 g/dL (6.4-8.9) L 01/14/19 00:24 2.3 g/dL (3.5-5.7) L 01/14/19 00:24 0.7 (1.1-2.2) L 01/14/19 00:24 Vitamin B12 105 pg/mL (250-1100) L 01/13/19 12:05 Turbid (Clear) A 01/13/19 23:41 30 mg/dL (Neg-Trace) H 01/13/19 23:41 Trace (Negative) H 01/13/19 23:41 Small (Negative) H 01/13/19 23:41 5-15 per hpf (0-3) H 01/13/19 23:41 Ur Squamous Epith Cells Many per lpf (None-Few) H 01/13/19 23:41 Amorphous Sediment Many (Few) H 01/13/19 23:41 Moderate per hpf (None-Few) H 01/13/19 23:41 Ur Culture Indicated? YES (NO) A 01/13/19 23:41 Enterobacteriac sp PCR DETECTED (Not Detect) A 01/13/19 19:27 E. coli (PCR) DETECTED (Not Detect) A 01/13/19 19:27 Direct Antiglob Test +/- Weak Positive (Negative) A 01/13/19 19:26 MTS Gel Crossmatch See Detail 01/13/19 19:26 - Microbiology Findings Microbiology Findings: Microbiology, Last 48 Hours 01/13/19 19:27 Blood Culture - Final Peripheral Venipuncture Escherichia coli 01/13/19 19:26 Blood Culture - Final Peripheral Venipuncture Escherichia coli 01/15/19 10:38 Sputum Culture - Preliminary Sputum 01/15/19 09:55 Blood Culture - Preliminary Peripheral Venipuncture Culture is incubating and being continuously monitored for growth. Final report to follow. 01/15/19 09:50 Blood Culture - Preliminary Peripheral Venipuncture Culture is incubating and being continuously monitored for growth. Final report to follow. 01/13/19 23:41 Urine Culture - Final Urine,Clean Catch No growth. - Clinical Findings Intake & Output: Intake & Output 01/16/19 01/17/19 01/17/19 23:59 07:59 15:59 Intake Total 850.9 / 2050.1 370.3 / 370.3 Output Total 150 / 800 200 / 200 Balance 700.9 / 1250.1 170.3 / 170.3 Weight 65.7 kg
[2019-01-17] MEDS: Dexmedetomidine HCl 400 MCG/100 ML MLS IVC SCH (08:22)
[2019-01-17] MEDS: Pyridoxine (B-6) 50 MG TABLET PO SCH (08:22)
[2019-01-17] MEDS: Cyanocobalamin (B-12) 1,000 MCG TABLET PO SCH (08:23)
--- NOTE | 2019-01-17 09:42 | Infectious Disease Progress No ---
ID Progress Note Date of Encounter: 01/17/19 Time of Encounter: 09:40 - Subjective Subjective: Patient seen and examined. Weekend notes reviewed. Events noted. Patient states she feels a little bit better today. Denies fevers, chills, or rigors. Denies headache or neck pain. States she feels generally fatigued and weak. Denies congestion, earache, or sore throat. Denies chest pain. Reports shortness of breath and moist productive cough with bloody/yellow sputum. Lenin es nausea, vomiting, diarrhea, or constipation. States she has not had a bowel movement since last week. Reports a generally poor appetite. Salazar catheter remains patent. Denies abdominal pain or back pain. Denies joint or extremity pain. States her mouth is dry and sore. Denies skin lesions or rashes. - Objective CBC & Chem 7: 01/18/19 03:55 01/18/19 03:55 - Exam Vitals: Temp Pulse Resp BP Pulse Ox 97.7 F 110 26 126/52 98 01/17/19 08:14 01/17/19 09:00 01/17/19 09:00 01/17/19 09:00 01/17/19 09:00 Exam: Head: Atraumatic, normal inspection, normocephalic. Eye: EOMI, PERRLA, no scleral icterus noted. ENT: Mucous membranes moist. No odontogenic infection noted. Neck: Normal inspection, no meningismus. Respiratory: Coarse crackles throughout. Tachypnea noted on high flow O2. No respiratory distress, rhonchi, or wheezes noted. Cardiovascular: Regular rhythm, tachycardic, S1 and S2 audible. No murmurs, rubs, or gallops. GI: Soft, nondistended, normal bowel sounds. Tenderness noted with palpation. Left CVAT noted. Salazar draining clear dark yellow urine. Extremities: No joint swelling, pedal edema, or tenderness noted. Neurological: Alert, oriented 3, no focal deficits. Psychiatric: normal affect, normal mood. Skin: Dry, intact, warm. Normal color. Petechial rash noted to the trunk. - Assessment and Plan (1) Septic shock Current Visit: Yes Status: Acute The patient has tachycardia, tachypnea, fever, and leukopenia with hypotension requiring vasopressors. Likely secondary to E. coli bacteremia, pyelonephritis, and PNA. Continues to require vasopressors and is maxed out on Levophed. Continues to have leukopenia, fever, and tachycardia/tachypnea. Blood cultures drawn 01/13/19 are positive 2/2 for E. coli. Repeat blood cultures drawn 01/15/19 are NGTD x 2 sets. SNOMED Code(s): 04463451 (2) Severe neutropenia Current Visit: Yes Status: Acute ANC 0 since 01/07/2019. Neutropenia with ANC < 1500 since June 2018 Receiving Neupogen. Hematology following. Likely secondary to MDS and worsened by infectious process. SNOMED Code(s): 949640087 (3) E coli bacteremia Current Visit: Yes Status: Acute Causative organism: E. coli. Source: Unclear. Likely intra-abdominal --> pyelo vs. neutropenic colitis vs. other. Blood cultures drawn 01/13/19 are positive 2/2. Repeat blood cultures drawn 01/15/19 are NGTD x 2 sets. Currently on Zosyn and Levaquin. SNOMED Code(s): 284762817838 (4) Pneumonia Current Visit: Yes Status: Acute Location: [facility] and [facility] Causative organism: Unclear. RIP negative. Sputum culture NURTF. Unable to get MRSA screen since she has been on IV Vanc for several days. Will check UATs and repeat sputum culture. Fungal serologies pending. Currently on Vanc, Zosyn, and Levaquin. Qualifiers: Pneumonia type: due to unspecified organism Laterality: unspecified laterality Lung location: unspecified part of lung Qualified Code(s): J18.9 - Pneumonia, unspecified organism SNOMED Code(s): 846532366 (5) Pyelonephritis Current Visit: Yes Status: Acute Causative organism: Unclear. CT abdomen and pelvis showed findings concerning for left pyelonephritis. CVAT noted on exam. Urine culture negative. Currently on Zosyn and Levaquin. SNOMED Code(s): 63906112 (6) Pancytopenia Current Visit: Yes Status: Acute Likely secondary to MDS and worsened by sepsis. Transfusions per the primary team. Hem/Onc consulted and following. SNOMED Code(s): 823214790 (7) Acute respiratory failure Current Visit: Yes Status: Acute Likely secondary to PNA. Pneumonia versus malignancy versus atypical infection Patient is at high risk because she has myelodysplastic syndrome with ANC of 0 for almost a month now. Management per the pulm/CC team. Qualifiers: Respiratory failure complication: hypoxia Qualified Code(s): J96.01 - Acute respiratory failure with hypoxia SNOMED Code(s): 21524029 (8) Abdominal pain Current Visit: Yes Status: Acute Concern for neutropenic colitis/typhlitis Get CT abdomen and pelvis without contrast negative for colitis/typhlitis, but not sure if the lack of contrast would skew the results. Could be secondary to UTI/pyelo based on CT findings, but urine culture negativ e. Consider starting antifungal clinically patient does not do well. Currently on Zosyn. Qualifiers: Abdominal location: left upper quadrant Qualified Code(s): R10.12 - Left upper quadrant pain SNOMED Code(s): 33215834 (9) Myelodysplasia (myelodysplastic syndrome) Current Visit: Yes Status: Chronic Hem/Onc consulted and following. SNOMED Code(s): 279623655 - Recommendations Recommendations: Await repeat blood cultures to finalize. Check S. pneumo and Legionella UATs. Await fungal serologies. O2/vasopressor management per the pulm/CC team. MDS/neutropenia management per the Hem/Onc teams. Continue Zosyn 3.375 grams IV Q8H. Continue Levaquin 750mg IV daily. Continue Vancomycin IV. Pharmacy to dose. Goal trough ~15. Duration of treatment depends on the clinical picture. Monitor renal function and for drug toxicity and dose-adjust antibiotics. Consult Discharge Plan - Plan Referrals: Dennys Sabillon DO [Primary Care Provider] - - Attending Attestation I have personally performed a face to face evaluation on this patient. I have reviewed and agree with the care plan. History and Exam by me shows: Assessment and plan: 1.Septic shock 2.Severe neutropenia 3.Escherichia coli bacteremia 4.Pneumonia causative organism not clear 5.Pyelonephritis left kidney 6.Acute respiratory failure 7.Abdominal pain 8.Myelodysplastic syndrome - being followed by hematology/oncology. Patient receiving Neupogen Recommendations: Check S. pneumo and Legionella UATs. Await fungal serologies. Continue Zosyn 3.375 grams IV Q8H. Continue Levaquin 750mg IV daily. Continue Vancomycin IV. Pharmacy to dose. Goal trough ~15. Duration of treatment depends on the clinical picture. Prognosis is guarded at best Discussed with the ICU team
[2019-01-17] MEDS: Magic Mouthwash 10 ML UD Cup PO SCH ×2 (09:49→10:35)
--- NOTE | 2019-01-17 12:32 | Oncology Inp Progress Note ---
<Anca Duenas - Last Filed: 01/17/19 16:39> Date of Encounter: 01/17/19 (1) Pancytopenia Current Visit: Yes Status: Acute Oncology: Subj Interval history: LAbs slightly improved. Needs pressor support and high flow O2. Agree with palliative care evaluation. No clinical bleeding this AM. Needing plt transfusions, neupogen and blood. I examined this patient and my medical decision-making was reviewed with the Advanced Practice Nurse, Katiana Zuniga. I agree with the documented findings, disposition and treatment plan as described except to the extent set forth below. Oncology: Obj Data - Labs CBC & Chem 7: 01/17/19 03:55 01/17/19 04:00 Consult Discharge Plan - Plan Referrals: Dennys Sabillon DO [Primary Care Provider] - Inpatient Charges Provider: Dr. Radha Duenas Follow up - Inpatient: [id number] <Katiana Zuniga - Last Filed: 01/18/19 14:20> Date of Encounter: 01/17/19 Time of Encounter: 11:30 (1) Anemia Current Visit: Yes Status: Acute Assessment and plan: Normocytic, Normochromic anemia in the setting of MDS s/p decitabine and severe sepsis Not responding well to outpatient PRBC transfusion Denies s/s bleeding No evidence of hemolysis given low LDH and normal indirect bili, apple 1+ B12 severely deficient at 105, s/p B12, started oral supplementation (avoid IM/SQ with low plt count) Folate/Iron replete Plan: PRBC for hgb <7 or symptomatic anemia Blood smear consistent with MDS Qualifiers: Anemia type: B12 deficiency Vitamin B12 deficiency anemia type: unspecified B12 deficiency Qualified Code(s): D51.9 - Vitamin B12 deficiency anemia, unspecified (2) Myelodysplasia (myelodysplastic syndrome) Current Visit: Yes Status: Chronic Assessment and plan: MDS with SF3B1 mutation (favorable prognosis) Anemia, macrocytosis ringed sideroblasts, suspected MDS. Progressive pancytopenia, started decitabine, d1-d5 q 28 day schedule start C1 12/20/18 Further treatment recommendations TBD dependent upon clinical recovery, overall prognosis at this time is guarded secondary to patients respiratory status and need for pressor support Palliative care has been consulted for further goals of care discussions with patient/ in regards to code status (3) Severe neutropenia Current Visit: Yes Status: Acute Assessment and plan: ANC 0 Plan: In the setting of septic shock with E. Coli bacteremia Start neupogen 300 mcg daily until ANC >1.5k Neutropenic precautions WBC slowly trending upward, hopeful neutrophil count will follow (4) Septic shock Current Visit: Yes Status: Acute Assessment and plan: Patient developed septic shock overnight requiring transfer to ICU with levophed support Blood cultures x2 positive for E. coli, she has had prolonged neutropenia for ne juan 4 weeks, UA + with culture pending ID recommendations appreciated, ATB per ID Currently on bipap-palliative care consulted, recs appreciated Start neupogen 300 mcg daily until ANC >1.5k CT chest: Large masslike consolidation in the left upper lobe, mediastinal lymph node and several scattered spiculated nodules are highly suspicious for malignancy. Multifocal pneumonia remains a possibility but is considered less likely. Oncology: Subj Interval history: Ms. Olguin is resting in bed, on bipap, her is at bedside currently. She is tachypneic and tachycardic. She was maxed out on levophed support, now weaning down with acceptable pressures. Her ANC remains at 0, she is on day 4 (dose tonight) of neupogen. Last fever >100.4 was 01/14/2019 around 1800. She denies any s/s bleeding. Denies H/A, visual changes, CP, abdominal pain, nausea, vomiting or diarrhea. She reports generalized weakness and fatigue. She also reports odynophagia. - Constitutional General appearance: cooperative, thin, no febrile Exam: appears in moderate distress with tachypnea and rhonchourus breath sounds on bipap, requiring pressor support, chronically ill appearing - Head Head exam: Present: atraumatic - Cardiovascular Cardiovascular exam: Present: RRR, tachycardia - GI/Abdominal GI/Abdominal exam: Present: normal bowel sounds, soft. Absent: tenderness - Extremities Exam Extremities exam: Present: normal inspection. Absent: calf tenderness - Neurological Exam Neurological exam: Present: alert, oriented X3, no focal deficits, strengths equal and symetr throughout - Psychiatric Psychiatric exam: Present: anxious - Skin Skin exam: Present: dry, pallor, warm Additional comments: bennett/pallor skin discoloration Oncology: Obj Data - Labs CBC & Chem 7: 01/18/19 11:31 05/07/19 03:55 Inpatient Charges Provider: Dr. Radha Duenas
[2019-01-17] MEDS: Sennosides/Docusate Sodium TABLET PO SCH ×2 (12:47→22:03)
[2019-01-17] MEDS: Hydrocortisone Sodium Succ 100 MG/2 ML VIAL IVP SCH ×2 (12:48→18:05)
[2019-01-17] MEDS: Stomatitis Mixture 5 ML UDC PO SCH ×2 (12:48→16:01)
--- NOTE | 2019-01-17 17:08 | Palliative - Consult Note ---
Date of Encounter: 01/17/19 Time of Encounter: 15:50 - Assessment and Plan (1) Advance care planning Current Visit: Yes Status: Acute Assessment and plan: discussed with patient about current medical codnition, trajectory of illness, overall poor prognosis and treatment options. Patient stated repetudly "I don't want to " and "do everything needed to help me get better." When asked specifically about code status, mostly resuscitation and intubation, she stated no, I don't want any life support. Asked who can help with decision making, she wanted me to call her daughter Em and her Dennys. Was unable to reach Em, called and reached Dennys and discussed advanced care planning. Dennys stated he has a hard time understanding on the phone, but he decided with patient earlier on no life support as they believe it does not prolong life. Meeting was set for tomorrow at 11:00am. Palliative care will follow. (2) Severe neutropenia Current Visit: Yes Status: Acute Assessment and plan: ANC 0 On neupogen (3) Acute respiratory failure Current Visit: Yes Status: Acute Assessment and plan: Patient has severe hypoxic respiratory failure. She showed some improvement today and transitioned from BiPAP to high flow NC Qualifiers: Respiratory failure complication: hypoxia Qualified Code(s): J96.01 - Acute respiratory failure with hypoxia (4) Anemia Current Visit: Yes Status: Acute Assessment and plan: s/p 4 PRBCs, Qualifiers: Anemia type: B12 deficiency Vitamin B12 deficiency anemia type: unspecified B12 deficiency Qualified Code(s): D51.9 - Vitamin B12 deficiency anemia, unspe cified (5) Myelodysplasia (myelodysplastic syndrome) Current Visit: Yes Status: Chronic Assessment and plan: Anemia, macrocytosis ringed sideroblasts, suspected MDS. Progressive pancytopenia, Per oncology, patient has some targettable mutations. However, patient's overall shahid is critical. (6) Palliative care encounter Current Visit: Yes Status: Acute Palliative-CN HPI - Data of Consult Patient: new to practice Consult date: 01/17/19 Requesting Physician: Caryn Luna MD Primary Care Provider: Dennys Sabillon, DO - Consult Narrative Palliative Care/Comfort Measures: Palliative care History of present illness: Ms. Olguin is a 68 year old female with PMH of HTN, HLD, MDS, former tobacco abuse, who follows up with [facility] and has had multiple admissions in the past for anemia, was sent from hematology office for anemia and weakness and admitted for symptomatic anemia. Patient has been pancytopenic since admission, not responsive to neupogen, ANC 0. Hospital stay is complicated by sepsis with blood cultures positive for e-coli. currently on Meropenem, Vanco and Levaquin. Respiratory failure with tachypnea and hypoxemia. Palliative care for goals of care discussion. At the time of exam, patient is AAO x3, on high flow nasal canula, speaking in short sentences diue to dyspnea, states her breathing is somewhat better. denies nausea, vomiting, changes in bowel habits. CC: Caryn Luna MD - Time Spent with Patient Time: Total time spent is greater than 50% in coordination of care (as documented) at patient's floor/unit and/or counseling patient: Time with patient: 60 minutes Past Med Surg Social Fam HX - Past Medical History Medical history: hyperlipidemia, hypertension, thyroid disease, other Additional medical history: heart murmur. SMOKER. HIGH CHOLESTEROL. HYPOTHYROIDISM. ANEMIA. diverticulosis. MDS Psychiatric history: depression - Past Surgical History Surgical History: cataract Additional surgical history: BRAIN SURGERY. TUBAL LIGATION. D & C. colonoscopy - egd - Social History Smoking Status: Former smoker Packs per day: less than 1/2 pack Smokeless Tobacco Status: No Alcohol use: none Drug use: none - Family History Mother Family Member Ethnicity: Non- Living Status: Hx Family Cardiac Disorders: No Hx Family Respiratory Disorders: No Hx Family Cancer: Yes Hx Family GI Disorders: No Hx Family Endocrine Disorder: Yes (diabetes) Hx Family Neuromuscular Disorders: No Hx Family Neurologic Disorders: No Hx Family HEENT Disorders: No Hx Family Autoimmune Disorders: No Medications and Allergies Atorvastatin Calcium [Lipitor] 80 mg PO QPM 10/20/17 [History] Cholecalciferol (Vitamin D3) [Vitamin D3] 2,000 unit PO Q48H 10/20/17 [History] Nitroglycerin [Nitrostat] 0.4 mg SL Q5M PRN 05/04/18 [History] Pyridoxine (B-6) [Vitamin B-6] 50 mg PO DAILY #30 tablet 05/04/18 [Rx] Levothyroxine [Synthroid] 75 mcg PO QAM 07/02/18 [History] Metoprolol XL (24 HR) Succ [Toprol Xl] 12.5 mg PO HS 07/30/18 [History] Magic Mouthwash [Magic Mouthwash BLM] 10 ml PO QID PRN #240 ml 01/11/19 [Rx] Allergy/AdvReac Type Severity Reaction Status Date / Time No Known Allergies Allergy Verified 01/13/19 17:39 - Constitutional Constitutional ROS PAL: decreased appetite, fatigue, malaise - EENT Eyes: no change in vision Ears: no decreased hearing - Cardiovascular Cardiovascular ROS: dyspnea on exertion - Respiratory Respiratory: dyspnea, dyspnea on exertion, chest congestion, excessive phlegm production - Gastrointestinal Gastrointestinal: abdominal pain - Musculoskeletal Musculoskeletal ROS IM: muscle weakness - Integumentary ROS Integumentary: dry skin - Neurological Neurological ROS: no convulsions Palliative Care-Exam - Constitutional Vitals: Temp Pulse Resp BP Pulse Ox 97.9 F 97 25 106/53 95 01/17/19 16:00 01/17/19 16:00 01/17/19 16:00 01/17/19 16:00 01/17/19 16:00 General appearance: Present: cooperative, thin. Absent: febrile Exam: - Constitutional General appearance: cooperative, no acute distress, thin, no febrile - Head Head exam: Present: atraumatic - ENT ENT exam: Present: mucous membranes dry, normal oropharynx - Respiratory Respiratory exam: Present: wheezes. Absent: respiratory distress - Cardiovascular Cardiovascular exam: Present: RRR, tachycardia - GI/Abdominal GI/Abdominal exam: Present: normal bowel sounds, soft. Absent: tenderness - Additional comments: mc catheter with clear yellow urine - Extremities Exam Extremities exam: Present: normal inspection. Absent: calf tenderness - Neurological Exam Neurological exam: Present: alert, oriented X3, no focal deficits, strengths equal and symetr throughout - Psychiatric Psychiatric exam: Present: normal affect, normal mood - Skin Skin exam: Present: dry, warm Additional comments: multiple scattered bruises, pale/bennett skin color Internal Medicine - CN: Reslt - Labs CBC & Chem 7: 01/17/19 03:55 01/17/19 04:00 Labs: Short CBC 01/17/19 Range/Units 03:55 WBC 0.5 L* D (4.3-11.1) K/mcL Hgb 7.8 L (11.5-15.4) g/dL Hct 22.6 L (35.3-44.9) % Plt Count 11 L* (140-400) K/mcL Neutrophils # 0.0 L (1.6-8.9) K/mcL BMP 01/17/19 04:00 Sodium 132 L Potassium 3.9 Chloride 105 Carbon Dioxide 19 L BUN 40 H Creatinine 1.20 Glucose 120 H Calcium 6.9 L - ABG Interpretation ABG results: ABG ABG pH 7.43 pH Units (7.32-7.45) 01/16/19 08:25 ABG pCO2 32 mmHg (35-45) L 01/16/19 08:25 ABG pO2 50 mmHg (85-104) L* 01/16/19 08:25 ABG O2 Saturation 87 % (95-98) L 01/16/19 08:25 PT/INR, D-dimer PT 18.1 Seconds (9.4-12.1) H 01/14/19 00:24 - Impressions Impressions Chest X-Ray 01/17/19 04:23 IMPRESSION: Pulmonary edema with interval progression of diffuse left lung airspace disease which is favored to represent pneumonia. D/ / Genaro Munoz MD / Genaro Munoz MD Interpreting Provider: Genaro Munoz MD Consult Discharge Plan - Plan Referrals: Dennys Sabillon DO [Primary Care Provider] - Palliative Quality Palliative Quality: Screen for Code Status: Yes, Screen for Goals of Care: Yes, Screen for Pain: Yes, If Pain Regimen Started, Initiate Bowel Regimen: Yes, Screen for Nausea/Vomitting: Yes Code Status: 01/13/19 11:48 Resuscitation Status: Active [RES] Routine Comment: Resuscitation Status: Full Code
[2019-01-17] MEDS: Pantoprazole 40 MG VIAL IVP SCH (18:05)
[2019-01-18] MEDS: Hydrocortisone Sodium Succ 100 MG/2 ML VIAL IVP SCH ×5 (00:20→23:06)
[2019-01-18] MEDS: Norepinephrine 8 MG in D5% in Water 250 ML IVC SCH ×4 (02:30→22:14)
[2019-01-18] MEDS: Piperacillin/Tazobactam 3.375 GM in 0.9 % Sodium Chloride Mini Bag 100 ML IVPB SCH ×3 (04:05→18:21)
[2019-01-18 04:15] LABS: Red Cell Distribution Width 15.7 % (11.5-14.5)
[2019-01-18 04:16] LABS: Hematocrit 22.1 % (35.3-44.9); Hemoglobin 7.4 g/dL (11.5-15.4); Lymphocytes % 89.1 %; Mean Corpuscular HGB Conc 33.5 g/dL (31.6-35.5); Mean Corpuscular Hemoglobin 28.8 pg (28.0-33.3); Monocytes % 8.7 %; Red Blood Count 2.57 M/mcL (3.82-4.97); Segmented Neutrophils % 2.2 %
[2019-01-18 04:20] LABS: VBG Ionized Calcium 0.97 mmol/L (1.15-1.35)
[2019-01-18 04:34] LABS: Calcium 6.8 mg/dL (8.6-10.3); Magnesium 2.5 mg/dL (1.6-2.6); Phosphorous 6.3 mg/dL (2.7-4.5); Potassium 4.6 mEq/L (3.5-5.1)
[2019-01-18 04:36] LABS: Lymphocytes # 0.5 K/mcL (0.6-4.6)
[2019-01-18 04:38] LABS: Platelet Count 9 K/mcL (140-400)
[2019-01-18 04:48] LABS: Platelet Estimate Marked Decrease (Normal)
[2019-01-18] MEDS ORDERED: Aminoglycoside Consult 1 EACH MC ONE (05:43)
[2019-01-18] MEDS: Pantoprazole 40 MG VIAL IVP SCH (05:54)
--- NOTE | 2019-01-18 08:29 | Pulmonology Progress Note ---
<Heather Graff N - Last Filed: 01/18/19 16:11> Date of Encounter: 01/18/19 Time of Encounter: 08:29 Assessment and Plan (1) Acute respiratory failure Current Visit: Yes Status: Acute Secondary to pneumonia. Patient has had worsening respiratory failure over the last several days, with increasing need for supplemental oxygen to maintain appropriate saturation. On evaluation, patient appears comfortable on high-flow nasal canual, and has been maintaining appropriate oxygenation and ventilation. Most recent ABG performed on 01/16/2019 demonstrated pH 7.43, PCO2 32, PO2 50, and HCO3 21. Chest x-ray performed this yesterday demonstrated pulmonary edema with interval progression of diffuse left lung airspace disease, favored to represent pneumonia, despite ongoing antimicrobial therapy. - Continue noninvasive respiratory support, pressors, and antimicrobial therapy as detailed below. - Repeat chest x-ray tomorrow morning. - Appreciate palliative care assistance with ongoing discussions regarding goals of care and CODE STATUS. Qualifiers: Respiratory failure complication: hypoxia Qualified Code(s): J96.01 - Acute respiratory failure with hypoxia (2) Septic shock Current Visit: Yes Status: Acute Likely secondary to pneumonia. Patient did have an elevated lactic acid 5.9 on 01/14/2019, which has since resolved. She continues to be intermittently tachycardic, and is continuing to require levofed for pressor support. - Continue pressor support with the Levophed, with weaning per protocol as tolerated. - Continue close clinical and telemetry monitoring. - Antimicrobial therapy as detailed below. (3) Pneumonia Current Visit: Yes Status: Acute Unknown infectious organism. Chest x-ray performed this yesterday is concerning for an for progression of diffuse left lung airspace disease favored to represent pneumonia. - Continue current antibiotic therapy of vancomycin, Levaquin, and Zosyn. - Repeat chest xray tomorrow morning. - Appreciate infectious disease recommendations regarding this problem. Qualifiers: Pneumonia type: due to unspecified organism Laterality: unspecified laterality Lung location: unspecified part of lung Qualified Code(s): J18.9 - Pneumonia, unspecified organism (4) E coli bacteremia Current Visit: Yes Status: Acute Escherichia coli bacteremia as evidenced by 2/2 sets of blood cultures obtained on 01/13/2019. - Repeat blood cultures obtained on 01/15/2019 are negative to date. Continue to monitor until results are finalized. - Continue current antibiotic regimen per ID team. (5) Pancytopenia Current Visit: Yes Status: Acute Secondary to myelodysplastic syndrome. Patient has had progressive decline in platelets throughout her admission, with platelet count of 9 on morning laboratory studies, despite transfusion of one unit FFP administered yesterday. Patient does not have any apparent signs of bleeding at this time, though she does have scattered petechiae on her abdomen. - Continue neupogen per heme/onc recommendations. - Neutropenic precautions. - Continue to monitor and trend daily laboratory studies. (6) Decreased urine output Current Visit: Yes Status: Acute Review of intake and output over the last several days shows decreasing trend in urine output, with only 350 mL produced yesterday. Additionally, laboratory studies show increasing serum creatinine and phosphorus. As patient has been on pressor support for a prolonged period of time, concern for possible development of acute renal failure. Considering oncology history, tumor lysis syndrome would also be in the differential. - Continue to monitor and record daily I's and O's. - Obtain serum creatine kinase, as well as urine electrolytes. - Consider consult to nephrology pending results of these studies. (7) Myelodysplasia (myelodysplastic syndrome) Current Visit: Yes Status: Chronic History of myelodysplasia, followed by hematology/oncology. Will continue management per their recommendations. (8) Hypothyroidism Current Visit: No Status: Chronic - Continue home medication of synthroid. Qualifiers: Hypothyroidism type: unspecified Qualified Code(s): E03.9 - Hypothyroidism, unspecified (9) Tobacco abuse Current Visit: Yes Status: Chronic History of tobacco abuse. - Smoking cessation counselling provided. - Nicotine patch TD PRN cravings. (10) DVT prophylaxis Current Visit: Yes Status: Acute - SCDs. Subjective Principal diagnosis: Acute hypoxic respiratory failure with septic shock Interval history: Ms. Olguin was seen and evaluated at the bedside this morning. She states that she feels somewhat better today, and notes improvement in respiratory status. Henok butts does report that she has not had a bowel movement since last or Thursday, which she notes is unusual, as she is normally has a bowel movement everyday. Patient denies any pain or discomfort, and voices no concerns at this time. Objective PUL Vital signs: Last Vital Signs Temp 97.7 F 01/18/19 03:54 Pulse 76 01/18/19 07:00 Resp 24 01/18/19 07:00 BP 88/51 01/18/19 07:00 Pulse Ox 94 01/18/19 07:00 GENERAL: Ill-appearing adult female resting in bed in no acute distress. She appears to be mildly improved from yesterday. HEENT: Atraumatic and normocephalic. High flow nasal cannula in place. CARDIOVASCULAR: Regular rate and rhythm. S1 and S2 present. RESPIRATORY: Diffusely decreased breath sounds bilaterally. Chest rises and falls symmetrically with respiration. Minimal accessory muscle use. GASTROINTESTINAL: Abdomen is mildly distended with hypoactive bowel sounds. Patient expresses diffuse tenderness to abdominal palpation. EXTREMITIES: No clubbing, cyanosis, or edema. SKIN: Warm, dry, and intact. NEUROLOGIC: Alert and oriented x3. Patient is cooperative with exam and answers questions appropriately. No apparent focal deficits. PSYCHIATRIC: Appropriate mood and affect. Results - Laboratory Findings CBC and BMP: 01/18/19 14:40 01/18/19 03:55 ABG ABG pH 7.43 pH Units (7.32-7.45) 01/16/19 08:25 ABG pCO2 32 mmHg (35-45) L 01/16/19 08:25 ABG pO2 50 mmHg (85-104) L* 01/16/19 08:25 ABG O2 Saturation 87 % (95-98) L 01/16/19 08:25 PT/INR, D-dimer PT 18.1 Seconds (9.4-12.1) H 01/14/19 00:24 Abnormal lab findings: Abnormal lab results WBC 0.5 K/mcL (4.3-11.1) L* 01/18/19 03:55 RBC 2.57 M/mcL (3.82-4.97) L 01/18/19 03:55 Hgb 7.4 g/dL (11.5-15.4) L 01/18/19 03:55 Hct 22.1 % (35.3-44.9) L 01/18/19 03:55 MCV 82.9 fL (83.0-100.0) L 01/14/19 19:30 MCHC 35.8 g/dL (31.6-35.5) H 01/15/19 03:40 RDW 15.7 % (11.5-14.5) H 01/18/19 03:55 Plt Count 9 K/mcL (140-400) L* 01/18/19 03:55 MPV 14.4 fL (9.4-12.4) H 01/16/19 03:30 Immature Gran % 4.3 % (0-4) H 01/14/19 00:24 0.0 K/mcL (1.6-8.9) L 01/18/19 03:55 0.5 K/mcL (0.6-4.6) L 01/18/19 03:55 Marked Decrease (Normal) L 01/18/19 03:55 Present (Not Present) A 01/14/19 19:30 Immature Plt Fraction 15.5 % (1.1-6.1) H 01/15/19 12:00 Present (Not Present) A 01/15/19 18:14 1+ (Not Present) A 01/15/19 18:14 1+ (Not Present) A 01/15/19 12:00 Present (Not Present) A 01/15/19 03:40 Present (Not Present) A 01/15/19 12:00 1+ (Not Present) A 01/15/19 18:14 Acanthocytes (Spur) 1+ (Not Present) A 01/15/19 12:00 PT 18.1 Seconds (9.4-12.1) H 01/14/19 00:24 869 mg/dL (169-393) H* 01/15/19 12:56 ABG pH 7.49 pH Units (7.32-7.45) H 01/14/19 20:36 ABG pCO2 32 mmHg (35-45) L 01/16/19 08:25 ABG pO2 50 mmHg (85-104) L* 01/16/19 08:25 ABG HCO3 17 mEq/L (21-27) L 01/14/19 20:36 ABG Total CO2 17 mEq/L (20-26) L 01/14/19 20:36 ABG O2 Saturation 87 % (95-98) L 01/16/19 08:25 ABG Base Excess -3 mEq/L (-2 to 3) L 01/16/19 08:25 Sodium 132 mEq/L (136-145) L 01/18/19 03:55 Potassium 3.4 mEq/L (3.5-5.1) L 01/14/19 19:30 Chloride 109 mEq/L (98-107) H 01/14/19 00:24 Carbon Dioxide 17 mEq/L (23-29) L 01/18/19 03:55 BUN 51 mg/dL (8-23) H 01/18/19 03:55 1.63 mg/dL (0.60-1.20) H 01/18/19 03:55 Est GFR ( Amer) 38 (> 60) L 01/18/19 03:55 Est GFR (Non-Af Amer) 31 (> 60) L 01/18/19 03:55 31 (6-26) H 01/18/19 03:55 Glucose 167 mg/dL (70-105) H 01/18/19 03:55 POC Glucose 164 mg/dL (70-99) H 01/18/19 00:27 Lactic Acid 2.5 mmol/L (0.5-2.2) H 01/14/19 13:00 Calcium 6.8 mg/dL (8.6-10.3) L 01/18/19 03:55 Venous Ioniz Calcium 0.97 mmol/L (1.15-1.35) L 01/18/19 04:17 Phosphorus 6.3 mg/dL (2.7-4.5) H 01/18/19 03:55 Iron 44 mcg/dL (50-170) L 01/13/19 12:05 92 mg/dL (203-362) L 01/13/19 12:05 > 1500 ng/mL (10-120) H 01/13/19 12:05 0.3 mg/dL (0.0-0.2) H 01/13/19 12:05 AST 45 Units/L (13-39) H 01/14/19 00:24 139 Units/L (140-271) L 01/13/19 12:05 5.4 g/dL (6.4-8.9) L 01/14/19 00:24 2.3 g/dL (3.5-5.7) L 01/14/19 00:24 0.7 (1.1-2.2) L 01/14/19 00:24 Vitamin B12 105 pg/mL (250-1100) L 01/13/19 12:05 Turbid (Clear) A 01/13/19 23:41 30 mg/dL (Neg-Trace) H 01/13/19 23:41 Trace (Negative) H 01/13/19 23:41 Small (Negative) H 01/13/19 23:41 5-15 per hpf (0-3) H 01/13/19 23:41 Ur Squamous Epith Cells Many per lpf (None-Few) H 01/13/19 23:41 Amorphous Sediment Many (Few) H 01/13/19 23:41 Moderate per hpf (None-Few) H 01/13/19 23:41 Ur Culture Indicated? YES (NO) A 01/13/19 23:41 Vancomycin Trough 13 mcg/mL (5-10) H 01/17/19 20:00 Enterobacteriac sp PCR DETECTED (Not Detect) A 01/13/19 19:27 E. coli (PCR) DETECTED (Not Detect) A 01/13/19 19:27 A. galactomannan Ag POSITIVE (Negative) A 01/15/19 03:40 Direct Antiglob Test +/- Weak Positive (Negative) A 01/13/19 19:26 MTS Gel Crossmatch See Detail 01/13/19 19:26 - Microbiology Findings Microbiology Findings: Microbiology, Last 48 Hours 01/17/19 15:08 Legionella Antigen - Final Urine,[place] Streptococcus pneumoniae Antigen (M - Final 01/15/19 03:40 Cryptococcal Antigen - Final Serum 01/13/19 19:27 Blood Culture - Final Peripheral Venipuncture Escherichia coli 01/13/19 19:26 Blood Culture - Final Peripheral Venipuncture Escherichia coli 01/15/19 10:38 Sputum Culture - Preliminary Sputum - Clinical Findings Intake & Output: Intake & Output 01/17/19 01/18/19 01/18/19 23:59 07:59 15:59 Intake Total 608 / 2070.2 624.6 / 624.6 Output Total 75 / 350 125 / 125 Balance 533 / 1720.2 499.6 / 499.6 Weight 68.6 kg Consult Discharge Plan - Plan Referrals: Dennys Sabillon DO [Primary Care Provider] - <Tyler Vann M - Last Filed: 01/18/19 22:25> Date of Encounter: 01/18/19 Objective PUL Vital signs: Last Vital Signs Temp 97.5 F L 01/18/19 12:21 Pulse 103 01/18/19 15:00 Resp 30 01/18/19 15:00 BP 119/66 01/18/19 15:00 Pulse Ox 91 01/18/19 15:00 Results - Laboratory Findings CBC and BMP: 01/18/19 14:40 01/18/19 03:55 ABG ABG pH 7.43 pH Units (7.32-7.45) 01/16/19 08:25 ABG pCO2 32 mmHg (35-45) L 01/16/19 08:25 ABG pO2 50 mmHg (85-104) L* 01/16/19 08:25 ABG O2 Saturation 87 % (95-98) L 01/16/19 08:25 PT/INR, D-dimer PT 18.1 Seconds (9.4-12.1) H 01/14/19 00:24 Abnormal lab findings: Abnormal lab results WBC 0.5 K/mcL (4.3-11.1) L* 01/18/19 03:55 RBC 2.57 M/mcL (3.82-4.97) L 01/18/19 03:55 Hgb 8.2 g/dL (11.5-15.4) L 01/18/19 14:40 Hct 24.3 % (35.3-44.9) L 01/18/19 14:40 MCV 82.9 fL (83.0-100.0) L 01/14/19 19:30 MCHC 35.8 g/dL (31.6-35.5) H 01/15/19 03:40 RDW 15.7 % (11.5-14.5) H 01/18/19 03:55 Plt Count 9 K/mcL (140-400) L* 01/18/19 03:55 MPV 14.4 fL (9.4-12.4) H 01/16/19 03:30 Immature Gran % 4.3 % (0-4) H 01/14/19 00:24 0.0 K/mcL (1.6-8.9) L 01/18/19 03:55 0.5 K/mcL (0.6-4.6) L 01/18/19 03:55 Marked Decrease (Normal) L 01/18/19 03:55 Present (Not Present) A 01/14/19 19:30 Immature Plt Fraction 15.5 % (1.1-6.1) H 01/15/19 12:00 Present (Not Present) A 01/15/19 18:14 1+ (Not Present) A 01/15/19 18:14 1+ (Not Present) A 01/15/19 12:00 Present (Not Present) A 01/15/19 03:40 Present (Not Present) A 01/15/19 12:00 1+ (Not Present) A 01/15/19 18:14 Acanthocytes (Spur) 1+ (Not Present) A 01/15/19 12:00 PT 18.1 Seconds (9.4-12.1) H 01/14/19 00:24 869 mg/dL (169-393) H* 01/15/19 12:56 ABG pH 7.49 pH Units (7.32-7.45) H 01/14/19 20:36 ABG pCO2 32 mmHg (35-45) L 01/16/19 08:25 ABG pO2 50 mmHg (85-104) L* 01/16/19 08:25 ABG HCO3 17 mEq/L (21-27) L 01/14/19 20:36 ABG Total CO2 17 mEq/L (20-26) L 01/14/19 20:36 ABG O2 Saturation 87 % (95-98) L 01/16/19 08:25 ABG Base Excess -3 mEq/L (-2 to 3) L 01/16/19 08:25 Sodium 132 mEq/L (136-145) L 01/18/19 03:55 Potassium 3.4 mEq/L (3.5-5.1) L 01/14/19 19:30 Chloride 109 mEq/L (98-107) H 01/14/19 00:24 Carbon Dioxide 17 mEq/L (23-29) L 01/18/19 03:55 BUN 51 mg/dL (8-23) H 01/18/19 03:55 1.63 mg/dL (0.60-1.20) H 01/18/19 03:55 Est GFR ( Amer) 38 (> 60) L 01/18/19 03:55 Est GFR (Non-Af Amer) 31 (> 60) L 01/18/19 03:55 31 (6-26) H 01/18/19 03:55 Glucose 167 mg/dL (70-105) H 01/18/19 03:55 POC Glucose 164 mg/dL (70-99) H 01/18/19 00:27 Lactic Acid 2.5 mmol/L (0.5-2.2) H 01/14/19 13:00 Calcium 6.8 mg/dL (8.6-10.3) L 01/18/19 03:55 Venous Ioniz Calcium 0.95 mmol/L (1.15-1.35) L 01/18/19 12:10 Phosphorus 6.3 mg/dL (2.7-4.5) H 01/18/19 03:55 Iron 44 mcg/dL (50-170) L 01/13/19 12:05 92 mg/dL (203-362) L 01/13/19 12:05 > 1500 ng/mL (10-120) H 01/13/19 12:05 0.3 mg/dL (0.0-0.2) H 01/13/19 12:05 AST 45 Units/L (13-39) H 01/14/19 00:24 139 Units/L (140-271) L 01/13/19 12:05 5.4 g/dL (6.4-8.9) L 01/14/19 00:24 2.3 g/dL (3.5-5.7) L 01/14/19 00:24 0.7 (1.1-2.2) L 01/14/19 00:24 Vitamin B12 105 pg/mL (250-1100) L 01/13/19 12:05 Turbid (Clear) A 01/13/19 23:41 30 mg/dL (Neg-Trace) H 01/13/19 23:41 Trace (Negative) H 01/13/19 23:41 Small (Negative) H 01/13/19 23:41 5-15 per hpf (0-3) H 01/13/19 23:41 Ur Squamous Epith Cells Many per lpf (None-Few) H 01/13/19 23:41 Amorphous Sediment Many (Few) H 01/13/19 23:41 Moderate per hpf (None-Few) H 01/13/19 23:41 Ur Culture Indicated? YES (NO) A 01/13/19 23:41 Vancomycin Trough 13 mcg/mL (5-10) H 01/17/19 20:00 Enterobacteriac sp PCR DETECTED (Not Detect) A 01/13/19 19:27 E. coli (PCR) DETECTED (Not Detect) A 01/13/19 19:27 A. galactomannan Ag POSITIVE (Negative) A 01/15/19 03:40 Direct Antiglob Test +/- Weak Positive (Negative) A 01/13/19 19:26 MTS Gel Crossmatch See Detail 01/18/19 09:35 - Microbiology Findings Microbiology Findings: Microbiology, Last 48 Hours 01/15/19 10:38 Sputum Culture - Final Sputum 01/17/19 15:08 Legionella Antigen - Final Urine,[place] Streptococcus pneumoniae Antigen (M - Final 01/15/19 03:40 Cryptococcal Antigen - Final Serum 01/13/19 19:27 Blood Culture - Final Peripheral Venipuncture Escherichia coli 01/13/19 19:26 Blood Culture - Final Peripheral Venipuncture Escherichia coli - Clinical Findings Intake & Output: Intake & Output 01/17/19 01/18/19 01/18/19 23:59 07:59 15:59 Intake Total 608 / 2070.2 687.6 / 1045.6 358 / 1045.6 Output Total 75 / 350 125 / 205 80 / 205 Balance 533 / 1720.2 562.6 / 840.6 278 / 840.6 Weight 68.6 kg - Attending Attestation I examined this patient and my medical decision-making was reviewed with the Resident Physician. I agree with the documented findings, disposition and treatment plan as described except to the extent set forth below. Patient seen and examined. Labs, radiology, chart personally reviewed. 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 Concern with bleeding doing any procedure including intubation. It is difficult to give patient any fluid with her respiratory status. Cardiovascular: Shock and remain on vasopressor and hoping giving PRBC that will help BP and oxygenation. GI: Nutrition per dietary and GI prophylaxis per routine. This is limited due to her respiratory status Heme: DVT prophylaxis per routine. Hematology evaluation for checking if need any more intervention. ID: Continue antibiotics and plan to de-escalation and discussed with ID and agree with plan of care and covering viral and fungal infection Renal; urine out put and renal funtcion reviewed and concern about the renal function Endorcine: blood glucose is monitored Lines: all lines checked and no evidence of infections Skin: skin care to prevent pressure ulcers per nursing routine care I spent 32 min of Critical Care time with this patient. It involved decision making of high complexity to assess, manipulate, and support vital organ system failure and/or to prevent further life threatening deterioration of the patient's condition. The time involved in the performance of separately reportable procedures was not counted toward critical care time.
[2019-01-18] MEDS: Dexmedetomidine HCl 400 MCG/100 ML MLS IVC SCH (08:37)
[2019-01-18] MEDS: Sennosides/Docusate Sodium TABLET PO SCH ×2 (08:50→22:17)
[2019-01-18] MEDS: Cyanocobalamin (B-12) 1,000 MCG TABLET PO SCH (08:50)
[2019-01-18] MEDS: Pyridoxine (B-6) 50 MG TABLET PO SCH (08:50)
[2019-01-18] MEDS: Stomatitis Mixture 5 ML UDC PO SCH ×3 (09:06→16:35)
--- NOTE | 2019-01-18 09:07 | Infectious Disease Progress No ---
ID Progress Note Date of Encounter: 01/18/19 Time of Encounter: 09:05 - Subjective Subjective: Patient seen and examined. No acute events noted overnight. Patient states she feels okay today. Denies fevers, chills, or rigors. Denies headache or neck pain. States she feels generally fatigued and weak. Denies congestion, earache, or sore throat. Denies chest pain. Reports shortness of breath and moist productive cough with small amount of bloody/yellow sputum. Denies naus ea, vomiting, diarrhea, or constipation. States she has not had a bowel movement since last week. Reports a generally poor appetite. Salazar catheter remains patent. Denies abdominal pain or back pain. Denies joint or extremity pain. States her mouth is dry and sore. Denies skin lesions or rashes. - Objective CBC & Chem 7: 01/19/19 04:00 01/19/19 04:00 - Exam Vitals: Temp Pulse Resp BP Pulse Ox 97.9 F 76 24 88/51 94 01/18/19 08:37 01/18/19 07:00 01/18/19 07:00 01/18/19 07:00 01/18/19 07:00 Exam: Head: Atraumatic, normal inspection, normocephalic. Eye: EOMI, PERRLA, no scleral icterus noted. ENT: Mucous membranes moist. No odontogenic infection noted. Neck: Normal inspection, no meningismus. Respiratory: Scattered rhonchi throughout. Tachypnea noted on high flow O2. No respiratory distress, rales, or wheezes noted. Cardiovascular: Regular rhythm and rate. S1 and S2 audible. No murmurs, rubs, or gallops. GI: Soft, nondistended, normal bowel sounds. Tenderness noted with palpation. No CVAT noted. Salazar draining clear dark yellow urine. Extremities: No joint swelling, pedal edema, or tenderness noted. Neurological: Alert, oriented 3, no focal deficits. Psychiatric: normal affect, normal mood. Skin: Dry, intact, warm. Normal color. Petechial rash noted to the trunk. - Assessment and Plan (1) Septic shock Status: Acute The patient has tachycardia, tachypnea, fever, and leukopenia with hypotension requiring vasopressors. Likely secondary to E. coli bacteremia, pyelonephritis, and PNA. Continues to require vasopressors and is on Levophed. Continues to have leukopenia and tachycardia/tachypnea. Afebrile overnight. Blood cultures drawn 01/13/19 are positive 2/2 for E. coli. Repeat blood cultures drawn 01/15/19 are NGTD x 2 sets. SNOMED Code(s): 36647804 (2) Severe neutropenia Status: Acute ANC 0 since 01/07/2019. Neutropenia with ANC < 1500 since June 2018 Receiving Neupogen. Hematology following. Likely secondary to MDS and worsened by infectious process. SNOMED Code(s): 174926117 (3) E coli bacteremia Status: Acute Causative organism: E. coli. Source: Unclear. Likely intra-abdominal --> pyelo vs. neutropenic colitis vs. ot her. Blood cultures drawn 01/13/19 are positive 2/2. Repeat blood cultures drawn 01/15/19 are NGTD x 2 sets. Currently on Zosyn and Levaquin. SNOMED Code(s): 629701133887 (4) Pneumonia Status: Acute Location: RML and RYAN Causative organism: Unclear. CT chest 01/13/19 showed a large masslike consolidation in the left upper lobe, m ediastinal lymph node and several scattered spiculated nodules are highly suspicious for malignancy. Multifocal pneumonia remains a possibility but is considered less likely. CT abdomen and pelvis 01/14/19 showed airspace opacifications seen in the right middle lobe and the visualized portion of the left upper lobe may be related to multifocal pneumonia. RIP negative. Sputum culture NURTF. Unable to get MRSA screen since she has been on IV Vanc for several days. Strep pneumococcal and legionella urinary antigens were negative. Fungi tell pending. Crypto and histo were negative. Aspergillus galactomannan antigen was positive. Currently on Vanc, Zosyn, and Levaquin. Qualifiers: Pneumonia type: due to unspecified organism Laterality: unspecified laterality Lung location: unspecified part of lung Qualified Code(s): J18.9 - Pneumonia, unspecified organism SNOMED Code(s): 659056536 (5) Pyelonephritis Status: Acute Causative organism: Unclear. CT abdomen and pelvis showed findings concerning for left pyelonephritis. CVAT noted previously on exam has resolved. Urine culture negative. Currently on Zosyn and Levaquin. SNOMED Code(s): 18597798 (6) Pancytopenia Status: Acute Likely secondary to MDS and worsened by sepsis. Transfusions per the primary team. Persists despite Neupogen. Hem/Onc consulted and following. SNOMED Code(s): 513999140 (7) Acute respiratory failure Status: Acute Likely secondary to PNA. Pneumonia versus malignancy versus atypical infection. Patient is at high risk because she has myelodysplastic syndrome with ANC of 0 for almost a month now. Currently on high flow nasal cannula at 40% FiO2. Management per the pulm/CC team. Qualifiers: Respiratory failure complication: hypoxia Qualified Code(s): J96.01 - Acute respiratory failure with hypoxia SNOMED Code(s): 73644425 (8) Abdominal pain Status: Acute Concern for neutropenic colitis/typhlitis CT abdomen and pelvis without contrast negative for colitis/typhlitis, but not sure if the lack of contrast would skew the results. Could be secondary to UTI/pyelo based on CT findings, but urine culture negative. Consider starting antifungal clinically patient does not do well. Currently on Zosyn. Qualifiers: Abdominal location: left upper quadrant Qualified Code(s): R10.12 - Left upper quadrant pain SNOMED Code(s): 20335417 (9) Myelodysplasia (myelodysplastic syndrome) Status: Chronic Hem/Onc consulted and following. SNOMED Code(s): 699385764 - Recommendations Recommendations: Await repeat blood cultures to finalize. Await Fungitell results. Consider bronch to help identify causative organism and possible biopsy of the mass. O2/vasopressor management per the pulm/CC team. MDS/neutropenia management per the Hem/Onc teams. Continue Zosyn 3.375 grams IV Q8H. Continue Levaquin 750mg IV daily. Continue Vancomycin IV. Pharmacy to dose. Goal trough ~15. Duration of treatment depends on the clinical picture. Monitor renal function and for drug toxicity and dose-adjust antibiotics. Consult Discharge Plan - Plan Referrals: Dennys Sabillon DO [Primary Care Provider] - - Attending Attestation I have personally performed a face to face evaluation on this patient. I have reviewed and agree with the care plan. History and Exam by me shows: Assessment and plan: 1.Septic shock 2.Severe neutropenia 3.Escherichia coli bacteremia 4.Pneumonia causative organism not clear 5.Pyelonephritis left kidney 6.Acute respiratory failure 7.Abdominal pain 8.Myelodysplastic syndrome - being followed by hematology/oncology. Patient receiving Neupogen Recommendations: Prognosis very poor. Her Aspergillus came back slightly positive. She has severe lesions in her mouth which could be herpes or oral thrush or combination of both. I will add acyclovir and voriconazole Discussed with the hematology/oncology team
--- NOTE | 2019-01-18 10:17 | Palliative Progress Note ---
Date of Encounter: 01/18/19 Time of Encounter: 09:40 - Assessment and plan (1) Severe neutropenia Current Visit: Yes Status: Acute Assessment and plan: Patient has pancytopenia, On neupogen, day #5, no response. ANC 0, Plts 11--> 9 after transfusion, Hb 7.4, s/p 4PRBCs, 4 plts and 1 plasma transfusion. (2) Advance care planning Current Visit: Yes Status: Acute Assessment and plan: Family meeting was planned for today at 11am with patient's Dennys. Patient would like her daughter Em to be present. Called and reached Em, she cannot be physically present, but will connect on speaker phone. 11:10 to 11:50: conducted meeting with patient, Dennys (Mahin), grandson Gavin and daughter Em on speaker phone ([phone]). Discussed current medical condition, explained the different treatment options used so far, discussed rossi so far treatment have failed to result in the hoped recovery clinically or laboratory. Patient's family had a meeting yesterday and would like for patient to focus on comfort and return home. Patient does not agree, she is still hopeful for recovery and wants to continue treatment for few more days. Discussed code status, all present agreed for DNRCCA and DNI. DNR state form was drafted and signed by Dennys on behalf of Karina. Decision was made to continue aggressive care for a few more days, follow up meeting 01/20. Further discussion with Dennys alone, he asked more about prognosis. Explained that patient is on HFNC, and if her lungs do not improve, she is not likely to survive more than a few hours off HFNC or Bipap. Emotional support provided. (3) Acute respiratory failure Current Visit: Yes Status: Acute Assessment and plan: Patient has severe hypoxic respiratory failure. She showed some improvement and remains stable on high flow NC Qualifiers: Qualified Code(s): J96.01 - Acute respiratory failure with hypoxia (4) Anemia Current Visit: Yes Status: Acute Qualifiers: Qualified Code(s): D51.9 - Vitamin B12 deficiency anemia, unspecified (5) Myelodysplasia (myelodysplastic syndrome) Current Visit: Yes Status: Chronic Assessment and plan: Anemia, macrocytosis ringed sideroblasts, suspected MDS. Progressive pancytopenia, Per oncology, patient has some targettable mutations. However, patient's overall shahid is critical. (6) Palliative care encounter Current Visit: Yes Status: Acute - Time Spent With Patient Total time spent is greater than 50% in coordination of care (as documented) at patient's floor/unit and/or counseling patient: - Subjective Interval history: No changes on clinical status, no overnight events. Remains on HFNC, tachypnea, speaking in short sentences. Patient ANC remains 0 and platelets are down to 9, s/p neupogen x4. Summary of HPI: Ms. Olguin is a 68 year old female with PMH of HTN, HLD, MDS, former tobacco abuse, who follows up with [facility] and has had multiple admissions in the past for anemia, was sent from hematology office for anemia and weakness and admitted for symptomatic anemia. Patient has been pancytopenic since admission, not responsive to neupogen, ANC 0. Hospital stay is complicated by sepsis with blood cultures positive for e-coli. currently on Meropenem, Vanco and Levaquin. Respiratory failure with tachypnea and hypoxemia. Palliative care for goals of care discussion. - Constitutional Vitals: Abnormal lab results WBC 0.5 K/mcL (4.3-11.1) L* 01/18/19 03:55 RBC 2.57 M/mcL (3.82-4.97) L 01/18/19 03:55 Hgb 7.4 g/dL (11.5-15.4) L 01/18/19 03:55 Hct 22.1 % (35.3-44.9) L 01/18/19 03:55 MCV 82.9 fL (83.0-100.0) L 01/14/19 19:30 MCHC 35.8 g/dL (31.6-35.5) H 01/15/19 03:40 RDW 15.7 % (11.5-14.5) H 01/18/19 03:55 Plt Count 9 K/mcL (140-400) L* 01/18/19 03:55 MPV 14.4 fL (9.4-12.4) H 01/16/19 03:30 Immature Gran % 4.3 % (0-4) H 01/14/19 00:24 0.0 K/mcL (1.6-8.9) L 01/18/19 03:55 0.5 K/mcL (0.6-4.6) L 01/18/19 03:55 Marked Decrease (Normal) L 01/18/19 03:55 Present (Not Present) A 01/14/19 19:30 Immature Plt Fraction 15.5 % (1.1-6.1) H 01/15/19 12:00 Present (Not Present) A 01/15/19 18:14 1+ (Not Present) A 01/15/19 18:14 1+ (Not Present) A 01/15/19 12:00 Present (Not Present) A 01/15/19 03:40 Present (Not Present) A 01/15/19 12:00 1+ (Not Present) A 01/15/19 18:14 Acanthocytes (Spur) 1+ (Not Present) A 01/15/19 12:00 PT 18.1 Seconds (9.4-12.1) H 01/14/19 00:24 869 mg/dL (169-393) H* 01/15/19 12:56 ABG pH 7.49 pH Units (7.32-7.45) H 01/14/19 20:36 ABG pCO2 32 mmHg (35-45) L 01/16/19 08:25 ABG pO2 50 mmHg (85-104) L* 01/16/19 08:25 ABG HCO3 17 mEq/L (21-27) L 01/14/19 20:36 ABG Total CO2 17 mEq/L (20-26) L 01/14/19 20:36 ABG O2 Saturation 87 % (95-98) L 01/16/19 08:25 ABG Base Excess -3 mEq/L (-2 to 3) L 01/16/19 08:25 Sodium 132 mEq/L (136-145) L 01/18/19 03:55 Potassium 3.4 mEq/L (3.5-5.1) L 01/14/19 19:30 Chloride 109 mEq/L (98-107) H 01/14/19 00:24 Carbon Dioxide 17 mEq/L (23-29) L 01/18/19 03:55 BUN 51 mg/dL (8-23) H 01/18/19 03:55 1.63 mg/dL (0.60-1.20) H 01/18/19 03:55 Est GFR ( Amer) 38 (> 60) L 01/18/19 03:55 Est GFR (Non-Af Amer) 31 (> 60) L 01/18/19 03:55 31 (6-26) H 01/18/19 03:55 Glucose 167 mg/dL (70-105) H 01/18/19 03:55 POC Glucose 164 mg/dL (70-99) H 01/18/19 00:27 Lactic Acid 2.5 mmol/L (0.5-2.2) H 01/14/19 13:00 Calcium 6.8 mg/dL (8.6-10.3) L 01/18/19 03:55 Venous Ioniz Calcium 0.97 mmol/L (1.15-1.35) L 01/18/19 04:17 Phosphorus 6.3 mg/dL (2.7-4.5) H 01/18/19 03:55 Iron 44 mcg/dL (50-170) L 01/13/19 12:05 92 mg/dL (203-362) L 01/13/19 12:05 > 1500 ng/mL (10-120) H 01/13/19 12:05 0.3 mg/dL (0.0-0.2) H 01/13/19 12:05 AST 45 Units/L (13-39) H 01/14/19 00:24 139 Units/L (140-271) L 01/13/19 12:05 5.4 g/dL (6.4-8.9) L 01/14/19 00:24 2.3 g/dL (3.5-5.7) L 01/14/19 00:24 0.7 (1.1-2.2) L 01/14/19 00:24 Vitamin B12 105 pg/mL (250-1100) L 01/13/19 12:05 Turbid (Clear) A 01/13/19 23:41 30 mg/dL (Neg-Trace) H 01/13/19 23:41 Trace (Negative) H 01/13/19 23:41 Small (Negative) H 01/13/19 23:41 5-15 per hpf (0-3) H 01/13/19 23:41 Ur Squamous Epith Cells Many per lpf (None-Few) H 01/13/19 23:41 Amorphous Sediment Many (Few) H 01/13/19 23:41 Moderate per hpf (None-Few) H 01/13/19 23:41 Ur Culture Indicated? YES (NO) A 01/13/19 23:41 Vancomycin Trough 13 mcg/mL (5-10) H 01/17/19 20:00 Enterobacteriac sp PCR DETECTED (Not Detect) A 01/13/19 19:27 E. coli (PCR) DETECTED (Not Detect) A 01/13/19 19:27 A. galactomannan Ag POSITIVE (Negative) A 01/15/19 03:40 Direct Antiglob Test +/- Weak Positive (Negative) A 01/13/19 19:26 MTS Gel Crossmatch See Detail 01/13/19 19:26 Exam: General appearance: Present: cooperative, thin. Exam: - Constitutional General appearance: cooperative, no acute distress, thin, no febrile - Head Head exam: Present: atraumatic - ENT ENT exam: Present: mucous membranes dry, normal oropharynx - Respiratory Respiratory exam: Present: wheezes, crackles, tachypnea. - Cardiovascular Cardiovascular exam: Present: RRR, tachycardia - GI/Abdominal GI/Abdominal exam: Present: normal bowel sounds, soft. - Additional comments: mc catheter with clear yellow urine - Extremities Exam Extremities exam: Present: normal inspection. Absent: calf tenderness - Neurological Exam Neurological exam: Present: alert, oriented X3, no focal deficits, strengths equal and symetr throughout - Psychiatric Psychiatric exam: Present: normal affect, normal mood - Skin Skin exam: Present: dry, warm Additional comments: multiple scattered bruises, pale/bennett skin color Palliative Quality Palliative Quality: Screen for Code Status: Yes, Screen for Goals of Care: Yes, Screen for Pain: Yes, If Pain Regimen Started, Initiate Bowel Regimen: Yes, Screen for Nausea/Vomitting: Yes Code Status: 01/13/19 11:48 Resuscitation Status: Active [RES] Routine Comment: Resuscitation Status: Full Code - Labs CBC & Chem 7: 01/18/19 11:31 01/18/19 03:55 Labs: Laboratory Results - last 24 hr 01/15/19 01/15/19 01/17/19 03:30 03:40 12:19 WBC RBC Hgb Hct MCV MCH MCHC RDW Plt Count MPV Immature Gran % Seg Neutrophils % Lymphocytes % Monocytes % Eosinophils % Basophils % Neutrophils # Lymphocytes # Monocytes # Eosinophils # Basophils # Platelet Estimate Sodium Potassium Chloride Carbon Dioxide BUN Creatinine Est GFR ( Amer) Est GFR (Non-Af Amer) BUN/Creatinine Ratio Glucose POC Glucose 157 H Calculated Osmolality Calcium Venous Ioniz Calcium Phosphorus Magnesium Vancomycin Trough U Histopl Galactoman Ag NOT DETECTED U Histopl Galact Ant Int NOT DETECTED A. galactomannan Ag POSITIVE A A. galactomannan Ag Idx 0.89 01/17/19 01/18/19 01/18/19 20:00 00:27 03:55 WBC RBC Hgb Hct MCV MCH MCHC RDW Plt Count MPV Immature Gran % Seg Neutrophils % Lymphocytes % Monocytes % Eosinophils % Basophils % Neutrophils # Lymphocytes # Monocytes # Eosinophils # Basophils # Platelet Estimate Sodium 132 L Potassium 4.6 Chloride 101 Carbon Dioxide 17 L BUN 51 H Creatinine 1.63 H Est GFR ( Amer) 38 L Est GFR (Non-Af Amer) 31 L BUN/Creatinine Ratio 31 H Glucose 167 H POC Glucose 164 H Calculated Osmolality 291 Calcium 6.8 L Venous Ioniz Calcium Phosphorus 6.3 H Magnesium 2.5 Vancomycin Trough 13 H U Histopl Galactoman Ag U Histopl Galact Ant Int A. galactomannan Ag A. galactomannan Ag Idx 01/18/19 01/18/19 03:55 04:17 WBC 0.5 L* RBC 2.57 L Hgb 7.4 L Hct 22.1 L MCV 86.0 MCH 28.8 MCHC 33.5 RDW 15.7 H Plt Count 9 L* MPV TNP Immature Gran % 0.0 Seg Neutrophils % 2.2 Lymphocytes % 89.1 Monocytes % 8.7 Eosinophils % 0.0 Basophils % 0.0 Neutrophils # 0.0 L Lymphocytes # 0.5 L Monocytes # 0.0 Eosinophils # 0.0 Basophils # 0.0 Platelet Estimate Marked Decrease L Sodium Potassium Chloride Carbon Dioxide BUN Creatinine Est GFR ( Amer) Est GFR (Non-Af Amer) BUN/Creatinine Ratio Glucose POC Glucose Calculated Osmolality Calcium Venous Ioniz Calcium 0.97 L Phosphorus Magnesium Vancomycin Trough U Histopl Galactoman Ag U Histopl Galact Ant Int A. galactomannan Ag A. galactomannan Ag Idx - ABG Interpretation ABG results: ABG ABG pH 7.43 pH Units (7.32-7.45) 01/16/19 08:25 ABG pCO2 32 mmHg (35-45) L 01/16/19 08:25 ABG pO2 50 mmHg (85-104) L* 01/16/19 08:25 ABG O2 Saturation 87 % (95-98) L 01/16/19 08:25 PT/INR, D-dimer PT 18.1 Seconds (9.4-12.1) H 01/14/19 00:24 Palliative Scale - Palliative Performance Scale How ambulatory is this patient?: Mainly in bed What is patient's level of activity and evidence of disease?: Unable to do any work, Extensive disease How much self-care assistance does patient require?: Mainly assistance How much oral intake does the patient have?: Normal or reduced What is this patient's level of consciousness?: Full Palliative Performance Score: 40 % Consult Discharge Plan - Plan Referrals: Dennys Sabillon DO [Primary Care Provider] -
[2019-01-18] MEDS: Ipratropium/Albuterol Neb 3 ML IH SCH ×3 (11:52→21:55)
[2019-01-18 12:08] LABS: Hematocrit 25.1 % (35.3-44.9); Hemoglobin 8.3 g/dL (11.5-15.4)
[2019-01-18 12:17] LABS: VBG Ionized Calcium 0.95 mmol/L (1.15-1.35)
--- NOTE | 2019-01-18 14:20 | Oncology Inp Progress Note ---
<EfrainKatiana L - Last Filed: 01/18/19 14:48> Date of Encounter: 01/18/19 Time of Encounter: 13:30 (1) Anemia Status: Acute Assessment and plan: Normocytic, Normochromic anemia in the setting of MDS s/p decitabine and severe sepsis Denies s/s bleeding No evidence of hemolysis given low LDH and normal indirect bili, apple 1+ B12 severely deficient at 105, s/p B12, started oral supplementation (avoid IM/SQ with low plt count) Folate/Iron replete Plan: PRBC for hgb <7 or symptomatic anemia Blood smear consistent with MDS Qualifiers: Anemia type: B12 deficiency Vitamin B12 deficiency anemia type: unspecified B12 deficiency Qualified Code(s): D51.9 - Vitamin B12 deficiency anemia, unspecified (2) Myelodysplasia (myelodysplastic syndrome) Status: Chronic Assessment and plan: MDS with SF3B1 mutation (favorable prognosis) Anemia, macrocytosis ringed sideroblasts, suspected MDS. Progressive pancytopenia, started decitabine, d1-d5 q 28 day schedule start C1 12/20/18 Plan: Her severe pancytopenia likely secondary to decitabine also in the setting of severe sepsis/bacteremia coupled by low baseline 2/2 MDS vs. acute transformation to AML (felt to be less likely given her SF3B1 mutation, this would generally be seen late in course of disease, she also has no peripheral blasts or blasts noted on peripheral smear) Discussed with Dr. Mendoza and no need to transfer to tertiary care center at this point for BMB until respiratory/infectious status improves, if blood counts do not improve following improvement of infection, may consider BMB at this time time Further treatment recommendations TBD dependent upon clinical recovery, overall prognosis at this time is guarded secondary to patients respiratory status and need for pressor support Palliative care following, appreciate recs, following discussion with patient//daughter today, they wish to continue with aggressive measures although agreeable to changing code status as patient wishes against mechanical intubation Plt count noted at 9 today, s/p transfusion yesterday for plt count of 11. Currently she is w/o s/s bleeding, for concern for fluid overload we are holding on transfusion today as she received PRBC (3) Severe neutropenia Status: Acute Assessment and plan: ANC continues to be at 0 (documented since 01/07) Plan: In the setting of septic shock with E. Coli bacteremia Continue neupogen 300 mcg daily until ANC >1.5k (dose #5 tonight) Neutropenic precautions WBC slowly trending upward, hopeful neutrophil count will follow (4) Septic shock Status: Acute Assessment and plan: Patient developed septic shock requiring transfer to ICU with levophed support Blood cultures x2 positive for E. coli, she has had prolonged neutropenia for nearly 4 weeks Repeat blood cultures drawn 01/15/19 are NGTD x 2 sets. Source likely [id number]-[id number] noted on CT, also suspicious for PNA ID recommendations appreciated, ATB per ID Continue neupogen 300 mcg daily until ANC >1.5k CT chest: Large masslike consolidation in the left upper lobe, mediastinal lymph node and several scattered spiculated nodules are highly suspicious for malignancy. Multifocal pneumonia remains a possibility but is considered less likely. Oncology: Subj Interval history: Ms. Olguin continues to require pressor support with levophed. ANC 0 today, she is scheduled for her 5th dose of neupogen this evening. Afebrile overnight. She has no physical complaints other than feeling fatigued and dry/sore mouth. Patient, patients and patients daughter (via telephone) met with palliative care earlier today. When asked about discussion patient states she is not up for discussion and wishes for me to ask palliative care team about the details. Discussed with Dr. Waters as no family present during my assessment, patient and family agreeable to code status change to include DNRCCA DNI but wish to continue aggressive treatment approach otherwise. Patient stated multiple times during conversation that she wants to get better and is not ready to . - Constitutional General appearance: no febrile Exam: mild distress, appears acute and chronically ill, drowsy but awakens to voice and then falls asleep during conversations - Head Head exam: Present: atraumatic - ENT ENT exam: Present: mucous membranes dry Additional comments: extremely dry oral mucosa with mixed vesicular lesions and white plaques - Respiratory Respiratory exam: Present: rales, rhonchi Additional comments: mild respiratory distress/tachypneic, on high flow O2 - Cardiovascular Cardiovascular exam: Present: RRR, tachycardia - GI/Abdominal GI/Abdominal exam: Present: normal bowel sounds, soft. Absent: tenderness - Extremities Exam Extremities exam: Present: normal inspection. Absent: calf tenderness - Neurological Exam Neurological exam: Present: alert, oriented X3, no focal deficits, strengths equal and symetr throughout - Skin Skin exam: Present: dry, warm Additional comments: pallor/greyish discoloration Oncology: Obj Data - Labs CBC & Chem 7: 01/18/19 11:31 01/18/19 03:55 Consult Discharge Plan - Plan Referrals: Dennys Sabillon DO [Primary Care Provider] - Inpatient Charges Provider: Dr. Radha Duenas <Anca Duenas - Last Filed: 01/19/19 16:54> Date of Encounter: 01/19/19 (1) Pancytopenia Status: Acute Oncology: Subj Interval history: She continues to need vasopressors, transfusion support. Neutropenia, sepsis on IV antibiotics. No clinical evidence for bleeding. I examined this patient and my medical decision-making was reviewed with the Advanced Practice Nurse, Katiana Zuniga. I agree with the documented findings, disposition and treatment plan as described. Oncology: Obj Data - Labs CBC & Chem 7: 01/19/19 04:00 01/19/19 04:00 Inpatient Charges Provider: Dr. Radha Duenas Follow up - Inpatient: [id number]
[2019-01-18] MEDS ORDERED: 0.9 % Sodium Chloride 250 ML ONE (14:28)
[2019-01-18 15:15] LABS: Hematocrit 24.3 % (35.3-44.9)
[2019-01-18 15:16] LABS: Hemoglobin 8.2 g/dL (11.5-15.4)
[2019-01-18 15:58] LABS: Potassium,Urine 76.3 mEq/L; Sodium, Urine 20.5 mEq/L
[2019-01-18] MEDS ORDERED: Vancomycin 1 EACH in EMPTY BAG 1 EACH IVPB SCH (22:00)
[2019-01-18] MEDS: Levofloxacin 750 MG/150 ML 750 MG/150 ML BAG IVPB SCH (22:18)
[2019-01-19 00:31] LABS: VBG Ionized Calcium 0.88 mmol/L (1.15-1.35)
[2019-01-19] MEDS: Piperacillin/Tazobactam 3.375 GM in 0.9 % Sodium Chloride Mini Bag 100 ML IVPB SCH (02:16)
[2019-01-19] MEDS: Ipratropium/Albuterol Neb 3 ML IH SCH (03:12)
[2019-01-19 04:43] LABS: Hematocrit 27.8 % (35.3-44.9)
[2019-01-19 04:45] LABS: Hemoglobin 8.9 g/dL (11.5-15.4); Lymphocytes % 91.5 %; Mean Corpuscular Hemoglobin 29.1 pg (28.0-33.3); Mean Corpuscular Volume 90.8 fL (83.0-100.0); Monocytes % 6.4 %; Red Blood Count 3.06 M/mcL (3.82-4.97); Red Cell Distribution Width 15.9 % (11.5-14.5); Segmented Neutrophils % 2.1 %
[2019-01-19] MEDS ORDERED: 0.9 % Sodium Chloride 250 ML ONE (05:15)
[2019-01-19 05:16] LABS: Albumin 1.9 g/dL (3.5-5.7); Albumin/Globulin Ratio 0.5 (1.1-2.2); Bilirubin,Total 1.1 mg/dL (0.3-1.0); Calcium 6.8 mg/dL (8.6-10.3); Globulin 3.6 g/dL (2.4-3.5); Lymphocytes # 0.5 K/mcL (0.6-4.6); Magnesium 2.9 mg/dL (1.6-2.6); Total Protein 5.5 g/dL (6.4-8.9)
[2019-01-19 05:17] LABS: Platelet Count 6 K/mcL (140-400)
[2019-01-19 05:34] LABS: Platelet Estimate Marked Decrease (Normal)
[2019-01-19] MEDS ORDERED: *HR* EPINEPHrine 1 MG/10 ML SYRINGE IVP ONE (05:43)
[2019-01-19] MEDS ORDERED: *HR* Dextrose 50 % in Water (Syg) 50 ML SYRINGE IVC ONE (05:43)
--- NOTE | 2019-01-19 05:49 | Death Note ---
Discharge Sum: Summary - Date and Time Date of admission: 01/13/19 12:03 Date of : 01/19/19 Time of : 05:44 - Summary Details: Mrs Olguin is a 68yo female with a PMH of HLD, HTN, thyroid disease, myelodys plastic syndrome and was sent over from [facility] onc on 01/13/19. She was admitted to the hospital and was found to have a hemoglobin of 4.7, she endorsed feeling weak and tired and was sent for a transfusion. She had multiple admissions for anemia and received multiple blood transfusions. On 01/07 she had a hemoglobin of 6.7 and she received 3 units of blood and 2 units of platelets. She also received Epogen therapy in 10/2018 without improvement. On CXR she was found to have RYAN consolidation and was sent for CT chest, which revealed Large masslike consolidation in the left upper lobe, mediastinal lymph node and several scattered spiculated nodules are highly suspicious for malignancy. Multifocal pneumonia remains a possibility but is considered less likely. The patient was also pancytopenic on admission and had continuing decline of platelets throughout her hospital stay. [facility]-onc started her on neupogin and she was on neutropenic precautions throughout her stay. ANC 0 since 01/07/2019. Neutropenia with ANC < 1500 since June 2018 On hospital day 1 she was transferred to ICU. She spiked a fever during blood transfusion, became tacycardic and hypotensive. She had multiple fluid boluses and had broadening of abx per night team. She received a right femoral CVC. She was started on levophed. Blood cx were positive for e coli and she was switched from zosyn to meropenem. She was continued on vancomycin/levaquin. The patient continued to worsen and respiratory status declined. She began to have increasing oxygen needs and was started on BiPAP therapy. On 01/17 palliative care was consulted. Meeting with the family was set up for 01/18. The patient had explained that current medical condition was failed for the result of her hoped recovery. CODE STATUS was discussed and it was agreed that she would be made a DNR-CCA-DNI, state form was signed by Dennys (paul Stockton). The decision was made for continued aggressive care for a few more days with follow up meeting on 01/19. Oncology also saw the pt on 01/18 and stated that severe pancytopenia was likely 2/2 decitabine also in the setting of severe sepsis/bacteremia coupled by low baseline 2/2 MDS vs. acute transformation to AML (felt to be less likely given her SF3B1 mutation, this would generally be seen late in course of disease, she also has no peripheral blasts or blasts noted on peripheral smear). At approx 0450 am MARCOS MCNEIL was called overhead. The pt went into cardiac arrest and received 3 rounds of epinephrine and CPR, was in PEA on monitor. The pt was listed as a FULL CODE in the computer, however, DNR papers were signed without a change in CODE STATUS. Respiratory therapy intubated the patient. The pt was pronounced at 0504, however, nurse realized she was able to squeeze hand. She continued to be bagged and was hooked up to monitor. On review of labs, the pt was noted to be hyperkalemic and she relieved insulin w/ dextrose, calcium glucuronate. Pt noted to be hypotensive with a MAP dropping into the 40's. Epinephrine was started on the pt and levophed was maxed out. The pt BP continued to drop with an increase in HR. Pharmacy called to bring vasopressin STAT. The pt's family was attempted to be contacted x 2 without answer. She went into asystole and was pronounced at [address] Saini. - Additional Data Confirmation of as documented by pronouncing clinician: no pulse, no respirations, no heart sounds, pupils fixed and dilated Family: contacted, attempt made (attempt made to contact x 2) Attending physician: Caryn Luna MD Was code activated?: Yes Autopsy requested?: No cigar packing examiner notified?: No Organ bank notified?: No Advance directives: Yes Hospice patient?: No Discharge Sum: Diag - PCOD Probable Cause of : Cardiac arrest Discharge Sum: Prov - Provider Primary care physician: Dennys Sabillon DO Admitting clinician: Jadon French Attending physician on admission: Jadon French Consults: 01/14/19 06:41 Consult to Pulmonology [CONS] Routine Consulting Provider: Pulm Crit Care [facility] Sleep Jil Reason for Consult: Septic shock Call Completed: Yes 01/14/19 14:49 Consult to Infectious Diseases [CONS] Routine Consulting Provider: Infectious Disease [place] Reason for Consult: Neutropenic, Positive blood cultures for E Coli Time Notified: 14:49 Call Completed: Yes 01/17/19 13:12 Consult to Palliative Care [CONS] Routine Comment: Consulting Provider: Palliative Care Jil Reason for Consult: goals of care, code status Call Completed: Yes Pronouncing clinician: Randy Torres
[2019-01-19 07:41] VITALS: BP 93/38
[2019-01-19] MEDS ORDERED: Pantoprazole 40 MG VIAL IVP SCH (09:00)
[2019-01-19] MEDS ORDERED: Levothyroxine Sodium 100 MCG VIAL IVP SCH (09:00)
[2019-01-19] MEDS ORDERED: Piperacillin/Tazobactam 3.375 GM in 0.9 % Sodium Chloride Mini Bag 100 ML IVPB SCH (15:00)
--- NOTE | 2019-01-20 09:47 | Electrocardiograph Report ---
[address] [place], [place] [address] Test Date: 2019-01-19 Pat Name: Karina Olguin Department: 109 Room: [facility] Gender: F [employer]: : [id number] Requested By: Milind Saini Order Number: [id number] Reading MD: Derrick Daly Measurements Intervals [place] Rate: 86 P: CO: 0 QRS: 77 QRSD: 110 T: 37 QT: 346 QTc: 389 Interpretive Statements ATRIAL FIBRILLATION LOW QRS VOLTAGE IN EXTREMITY LEADS NONSPECIFIC T-WAVE ABNORMALITY ABNORMAL RHYTHM ECG Electronically Signed On 01-20-2019 9:45:38 EDT by Derrick Daly
== END 2019-01-19 05:44 | disposition expired | DRG 871 ==
LOC: 3BNU 09:59 → EMEROOARM 09:59 → 3BNU 16:11 → 2ANU 19:20 → ICNU 01-14 00:12
PROVIDERS: ADMIT Internal Medicine; ATTEND Internal Medicine